=== PATIENT | female | born 1955 | race Caucasian/White ===

== ENCOUNTER 2016-06-18 13:25 | Observation (INO) ==
--- NOTE | 2016-06-18 13:38 | Emergency Department Note ---
Disposition Clinical Impression: Hypoxia, CHF (congestive heart failure), Obesity Disposition: Admitted As Inpatient Condition: Good Time of Disposition: 15:30 (clarisa carr) Neuro HPI - General Chief Complaint: ED Neuro Symptoms/Deficit Stated Complaint: int slurred speech x3 days Time Seen by Provider: 06/18/16 13:40 Source: patient, EMS Mode of arrival: ambulatory Limitations: no limitations Nursing Notes Reviewed: Yes Vital Signs Reviewed: Yes - History of Present Illness HPI Narrative: Emesis for the last 3 days increasing right-sided weakness and increasing sleeping patient tells me though she is just tired and does not feel good denies any headache any blurred vision double vision patient does not feel that she has had a stroke she said this is significantly different than prior she has a cough hemoptysis or sputum production but then later tells me she is having dyspnea family tells me that she is having cough and congestion she denies any blurred vision double vision loss as she denies any abdominal pain or discomfort she denies any lightheadedness dizziness she does admit to having bilateral lower extremity edema has taped with Nayla boots at this time shows Onset of Symptoms Date: 06/15/16 Symptom Onset Unknown: No Timing confirmed by: family member Location: speech, altered History of same: Yes (mar CVA) Severity: mild Quality: weakness Symptoms Improving: No (no change per family) Improves with: none Worsens with: none Context: gradual onset On Anticoagulants: No Associated symptoms: Reports: confusion, loss of appetite, malaise, weakness. Denies: chest pain, cough, diaphoresis, fever/chills, headaches, nausea/vomiting , vertigo, shortness of breath, syncope Treatments Prior to Arrival: none - Related Data Home Medications: Home Medications Medication Instructions Recorded Confirmed Aspirin [Lo-Dose Aspirin EC] 81 mg PO DAILY 01/18/16 06/18/16 Calcium Carbonate [Calcium] 600 mg PO DAILY 01/18/16 06/18/16 DiphenhydraMINE [Benadryl] 25 mg PO PRN PRN 01/18/16 06/18/16 Losartan [Cozaar] 25 mg PO DAILY 01/18/16 06/18/16 Methocarbamol [Robaxin-750] 750 mg PO TID 01/18/16 06/18/16 OxyCODONE/APAP 10/325 [Percocet 1 each PO Q6HR PRN 01/18/16 06/18/16 10/325 MG] Saxagliptin HCl [Onglyza] 5 mg PO DAILY 01/18/16 06/18/16 Sertraline [Zoloft] 25 mg PO DAILY 01/18/16 06/18/16 Tiotropium [Spiriva] 18 mcg IH DAILY 01/18/16 06/18/16 Previous Rx's Medication Instructions Recorded Metoprolol [Lopressor] 50 mg PO BID #60 tablet 01/20/16 Verapamil ER (24 HR) [Calan SR] 180 mg PO DAILY #30 tablet.er 01/20/16 Bumetanide [Bumex] 1 mg PO DAILY #30 tablet 02/15/16 Potassium Chloride [Klor-Con 20 meq PO BID #120 02/15/16 Sprinkle] Albuterol Sulfate [Albuterol 2 puff IH Q4HR PRN #0 03/31/16 Inhaler] Ascorbic Acid [Vitamin C] 500 mg PO 0630 #30 tablet 03/31/16 Ferrous Sulfate 325 mg PO 0630 #30 tablet 03/31/16 Allergies/Adverse Reactions: Allergies Allergy/AdvReac Type Severity Reaction Status Date / Time lisinopril AdvReac Cough Verified 12/18/15 15:01 morphine AdvReac Nausea Verified 12/18/15 15:01 Penicillins AdvReac Nausea Verified 12/18/15 15:01 ranitidine [From Zantac] AdvReac Diarrhea Verified 12/18/15 15:01 All systems ED: reviewed and negative except as stated. Constitutional: Reports: weakness. Denies: fever, chills, weight change Eyes: Denies: vision change ENT ED: Denies: ear pain, throat pain Cardiovascular: Denies: chest pain, palpitations Respiratory: Reports: cough, dyspnea, wheezes, sputum production Gastrointestinal: Denies: abdominal pain, nausea, vomiting Genitourinary: Denies: urgency, dysuria, frequency Musculoskeletal: Denies: back pain, neck pain, joint swelling Integumentary: Denies: rash, abrasion, lesions Neurological: Denies: headache, weakness Psychiatric: Denies: anxiety, depression Endocrine: Denies: fatigue Hematological/Lymphatic: Denies: easy bleeding Allergic/Immunologic: Denies: facial swelling Past Medical History - Past Medical History Attestation: Yes The following information was validated with the patient. Source: patient, old records reviewed, nursing notes reviewed Medical history: Reports: arthritis, cancer, COPD, CVA, diabetes, GERD, hypertension, migraine, osteoporosis, other Surgical history: Reports: appendectomy, breast surgery, , cancer surgery, hysterectomy, knee replacement, other Psychiatric history: Reports: anxiety, depression TEST CASE DEVELOPER history: Reports: no TEST CASE DEVELOPER history - Social History Smoking Status: Current every day smoker Smokeless Tobacco Status: No Alcohol use: Reports: none Drug use: Reports: none Physical Exam - General Limitations: no limitations General appearance: alert, in no apparent distress - Head Head exam: atraumatic, normocephalic, normal inspection - Eye Eye exam: Present: normal appearance, PERRL, EOMI - ENT ENT exam: normal exam, normal oropharynx, mucous membranes moist, normal external ear exam - Neck Neck exam: Present: normal inspection, full ROM, trachea midline - Chest Chest inspection: Present: normal inspection, symmetric chest wall rise - Respiratory Respiratory exam: Present: normal lung sounds bilaterally - Cardiovascular Cardiovascular exam: Present: regular rate, normal rhythm, normal heart sounds - Abdominal Exam Abdominal exam: Present: soft, Non-Tender, normal bowel sounds. Absent: mass, pulsatile mass - Extremities Exam Extremities exam: Present: pedal edema, joint swelling, other (slightly ) - Expanded Upper Extremity Exam Shoulder exam: Present: normal inspection, full ROM Arm exam: Present: normal inspection, full ROM Elbow exam: Present: normal inspection, full ROM Forearm/Wrist exam: Present: normal inspection, full ROM Hand exam: Present: normal inspection, full ROM Vascular exam: Normal: capillary refill, radial pulse - Expanded Lower Extremity Exam Hip/Pelvis exam: Present: normal inspection, full ROM Upper leg exam: Present: normal inspection, full ROM Knee exam: Present: normal inspection, full ROM Lower leg exam: Present: normal inspection, full ROM, tenderness, swelling Ankle exam: Present: normal inspection, full ROM, tenderness, swelling Foot/toe exam: Present: normal inspection, full ROM, tenderness, swelling Neurovascular/Tendon exam: Present: normal capillary refill, normal fine/light touch. Absent: motor deficit, sensory deficit, tendon deficit - Back Exam Back exam: Present: normal inspection, full ROM - Neurological Exam Neurological exam: Present: alert, oriented X3, CN II-XII intact - Psychiatric Psychiatric exam: Present: normal affect, normal mood - Skin Skin exam: Present: warm, dry, intact, normal color Course Course Narrative: She presents was seen and examined laboratory data was done showing no acute evidence of stroke at this time may be because of the results of his recent infection or his hypoxia this made given him the presentation that he was having some weakness as result discussion with the family and the patient the patient was added for observation for Dr. Ball Vital Signs Temperature 97.5 F L 06/18/16 13:28 Pulse Rate 77 06/18/16 13:28 Respiratory Rate 18 06/18/16 13:28 Blood Pressure 134/51 06/18/16 13:28 O2 Sat by Pulse Oximetry 85 L 06/18/16 13:28 Temperature 97.6 F 06/18/16 16:15 Pulse Rate 81 06/18/16 16:15 Respiratory Rate 17 06/18/16 16:22 Blood Pressure 133/56 06/18/16 16:15 O2 Sat by Pulse Oximetry 91 L 06/18/16 16:22 Oxygen Delivery Oxygen Delivery Nasal Cannula Neuro Symptoms/Deficit - Differential Diagnosis Likely: cerebrovascular accident - Medical Records Medical records reviewed: Yes I reviewed the patient's medical records. - Lab Data Lab results reviewed: Yes I reviewed the patient's lab results. Result diagrams: 06/18/16 13:49 06/18/16 13:49 Lab Results 06/18/16 06/18/16 06/18/16 Range/Units 13:37 13:49 13:49 WBC 12.1 H (4.3-11.1) K/mcL RBC 5.01 H (3.82-4.97) M/mcL Hgb 13.7 (11.5-15.4) g/dL Hct 43.2 (35.3-44.9) % MCV 86.2 (83.0-100.0) fL MCH 27.3 L (28.0-33.3) pg MCHC 31.7 (31.6-35.5) g/dL RDW 17.0 H (11.5-14.5) % Plt Count 167 (140-400) K/mcL MPV 12.4 (9.4-12.4) fL Immature Gran % 0.6 (0-4) % Seg Neutrophils % 63.0 % Lymphocytes % 25.5 % Monocytes % 9.1 % Eosinophils % 1.2 % Basophils % 0.6 % Neutrophils # 7.6 (1.6-8.9) K/mcL Lymphocytes # 3.1 (0.6-4.6) K/mcL Monocytes # 1.1 (0.0-1.3) K/mcL Eosinophils # 0.2 (0.0-0.6) K/mcL Basophils # 0.1 (0.0-0.2) K/mcL Platelet Estimate Normal (Normal) Large Platelets Present A (Not Present) Anisocytosis 1+ A (Not Present) PT 13.9 H (9.4-12.1) Seconds INR 1.3 APTT 38.3 H (26.0-36.0) Seconds Sodium (136-145) mEq/L Potassium (3.5-4.5) mEq/L Chloride (98-109) mEq/L Carbon Dioxide (19-29) mEq/L BUN (7-20) mg/dL Creatinine (0.57-1.11) mg/dL Est GFR ( Amer) (> 60) Est GFR (Non-Af Amer) (> 60) BUN/Creatinine Ratio (6-26) Glucose (70-99) mg/dL POC Glucose 113 H (58-89) Calculated Osmolality (280-300) Calcium (8.6-10.8) mg/dL Troponin I (0-0.03) ng/mL B-Natriuretic Peptide (0-100) pg/mL TSH (0.350-4.840) mcIU/mL 06/18/16 06/18/16 06/18/16 Range/Units 13:49 13:49 13:49 WBC (4.3-11.1) K/mcL RBC (3.82-4.97) M/mcL Hgb (11.5-15.4) g/dL Hct (35.3-44.9) % MCV (83.0-100.0) fL MCH (28.0-33.3) pg MCHC (31.6-35.5) g/dL RDW (11.5-14.5) % Plt Count (140-400) K/mcL MPV (9.4-12.4) fL Immature Gran % (0-4) % Seg Neutrophils % % Lymphocytes % % Monocytes % % Eosinophils % % Basophils % % Neutrophils # (1.6-8.9) K/mcL Lymphocytes # (0.6-4.6) K/mcL Monocytes # (0.0-1.3) K/mcL Eosinophils # (0.0-0.6) K/mcL Basophils # (0.0-0.2) K/mcL Platelet Estimate (Normal) Large Platelets (Not Present) Anisocytosis (Not Present) PT (9.4-12.1) Seconds INR APTT (26.0-36.0) Seconds Sodium 138 (136-145) mEq/L Potassium 4.1 (3.5-4.5) mEq/L Chloride 98 (98-109) mEq/L Carbon Dioxide 30 H (19-29) mEq/L BUN 14 (7-20) mg/dL Creatinine 0.83 (0.57-1.11) mg/dL Est GFR ( Amer) > 60 (> 60) Est GFR (Non-Af Amer) > 60 (> 60) BUN/Creatinine Ratio 17 (6-26) Glucose 109 H (70-99) mg/dL POC Glucose (58-89) Calculated Osmolality 287 (280-300) Calcium 8.6 (8.6-10.8) mg/dL Troponin I 0.00 (0-0.03) ng/mL B-Natriuretic Peptide 169 H (0-100) pg/mL TSH 1.113 (0.350-4.840) mcIU/mL - Radiology Data Radiology results reviewed: Yes I reviewed the patient's radiology results. ITS Impressions Chest X-Ray 06/18/16 13:35 IMPRESSION: Cardiomegaly with borderline vascular congestion. D/ / Sergo Bass MD / Sergo Bass MD Interpreting Provider: Sergo Bass MD Head CT 06/18/16 13:35 IMPRESSION: No acute intracranial abnormality. If acute cerebral infarct is a clinical concern, an MRI is a sensitive study. D/ / Peggy Jacinto Cha, MD / Peggy Jacinto Cha, MD Interpreting Provider: Peggy Jacinto Cha, MD - EKG Data EKG attestation: Yes I reviewed and interpreted this EKG. EKG results narrative: Rhythm NSR LBBB Heart Rate 74 MA 184 QRS 148 QT 435 Axes -40 TPA Checklist - LKW: 3-4.5 hrs Add. Contraindications Patient/family understanding: The patient/family members have been counseled and understood the risk, benefit , and alternatives of treatment.
[2016-06-18 14:00] LABS: Basophils # 0.1 K/mcL (0.0-0.2); Basophils % 0.6 %; Eosinophils # 0.2 K/mcL (0.0-0.6); Eosinophils % 1.2 %; Hematocrit 43.2 % (35.3-44.9); Hemoglobin 13.7 g/dL (11.5-15.4); Immature Granulocytes % 0.6 % (0-4); Lymphocytes # 3.1 K/mcL (0.6-4.6); Lymphocytes % 25.5 %; Mean Corpuscular HGB Conc 31.7 g/dL (31.6-35.5); Mean Corpuscular Hemoglobin 27.3 pg (28.0-33.3); Mean Corpuscular Volume 86.2 fL (83.0-100.0); Mean Platelet Volume 12.4 fL (9.4-12.4); Monocytes # 1.1 K/mcL (0.0-1.3); Monocytes % 9.1 %; Neutrophils # 7.6 K/mcL (1.6-8.9); Platelet Count 167 K/mcL (140-400); Red Blood Count 5.01 M/mcL (3.82-4.97)
[2016-06-18 14:06] LABS: INR 1.3; Prothrombin Time 13.9 Seconds (9.4-12.1)
[2016-06-18 14:14] LABS: Activated Partial Thrombo Time 38.3 Seconds (26.0-36.0)
[2016-06-18 14:15] LABS: BUN/Creatinine Ratio 17 (6-26); Blood Urea Nitrogen 14 mg/dL (7-20); Calcium 8.6 mg/dL (8.6-10.8); Carbon Dioxide 30 mEq/L (19-29); Chloride 98 mEq/L (98-109); Glucose 109 mg/dL (70-99); Osmolality,Calculated 287 (280-300); Potassium 4.1 mEq/L (3.5-4.5); Sodium 138 mEq/L (136-145); eGFR For African Americans > 60 (> 60); eGFR For Non-African Americans > 60 (> 60)
[2016-06-18 14:20] LABS: Anisocytosis 1+ (Not Present); Large Platelets Present (Not Present); Platelet Estimate Normal (Normal)
[2016-06-18 14:36] LABS: Thyroid Stimulating Hormone 1.113 mcIU/mL (0.350-4.840)
[2016-06-18] MEDS ORDERED: Bumetanide 1 MG/4 ML VIAL IVP ONE (14:57)
[2016-06-18 15:26] LABS: Bilirubin,Urine Negative (Negative); Blood,Urine Large (Negative); Clarity,Urine Cloudy (Clear); Color,Urine Yellow (Yellow); Glucose,Urine (UA) Normal (Normal); Ketones,Urine Negative (Negative); Leukocyte Esterase,Urine Large (Negative); Nitrite,Urine Positive (Negative); PH,Urine 7.5 pH Units (5.0-8.0); Protein,Urine 30 mg/dL (Neg-Trace); Specific Gravity,Urine 1.015 (1.010-1.025); Urobilinogen,Urine Normal (Normal)
[2016-06-18 15:32] LABS: RBC,Urine 30-50 per hpf (0-3); WBC,Urine TNTC per hpf (0-3)
[2016-06-18 15:33] LABS: Bacteria,Urine Moderate per hpf (None-Few); Squamous Epithelial Cell,Urine Few per lpf (None-Few)
[2016-06-18] MEDS ORDERED: Naloxone 0.4 MG/ML INJ IVP PRN (16:04)
[2016-06-18] MEDS ORDERED: CefTRIAXone 1,000 MG in D5% in Water (Mini-Bag+) 100 ML IVPB ONE (16:04)
[2016-06-18] MEDS ORDERED: Bumetanide 1 MG/4 ML VIAL IVP SCH (17:00)
[2016-06-18] MEDS: Methocarbamol 500 MG TABLET PO SCH (22:09)
[2016-06-18] MEDS: *HR* OxyCODONE/APAP 10/325 TABLET PO PRN (22:12)
[2016-06-19] MEDS: *HR* OxyCODONE/APAP 10/325 TABLET PO PRN ×2 (04:31→10:27)
[2016-06-19] MEDS ORDERED: Ascorbic Acid 500 MG TABLET PO SCH (06:30)
[2016-06-19 06:40] LABS: Basophils # 0.1 K/mcL (0.0-0.2); Basophils % 0.9 %; Eosinophils # 0.1 K/mcL (0.0-0.6); Eosinophils % 1.1 %; Hematocrit 45.5 % (35.3-44.9); Hemoglobin 14.1 g/dL (11.5-15.4); Immature Granulocytes % 0.6 % (0-4); Lymphocytes # 2.2 K/mcL (0.6-4.6); Lymphocytes % 19.2 %; Monocytes % 8.5 %; Neutrophils # 8.1 K/mcL (1.6-8.9); Platelet Count 170 K/mcL (140-400); Red Blood Count 5.23 M/mcL (3.82-4.97); Red Cell Distribution Width 16.7 % (11.5-14.5); Segmented Neutrophils % 69.7 %
[2016-06-19 06:45] LABS: INR 1.4; Prothrombin Time 14.7 Seconds (9.4-12.1)
[2016-06-19 06:48] LABS: Activated Partial Thrombo Time 39.8 Seconds (26.0-36.0)
[2016-06-19 06:56] LABS: BUN/Creatinine Ratio 16 (6-26); Blood Urea Nitrogen 11 mg/dL (7-20); Calcium 8.9 mg/dL (8.6-10.8); Carbon Dioxide 32 mEq/L (19-29); Chloride 99 mEq/L (98-109); Glucose 120 mg/dL (70-99); Osmolality,Calculated 297 (280-300); Potassium 3.8 mEq/L (3.5-4.5); Sodium 143 mEq/L (136-145); eGFR For African Americans > 60 (> 60); eGFR For Non-African Americans > 60 (> 60)
[2016-06-19] MEDS ORDERED: Bumetanide 1 MG/4 ML VIAL IVP SCH (08:00)
[2016-06-19 08:04] VITALS: BP 117/65
[2016-06-19] MEDS ORDERED: Verapamil ER (24 HR) 180 MG TABLET.ER PO SCH (09:00)
[2016-06-19] MEDS ORDERED: Tiotropium 18 MCG inhalation IH SCH (09:00)
[2016-06-19] MEDS ORDERED: Aspirin Enteric Coated 81 MG Tablet PO SCH (09:00)
[2016-06-19] MEDS ORDERED: Pantoprazole 40 MG VIAL IVP SCH (09:00)
[2016-06-19] MEDS: Methocarbamol 500 MG TABLET PO SCH (09:17)
--- NOTE | 2016-06-19 10:16 | Internal Med History&Physical ---
Date of Encounter: 06/19/16 Time of Encounter: 09:50 Assessment and Plan (1) UTI (urinary tract infection) Current visit: Yes Status: Acute She was given Rocephin in the emergency room. Further workup will be done as needed. Qualifiers: Urinary tract infection type: site unspecified Hematuria presence: with hematuria Qualified Code(s): N39.0 - Urinary tract infection, site not specified; R31.9 - Hematuria, unspecified Internal Medicine - H&P: HPI Chief complaint: Nausea Admitted From: Home Plans for Post Hospital Care: Home History of present illness: Ms. Ocampo is a 61 year old female who came to emergency room stating she had nausea for 3 days. She had a minimal vomiting but significant dry heaves. There was no diarrhea or significant abdominal pain or dyspnea. Her daughter convinced her to come to emergency room. She was evaluated and admitted to [facility] floor for ongoing care needs. She states she has had no further significant dry heaves and has no new complaints. She feels improved and wishes to be discharged home. Past Med Surg Social Fam HX - Past Medical History Medical history: arthritis, cancer, COPD, CVA, diabetes, GERD, hypertension, migraine, osteoporosis, other Psychiatric history: anxiety, depression - Past Surgical History Surgical History: appendectomy, breast surgery, , cancer surgery, hysterectomy, knee replacement, other - Social History Smoking Status: Current every day smoker Smokeless Tobacco Status: No Alcohol use: none Drug use: none - Family History Father History Unknown: Yes Hx Family Cardiac Disorders: Yes ([place]) Hx Family Endocrine Disorder: Yes Internal Medicine - H&P: Meds Aspirin [Lo-Dose Aspirin EC] 81 mg PO DAILY 01/18/16 [History] Calcium Carbonate [Calcium] 600 mg PO DAILY 01/18/16 [History] DiphenhydraMINE [Benadryl] 25 mg PO PRN PRN 01/18/16 [History] Losartan [Cozaar] 25 mg PO DAILY 01/18/16 [History] Methocarbamol [Robaxin-750] 750 mg PO TID 01/18/16 [History] OxyCODONE/APAP 10/325 [Percocet 10/325 MG] 1 each PO Q6HR PRN 01/18/16 [History] Saxagliptin HCl [Onglyza] 5 mg PO DAILY 01/18/16 [History] Sertraline [Zoloft] 25 mg PO DAILY 01/18/16 [History] Tiotropium [Spiriva] 18 mcg IH DAILY 01/18/16 [History] Metoprolol [Lopressor] 50 mg PO BID #60 tablet 01/20/16 [Rx] Verapamil ER (24 HR) [Calan SR] 180 mg PO DAILY #30 tablet.er 01/20/16 [Rx] Bumetanide [Bumex] 1 mg PO DAILY #30 tablet 02/15/16 [Rx] Potassium Chloride [Klor-Con Sprinkle] 20 meq PO BID #120 02/15/16 [Rx] Albuterol Sulfate [Albuterol Inhaler] 2 puff IH Q4HR PRN #0 03/31/16 [Rx] Ascorbic Acid [Vitamin C] 500 mg PO 0630 #30 tablet 03/31/16 [Rx] Ferrous Sulfate 325 mg PO 0630 #30 tablet 03/31/16 [Rx] Allergies lisinopril Adverse Reaction (Verified 12/18/15 15:01) Cough morphine Adverse Reaction (Verified 12/18/15 15:01) Nausea Penicillins Adverse Reaction (Verified 12/18/15 15:01) Nausea ranitidine [From Zantac] Adverse Reaction (Verified 12/18/15 15:01) Diarrhea All Systems PM: A 10-system review of systems was performed and is negative for pertinent findings except as documented above in the HPI. Review of systems: Review of systems from her March 2016 [facility] hospitalization were reviewed and revised as below. General: Her weight has been stable at 112 kg since March 2016 [facility] swing bed stay. Cardiovascular: She has history of hypertension. She denies [place] DVT or pulmonary embolus. She had an echocardiogram done 12/22/2015 which was technically challenging with suboptimal windows. LV systolic function appeared grossly normal and there were no significant valvular abnormalities seen. She had a Regadenoson nuclear test 12/22/2015 which showed no evidence of ischemia or infarct. Respiratory: She smoked from age 5 to present time up to 3 packs per day. She has a diagnosis of COPD with PFTs done several years ago. She wears oxygen at home at bedtime and when necessary during the daytime. GI: She has had cholecystectomy. She denies disorders of her liver or exocrine pancreas : she denies hematuria or dysuria or kidney stones Neurologic: She denies large distribution strokes or seizures Endocrine: She was diagnosed with DM 2 approximately 2004. She has hyperlipidemia and denies thyroid disease Hematology/oncology: She had right mastectomy 2005 for breast cancer. This was apparently curative and she denies chemotherapy or XRT post surgery. She had thrombocytopenia during her [facility] hospital stay. She denies other blood disorders or internal malignancies Psychiatric: She has depression but no significant anxiety or other mental health issues Musk skeletal: She has history of gout, DJD, spinal stenosis, and osteoporosis with lumbar compression fractures. - Constitutional Vitals: Temp Pulse Resp BP Pulse Ox 98.0 F 90 16 117/65 83 L 06/19/16 06:00 06/19/16 06:00 06/19/16 08:49 06/19/16 06:00 06/19/16 08:49 Exam: Gen.: She is a well-developed well-nourished female who appears in no severe distress at present time. HEENT: Head is atraumatic and normocephalic. Eyes: EOMI. There is no scleral icterus. Mouth: Mucosa is moist. Neck: Supple and nontender. There is no thyromegaly or adenopathy noted. Heart: Regular without murmurs gallops or ectopics. Lungs: No wheezes or crackles are heard. Back: Straight without flank tenderness or presacral edema Abdomen: Soft and nontender. No masses or guarding are noted. She has a large abdomen. There is a right upper quadrant well healed surgical scar. Extremities: Her legs are wrapped with gauze and Coban. I did not undo the wrapping. There is no pitting edema noted. Neurologic: Mental status: She is talkative and a good historian. Cranial nerves: Smile is symmetric. Forehead wrinkles bilaterally. Tongue protrudes midline. EOMI. Motor: There is no pronator drift. Cerebellar: Finger to nose is intact bilaterally. Skin: Warm and dry Internal Med - H&P Results - Labs CBC & Chem 7: 06/19/16 06:10 06/19/16 06:10 Labs: Short CBC 06/19/16 Range/Units 06:10 WBC 11.6 H (4.3-11.1) K/mcL Hgb 14.1 (11.5-15.4) g/dL Hct 45.5 H (35.3-44.9) % Plt Count 170 (140-400) K/mcL Neutrophils # 8.1 (1.6-8.9) K/mcL BMP 06/19/16 06:10 Sodium 143 Potassium 3.8 Chloride 99 Carbon Dioxide 32 H BUN 11 Creatinine 0.69 Glucose 120 H Calcium 8.9 Urine 06/18/16 Range/Units 15:20 Urine Color Yellow (Yellow) Urine Clarity Cloudy A (Clear) Urine pH 7.5 (5.0-8.0) pH Units Ur Specific [place] 1.015 (1.010-1.025) Urine Protein 30 H (Neg-Trace) mg/dL Urine Glucose (UA) Normal (Normal) mg/dL
--- NOTE | 2016-06-19 10:27 | Discharge Summary ---
Date of Encounter: 06/19/16 Time of Encounter: 09:50 - Discharge Diagnosis (1) UTI (urinary tract infection) Priority: Primary Status: Acute Qualifiers: Urinary tract infection type: site unspecified Hematuria presence: with hematuria Qualified Code(s): N39.0 - Urinary tract infection, site not specified; R31.9 - Hematuria, unspecified - Discharge Medications Prescriptions: Sulfamethoxazole/Trimeth DS [Bactrim DS] 1 each PO BID #6 tablet Home Medications: Aspirin [Lo-Dose Aspirin EC] 81 mg PO DAILY 01/18/16 [History] Calcium Carbonate [Calcium] 600 mg PO DAILY 01/18/16 [History] DiphenhydraMINE [Benadryl] 25 mg PO PRN PRN 01/18/16 [History] Losartan [Cozaar] 25 mg PO DAILY 01/18/16 [History] Methocarbamol [Robaxin-750] 750 mg PO TID 01/18/16 [History] OxyCODONE/APAP 10/325 [Percocet 10/325 MG] 1 each PO Q6HR PRN 01/18/16 [History] Saxagliptin HCl [Onglyza] 5 mg PO DAILY 01/18/16 [History] Sertraline [Zoloft] 25 mg PO DAILY 01/18/16 [History] Tiotropium [Spiriva] 18 mcg IH DAILY 01/18/16 [History] Metoprolol [Lopressor] 50 mg PO BID #60 tablet 01/20/16 [Rx] Verapamil ER (24 HR) [Calan SR] 180 mg PO DAILY #30 tablet.er 01/20/16 [Rx] Bumetanide [Bumex] 1 mg PO DAILY #30 tablet 02/15/16 [Rx] Potassium Chloride [Klor-Con Sprinkle] 20 meq PO BID #120 02/15/16 [Rx] Albuterol Sulfate [Albuterol Inhaler] 2 puff IH Q4HR PRN #0 03/31/16 [Rx] Ascorbic Acid [Vitamin C] 500 mg PO 0630 #30 tablet 03/31/16 [Rx] Ferrous Sulfate 325 mg PO 0630 #30 tablet 03/31/16 [Rx] Sulfamethoxazole/Trimeth DS [Bactrim DS] 1 each PO BID #6 tablet 06/19/16 [Rx] Allergies/Adverse Reactions: Allergies lisinopril Adverse Reaction (Verified 12/18/15 15:01) Cough morphine Adverse Reaction (Verified 12/18/15 15:01) Nausea Penicillins Adverse Reaction (Verified 12/18/15 15:01) Nausea ranitidine [From Zantac] Adverse Reaction (Verified 12/18/15 15:01) Diarrhea Date of admission: 06/18/16 15:16 Primary care physician: Maria Luz Bonner CNP Consults: 06/18/16 16:31 Consult to Nutrition [CONS] Routine Comment: Consulting Provider: NUTRITION Reason for Dietary Consult: MST Score Consult to Video Software Engineer [CONS] Routine Reason for SW Consult: d/c planning - Patient Status Disposition: Home Health Service Condition: Good Overall status at discharge: patient is progressing back to baseline - Discharge Instructions Follow Up With: Maria Luz Bonner CNP [Primary Care Provider] - 1 week - Diet and Activity Activity: resume usual activities as tolerated Diet: advance to your usual diet Hospital course: Ms. Ocampo is a 61 year old female who came to emergency room stating she had nausea for 3 days. She had a minimal vomiting but significant dry heaves. There was no diarrhea or significant abdominal pain or dyspnea. Her daughter convinced her to come to emergency room. She was evaluated and admitted to [facility] floor for ongoing care needs. Initial orders were written by the emergency room physician. I saw her on June 19 and performed a history physical and discharge. She was given a dose of Rocephin in emergency room. She remained afebrile during her hospital stay. When I saw her she reported she had no significant dry heaves and felt back to her baseline and wished to be discharged home. She had been able to ambulate in the room satisfactorily and had adequate intake of food and fluids. She will be discharged home and follow with Maria Luz Bonner CNP as scheduled in approximately 10 days. She will receive 3 days of Septra DS twice a day as empiric treatment for UTI. I encouraged her to become a nonsmoker. - Time Spent with Patient Total time spent providing and/or coordinating discharge services: - Constitutional Vitals: Temp Pulse Resp BP Pulse Ox 98.0 F 90 16 117/65 83 L 06/19/16 06:00 06/19/16 06:00 06/19/16 08:49 06/19/16 06:00 06/19/16 08:49
--- NOTE | 2016-06-19 10:31 | Physician Discharge Referral ---
Home Health/Hosp Referral Info Transfer to: Home Health Attending Provider: Quinn Provider in Charge Post Discharge: PCP (Maria Luz Bonner CNP) - Diagnosis (1) UTI (urinary tract infection) Priority: Primary Status: Acute - Respiratory Orders Smoking Cessation: Smoking cessation has been advised. For more information, call the [place] Tobacco Quit Line at 5-963-TCZE-NOW. - Dressing/Wound Care Type of Dressing/Treatments w/Frequency: Continue leg wraps as previously ordered. - Diet/Nutrition Diet/Nutrition Orders: No Concentrated Sweets - Activity Activity Orders: Ambulate - Services Needed Following services are medically necessary services: Nursing, Home Health Aide, Physical Therapy, Occupational Therapy - Transfer Medications Prescriptions: Sulfamethoxazole/Trimeth DS [Bactrim DS] 1 each PO BID #6 tablet Home Medications: Aspirin [Lo-Dose Aspirin EC] 81 mg PO DAILY 01/18/16 [History] Calcium Carbonate [Calcium] 600 mg PO DAILY 01/18/16 [History] DiphenhydraMINE [Benadryl] 25 mg PO PRN PRN 01/18/16 [History] Losartan [Cozaar] 25 mg PO DAILY 01/18/16 [History] Methocarbamol [Robaxin-750] 750 mg PO TID 01/18/16 [History] OxyCODONE/APAP 10/325 [Percocet 10/325 MG] 1 each PO Q6HR PRN 01/18/16 [History] Saxagliptin HCl [Onglyza] 5 mg PO DAILY 01/18/16 [History] Sertraline [Zoloft] 25 mg PO DAILY 01/18/16 [History] Tiotropium [Spiriva] 18 mcg IH DAILY 01/18/16 [History] Metoprolol [Lopressor] 50 mg PO BID #60 tablet 01/20/16 [Rx] Verapamil ER (24 HR) [Calan SR] 180 mg PO DAILY #30 tablet.er 01/20/16 [Rx] Bumetanide [Bumex] 1 mg PO DAILY #30 tablet 02/15/16 [Rx] Potassium Chloride [Klor-Con Sprinkle] 20 meq PO BID #120 02/15/16 [Rx] Albuterol Sulfate [Albuterol Inhaler] 2 puff IH Q4HR PRN #0 03/31/16 [Rx] Ascorbic Acid [Vitamin C] 500 mg PO 629 #30 tablet 10/20/16 [Rx] Ferrous Sulfate 325 mg PO 0630 #30 tablet 03/31/16 [Rx] Sulfamethoxazole/Trimeth DS [Bactrim DS] 1 each PO BID #6 tablet 06/19/16 [Rx] Allergies/Adverse Reactions: Allergies lisinopril Adverse Reaction (Verified 12/18/15 15:01) Cough morphine Adverse Reaction (Verified 12/18/15 15:01) Nausea Penicillins Adverse Reaction (Verified 12/18/15 15:01) Nausea ranitidine [From Zantac] Adverse Reaction (Verified 12/18/15 15:01) Diarrhea Certification: Further, I certify that my clinical findings support that this patient is homebound (i.e. absences from home require considerable and taxing effort and are for medical reasons or taoist services or infrequently or short duration when for other reasons) because: Homebound Reason: Patient requires assistance of a person or device to safely leave home (Leg wraps for cellulitis) Attestation: My signature below is to certify that this patient is under my care and that I, or nurse practitioner, or a physician's paraprofessional education assistant working with me, has a face-to -face encounter with this patient.
--- NOTE | 2016-06-20 13:34 | Electrocardiograph Report ---
[facility] Test Date: 2016-06-18 Pat Name: Brenda Ocampo Department: [id number] Room: 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
== END 2016-06-19 11:48 | disposition home health service (06) ==
LOC: INPPIK 13:25 → EMEROOPIK 13:25 → INPPIK 16:01
PROVIDERS: ADMIT Internal Medicine; ATTEND Internal Medicine

== ENCOUNTER 2016-07-05 21:31 | Inpatient (IN) ==
[2016-07-05] MEDS ORDERED: Levofloxacin 750 MG/150 ML 750 MG/150 ML BAG IVPB ONE (21:36)
[2016-07-05] MEDS ORDERED: Ipratropium/Albuterol Neb 3 ML IH ONE (21:36)
[2016-07-05] MEDS ORDERED: 0.9 % Sodium Chloride 1,000 ML IVC ONE (21:36)
--- NOTE | 2016-07-05 21:40 | Emergency Department Note ---
Disposition Clinical Impression: Hypoxemia Pneumonia Qualifiers: Pneumonia type: due to unspecified organism Laterality: right Lung location: lower lobe of lung Qualified Code(s): J18.1 - Lobar pneumonia, unspecified organism Disposition: Admitted As Inpatient Condition: Good SOB HPI - General Chief Complaint: ED Shortness of Breath/Dyspnea Stated Complaint: Dyspnea, chest pain onset 1 hour Time Seen by Provider: 07/05/16 21:38 Source: patient, family, EMS Mode of arrival: EMS Limitations: no limitations Nursing Notes Reviewed: Yes Vital Signs Reviewed: Yes - History of Present Illness The patient has been recently released with a history of pneumonia. She has had increased shortness of breath with some chest and back pain in the last hour. She has also seen more sleepy and the family is concerned if she might of had a stroke type syndrome. The squad was called and they found her to be alert, interactive and neurologically symmetric and unimpaired. She has received aspirin and nitroglycerin and oxygen supplementation in route. She states she is having back pain at this time but not chest pain. She has had occasional headaches but nothing described as severe. She is not having light sensitivity or neck pain or stiffness. She denies any extremity numbness, tingling or weakness. She denies abdominal pain, vomiting or diarrhea. Pt Subjective Complaint: shortness of breath, pain with inspiration Onset (ago): hour(s) (1) Context: recent illness Severity: moderate Consistency/Duration: constant Improves with: oxygen Worsens with: coughing Known history of: other (Recent pneumonia) Associated symptoms: Reports: chest pain, pain with inspiration, fever, cough, wheezing. Denies: sputum production, orthopnea, lower extremity pain, polyuria , polydipsia, parasthesias, palpitations, hemoptysis, diaphoresis, nausea/ vomiting, syncope, abdominal pain, rash Treatment prior to arrival: oxygen, aspirin, nitroglycerin Cough present: Yes Cough Description: Voluntary, Non-Productive, Hacking Cough Frequency: Intermittent Sputum production: No - Related Data Home oxygen amount: 4 liters Home Medications Medication Instructions Recorded Confirmed Aspirin [Lo-Dose Aspirin EC] 81 mg PO DAILY 01/18/16 06/18/16 Calcium Carbonate [Calcium] 600 mg PO DAILY 01/18/16 06/18/16 DiphenhydraMINE [Benadryl] 25 mg PO PRN PRN 01/18/16 06/18/16 Losartan [Cozaar] 25 mg PO DAILY 01/18/16 06/18/16 Methocarbamol [Robaxin-750] 750 mg PO TID 01/18/16 06/18/16 OxyCODONE/APAP 10/325 [Percocet 1 each PO Q6HR PRN 01/18/16 06/18/16 10/325 MG] Saxagliptin HCl [Onglyza] 5 mg PO DAILY 01/18/16 06/18/16 Sertraline [Zoloft] 25 mg PO DAILY 01/18/16 06/18/16 Tiotropium [Spiriva] 18 mcg IH DAILY 01/18/16 06/18/16 Previous Rx's Medication Instructions Recorded Metoprolol [Lopressor] 50 mg PO BID #60 tablet 01/20/16 Verapamil ER (24 HR) [Calan SR] 180 mg PO DAILY #30 tablet.er 01/20/16 Bumetanide [Bumex] 1 mg PO DAILY #30 tablet 02/15/16 Potassium Chloride [Klor-Con 20 meq PO BID #120 02/15/16 Sprinkle] Albuterol Sulfate [Albuterol 2 puff IH Q4HR PRN #0 03/31/16 Inhaler] Ascorbic Acid [Vitamin C] 500 mg PO 0630 #30 tablet 03/31/16 Ferrous Sulfate 325 mg PO 0630 #30 tablet 03/31/16 Sulfamethoxazole/Trimeth DS 1 each PO BID #6 tablet 06/19/16 [Bactrim DS] Allergies Allergy/AdvReac Type Severity Reaction Status Date / Time lisinopril AdvReac Cough Verified 12/18/15 15:01 morphine AdvReac Nausea Verified 12/18/15 15:01 Penicillins AdvReac Nausea Verified 12/18/15 15:01 ranitidine [From Zantac] AdvReac Diarrhea Verified 12/18/15 15:01 All systems ED: reviewed and negative except as stated. Past Medical History - Past Medical History Attestation: Yes The following information was validated with the patient. Source: patient, old records reviewed, nursing notes reviewed Medical history: Reports: arthritis, cancer, COPD, CVA, diabetes, GERD, hypertension, migraine, osteoporosis, other Surgical history: Reports: appendectomy, breast surgery, , cancer surgery, hysterectomy, knee replacement, other Psychiatric history: Reports: anxiety, depression TRAINING INSTRUCTOR history: Reports: no TRAINING INSTRUCTOR history - Social History Smoking Status: Current every day smoker Smokeless Tobacco Status: No Alcohol use: Reports: none Drug use: Reports: none Physical Exam - General Limitations: no limitations General appearance: alert, in distress - Head Head exam: atraumatic, normocephalic, normal inspection - Eye Eye exam: Present: normal appearance, PERRL, EOMI. Absent: scleral icterus, conjunctival injection - ENT ENT exam: normal exam, normal oropharynx, mucous membranes moist - Neck Neck exam: Present: normal inspection, full ROM, trachea midline. Absent: tenderness, meningismus - Chest Chest inspection: Present: normal inspection, symmetric chest wall rise. Absent : tenderness - Respiratory Respiratory exam: Present: respiratory distress, prolonged expiratory phase. Absent: wheezes - Cardiovascular Cardiovascular exam: Present: regular rate, normal rhythm, tachycardia, normal heart sounds - Abdominal Exam Abdominal exam: Present: soft, Non-Tender, normal bowel sounds. Absent: tenderness, distention, guarding, rebound, rigidity - Extremities Exam Extremities exam: Present: normal inspection, full ROM, normal capillary refill. Absent: tenderness, pedal edema, calf tenderness - Expanded Lower Extremity Exam Neurovascular/Tendon exam: Present: normal capillary refill. Absent: motor deficit, sensory deficit, tendon deficit Gait: not tested/not observed - Back Exam Back exam: Present: normal inspection, full ROM. Absent: tenderness, CVA tenderness (R), CVA tenderness (L) - Neurological Exam Neurological exam: Present: alert, oriented X3, reflexes normal. Absent: CN II- XII intact, motor sensory deficit - Psychiatric Psychiatric exam: Present: anxious, flat affect - Skin Skin exam: Present: warm, dry, intact, normal color. Absent: diaphoresis, pallor Course Course Narrative: 2340: Care discussed with Dr. Ball who has given verbal orders for the patient' s admission. I have contacted to [facility] bed management for bed placement. Vital Signs Temperature 102.4 F H 07/05/16 21:35 Pulse Rate 106 07/05/16 21:35 Respiratory Rate 18 07/05/16 21:35 Blood Pressure 138/53 07/05/16 21:35 O2 Sat by Pulse Oximetry 88 L 07/05/16 21:35 Temperature 100.8 F H 07/05/16 23:15 Pulse Rate 108 07/05/16 23:15 Respiratory Rate 18 07/05/16 23:15 Blood Pressure 140/56 07/05/16 23:15 O2 Sat by Pulse Oximetry 90 L 07/05/16 23:15 Oxygen Delivery Oxygen Delivery Nasal Cannula Shortness of Breath/Dyspnea - Differential Diagnosis Likely: acute exacerbation of chronic obstructive airways disease, pneumonia - Medical Records Medical records reviewed: Yes I reviewed the patient's medical records. - Lab Data Lab results reviewed: Yes I reviewed the patient's lab results. Result diagrams: 07/05/16 21:50 07/05/16 21:50 Lab Results 07/05/16 07/05/16 07/05/16 Range/Units 21:50 21:50 21:50 WBC 21.0 H (4.3-11.1) K/mcL RBC 5.98 H (3.82-4.97) M/mcL Hgb 16.5 H (11.5-15.4) g/dL Hct 50.5 H (35.3-44.9) % MCV 84.4 (83.0-100.0) fL MCH 27.6 L (28.0-33.3) pg MCHC 32.7 (31.6-35.5) g/dL RDW 15.9 H (11.5-14.5) % Plt Count 184 (140-400) K/mcL MPV 11.2 (9.4-12.4) fL Immature Gran % 0.6 (0-4) % Seg Neutrophils % 89.0 % Lymphocytes % 3.6 % Monocytes % 6.1 % Eosinophils % 0.1 % Basophils % 0.6 % Neutrophils # 18.7 H (1.6-8.9) K/mcL Lymphocytes # 0.8 (0.6-4.6) K/mcL Monocytes # 1.3 (0.0-1.3) K/mcL Eosinophils # 0.0 (0.0-0.6) K/mcL Basophils # 0.1 (0.0-0.2) K/mcL PT 14.3 H (9.4-12.1) Seconds INR 1.3 APTT 41.5 H (26.0-36.0) Seconds ABG pH (7.32-7.45) pH Units ABG pCO2 (35-45) mmHg ABG pO2 (85-104) mmHg ABG HCO3 (21-27) mEQ/L ABG Total CO2 (20-26) mEq/L ABG O2 Saturation (95-98) % ABG Base Excess (-2.0 to 3.0) mEq/L VBG Lactic Acid (0.5-2.2) mmol/L Liter Flow L/MIN Blood Gas Modality Sodium 134 L (136-145) mEq/L Potassium 3.9 (3.5-4.5) mEq/L Chloride 91 L (98-109) mEq/L Carbon Dioxide 26 (19-29) mEq/L BUN 12 (7-20) mg/dL Creatinine 0.79 (0.57-1.11) mg/dL Est GFR ( Amer) > 60 (> 60) Est GFR (Non-Af Amer) > 60 (> 60) BUN/Creatinine Ratio 15 (6-26) Glucose 128 H (70-99) mg/dL Calculated Osmolality 279 L (280-300) Calcium 9.3 (8.6-10.8) mg/dL Total Bilirubin (0.2-1.2) mg/dL Direct Bilirubin (0.0-0.5) mg/dL Indirect Bilirubin (0.0-1.2) mg/dL AST (5-34) Units/L ALT (0-55) Units/L Alkaline Phosphatase (38-126) Units/L Troponin I (0-0.03) ng/mL B-Natriuretic Peptide (0-100) pg/mL Serum Total Protein (6.0-8.3) g/dL Albumin (3.5-5.0) g/dL Globulin (2.4-3.5) g/dL Albumin/Globulin Ratio (1.1-2.2) 07/05/16 07/05/16 07/05/16 Range/Units 21:50 21:50 21:50 WBC (4.3-11.1) K/mcL RBC (3.82-4.97) M/mcL Hgb (11.5-15.4) g/dL Hct (35.3-44.9) % MCV (83.0-100.0) fL MCH (28.0-33.3) pg MCHC (31.6-35.5) g/dL RDW (11.5-14.5) % Plt Count (140-400) K/mcL MPV (9.4-12.4) fL Immature Gran % (0-4) % Seg Neutrophils % % Lymphocytes % % Monocytes % % Eosinophils % % Basophils % % Neutrophils # (1.6-8.9) K/mcL Lymphocytes # (0.6-4.6) K/mcL Monocytes # (0.0-1.3) K/mcL Eosinophils # (0.0-0.6) K/mcL Basophils # (0.0-0.2) K/mcL PT (9.4-12.1) Seconds INR APTT (26.0-36.0) Seconds ABG pH (7.32-7.45) pH Units ABG pCO2 (35-45) mmHg ABG pO2 (85-104) mmHg ABG HCO3 (21-27) mEQ/L ABG Total CO2 (20-26) mEq/L ABG O2 Saturation (95-98) % ABG Base Excess (-2.0 to 3.0) mEq/L VBG Lactic Acid 2.4 H (0.5-2.2) mmol/L Liter Flow L/MIN Blood Gas Modality Sodium (136-145) mEq/L Potassium (3.5-4.5) mEq/L Chloride (98-109) mEq/L Carbon Dioxide (19-29) mEq/L BUN (7-20) mg/dL Creatinine (0.57-1.11) mg/dL Est GFR ( Amer) (> 60) Est GFR (Non-Af Amer) (> 60) BUN/Creatinine Ratio (6-26) Glucose (70-99) mg/dL Calculated Osmolality (280-300) Calcium (8.6-10.8) mg/dL Total Bilirubin (0.2-1.2) mg/dL Direct Bilirubin (0.0-0.5) mg/dL Indirect Bilirubin (0.0-1.2) mg/dL AST (5-34) Units/L ALT (0-55) Units/L Alkaline Phosphatase (38-126) Units/L Troponin I 0.01 (0-0.03) ng/mL B-Natriuretic Peptide 145 H (0-100) pg/mL Serum Total Protein (6.0-8.3) g/dL Albumin (3.5-5.0) g/dL Globulin (2.4-3.5) g/dL Albumin/Globulin Ratio (1.1-2.2) 07/05/16 07/05/16 Range/Units 21:50 22:00 WBC (4.3-11.1) K/mcL RBC (3.82-4.97) M/mcL Hgb (11.5-15.4) g/dL Hct (35.3-44.9) % MCV (83.0-100.0) fL MCH (28.0-33.3) pg MCHC (31.6-35.5) g/dL RDW (11.5-14.5) % Plt Count (140-400) K/mcL MPV (9.4-12.4) fL Immature Gran % (0-4) % Seg Neutrophils % % Lymphocytes % % Monocytes % % Eosinophils % % Basophils % % Neutrophils # (1.6-8.9) K/mcL Lymphocytes # (0.6-4.6) K/mcL Monocytes # (0.0-1.3) K/mcL Eosinophils # (0.0-0.6) K/mcL Basophils # (0.0-0.2) K/mcL PT (9.4-12.1) Seconds INR APTT (26.0-36.0) Seconds ABG pH 7.44 (7.32-7.45) pH Units ABG pCO2 47 H (35-45) mmHg ABG pO2 59 L (85-104) mmHg ABG HCO3 32.4 H (21-27) mEQ/L ABG Total CO2 33.8 H (20-26) mEq/L ABG O2 Saturation 91 L (95-98) % ABG Base Excess 6.7 H (-2.0 to 3.0) mEq/L VBG Lactic Acid (0.5-2.2) mmol/L Liter Flow 3.5 L/MIN Blood Gas Modality NC Sodium (136-145) mEq/L Potassium (3.5-4.5) mEq/L Chloride (98-109) mEq/L Carbon Dioxide (19-29) mEq/L BUN (7-20) mg/dL Creatinine (0.57-1.11) mg/dL Est GFR ( Amer) (> 60) Est GFR (Non-Af Amer) (> 60) BUN/Creatinine Ratio (6-26) Glucose (70-99) mg/dL Calculated Osmolality (280-300) Calcium (8.6-10.8) mg/dL Total Bilirubin 0.8 (0.2-1.2) mg/dL Direct Bilirubin 0.4 (0.0-0.5) mg/dL Indirect Bilirubin 0.4 (0.0-1.2) mg/dL AST 13 (5-34) Units/L ALT 9 (0-55) Units/L Alkaline Phosphatase 62 (38-126) Units/L Troponin I (0-0.03) ng/mL B-Natriuretic Peptide (0-100) pg/mL Serum Total Protein 7.6 (6.0-8.3) g/dL Albumin 3.6 (3.5-5.0) g/dL Globulin 4.0 H (2.4-3.5) g/dL Albumin/Globulin Ratio 0.9 L (1.1-2.2) - Radiology Data Radiology results reviewed: Yes I reviewed the patient's radiology results. Single view chest x-ray is performed. This demonstrates a right lower lobe/ middle lobe infiltrate. She does have some cardiomegaly. I do not see evidence for acute heart failure, effusion or pneumothorax. Clips are evident in the right axilla from previous surgery. This is on my interpretation. Impressions Chest X-Ray 07/05/16 21:36 IMPRESSION: 1. Findings compatible with mild pulmonary edema with patchy consolidative changes resulting in silhouetting of the right heart border concerning for superimposed consolidation and possible pneumonia within the right middle lobe. D/ / Bernabe Hedrick MD / Bernabe Hedrick MD Interpreting Provider: Bernabe Hedrick MD - EKG Data EKG attestation: Yes I reviewed and interpreted this EKG. EKG shows normal: Reports: sinus rhythm, intervals, ST-T waves Rate: Reports: tachycardia (109) [place]/QRS: Reports: left axis deviation, LBBB P waves: Reports: LAE Interpretation: Reports: no acute changes, other (Bundle branch block)
[2016-07-05 22:08] LABS: Basophils # 0.1 K/mcL (0.0-0.2); Basophils % 0.6 %; Eosinophils % 0.1 %; Hematocrit 50.5 % (35.3-44.9); Hemoglobin 16.5 g/dL (11.5-15.4); Immature Granulocytes % 0.6 % (0-4); Lymphocytes # 0.8 K/mcL (0.6-4.6); Lymphocytes % 3.6 %; Mean Corpuscular HGB Conc 32.7 g/dL (31.6-35.5); Mean Corpuscular Hemoglobin 27.6 pg (28.0-33.3); Mean Corpuscular Volume 84.4 fL (83.0-100.0); Mean Platelet Volume 11.2 fL (9.4-12.4); Monocytes # 1.3 K/mcL (0.0-1.3); Monocytes % 6.1 %; Neutrophils # 18.7 K/mcL (1.6-8.9); Platelet Count 184 K/mcL (140-400); Red Blood Count 5.98 M/mcL (3.82-4.97); Red Cell Distribution Width 15.9 % (11.5-14.5)
[2016-07-05 22:11] LABS: INR 1.3; Prothrombin Time 14.3 Seconds (9.4-12.1)
[2016-07-05 22:14] LABS: Activated Partial Thrombo Time 41.5 Seconds (26.0-36.0)
[2016-07-05 22:15] LABS: ABG PCO2 47 mmHg (35-45); ABG PH 7.44 pH Units (7.32-7.45); ABG PO2 59 mmHg (85-104)
[2016-07-05 22:16] LABS: ABG Base Excess 6.7 mEq/L (-2.0 to 3.0); ABG HCO3 32.4 mEQ/L (21-27); ABG Oxygen Saturation 91 % (95-98); ABG TCO2 33.8 mEq/L (20-26); Blood Gas Liter Flow 3.5 L/MIN
[2016-07-05 22:19] LABS: BUN/Creatinine Ratio 15 (6-26); Blood Urea Nitrogen 12 mg/dL (7-20); Calcium 9.3 mg/dL (8.6-10.8); Carbon Dioxide 26 mEq/L (19-29); Chloride 91 mEq/L (98-109); Glucose 128 mg/dL (70-99); Osmolality,Calculated 279 (280-300); Potassium 3.9 mEq/L (3.5-4.5); Sodium 134 mEq/L (136-145); eGFR For African Americans > 60 (> 60); eGFR For Non-African Americans > 60 (> 60)
[2016-07-05 22:21] LABS: Albumin 3.6 g/dL (3.5-5.0); Albumin/Globulin Ratio 0.9 (1.1-2.2); Bilirubin,Direct 0.4 mg/dL (0.0-0.5); Bilirubin,Indirect 0.4 mg/dL (0.0-1.2); Bilirubin,Total 0.8 mg/dL (0.2-1.2); Total Protein 7.6 g/dL (6.0-8.3)
[2016-07-05] MEDS ORDERED: Acetaminophen 325 MG TABLET PO ONE (22:41)
[2016-07-06] MEDS ORDERED: Acetaminophen 325 MG TABLET PO PRN (00:34)
[2016-07-06] MEDS ORDERED: D5% in Water 1,000 ML IV PRN (00:34)
[2016-07-06] MEDS ORDERED: 0.9 % Sodium Chloride 1,000 ML IVC SCH (00:34)
[2016-07-06] MEDS ORDERED: Albuterol 2.5 MG/3 ML NEBULIZER IH PRN (00:34)
[2016-07-06] MEDS ORDERED: Naloxone 0.4 MG/ML INJ IVP PRN (00:34)
[2016-07-06] MEDS ORDERED: Dextrose Gel 15 GM PO PRN ×2 (00:34)
[2016-07-06] MEDS ORDERED: Ondansetron 4 MG/2 ML VIAL IVP PRN (00:34)
[2016-07-06] MEDS ORDERED: *HR* Dextrose 50 % in Water (Syg) 50 ML SYRINGE IVP PRN (00:34)
[2016-07-06] MEDS ORDERED: MOM Conc 10 ML UD.LIQ PO PRN (00:34)
[2016-07-06] MEDS: Ipratropium/Albuterol Neb 3 ML IH SCH ×2 (05:25→10:09)
[2016-07-06] MEDS: *HR* OxyCODONE/APAP 10/325 TABLET PO SCH ×4 (05:31→23:36)
[2016-07-06] MEDS: Insulin LISPRO 300 UNITS/3 ML VIAL SQ SCH ×3 (07:52→16:15)
[2016-07-06] MEDS ORDERED: PredniSONE 20 MG TABLET PO SCH (08:00)
[2016-07-06] MEDS: Levofloxacin 750 MG/150 ML 750 MG/150 ML BAG IVPB SCH (08:23)
[2016-07-06] MEDS ORDERED: Loratadine 10 MG TABLET PO SCH (10:30)
[2016-07-06] MEDS: (Saxagliptin Hcl [Onglyza] 5 MG) PO SCH (11:36)
--- NOTE | 2016-07-06 11:50 | Electrocardiograph Report ---
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
[2016-07-06] MEDS: Bumetanide 1 MG TABLET PO SCH (11:53)
[2016-07-06] MEDS: *HR* Glimepiride 2 MG TABLET PO SCH (11:53)
[2016-07-06] MEDS: Verapamil ER (24 HR) 180 MG TABLET.ER PO SCH (11:53)
[2016-07-06] MEDS: Aspirin Enteric Coated 81 MG Tablet PO SCH (11:53)
--- NOTE | 2016-07-06 11:54 | Internal Med History&Physical ---
Date of Encounter: 07/06/16 Time of Encounter: 11:30 Assessment and Plan (1) Pneumonia Current visit: Yes Status: Acute She has been started on Levaquin. I will add lactobacillus. A chest CT will be ordered to follow up on abnormalities seen on March [address] Further workup be done as needed. I encouraged her to discontinue smoking. Qualifiers: Pneumonia type: due to unspecified organism Laterality: right Lung location: lower lobe of lung Qualified Code(s): J18.1 - Lobar pneumonia, unspecified organism (2) Hypertension Current visit: No Status: Chronic Continue Cozaar, verapamil, Zaroxolyn and Lopressor. Qualifiers: Hypertension type: essential hypertension Qualified Code(s): I10 - Essential (primary) hypertension (3) DM type 2 (diabetes mellitus, type 2) Current visit: Yes Status: Chronic Continue Amaryl and Onglyza. Do Accu-Cheks with SSI. Qualifiers: Diabetes mellitus complication status: without complication Diabetes mellitus terminal worker insulin use: without terminal worker use Qualified Code(s): E11.9 - Type 2 diabetes mellitus without complications Internal Medicine - H&P: HPI Chief complaint: Cough and chills Admitted From: Home Plans for Post Hospital Care: Home History of present illness: Ms. Ocampo is a 61 year old female who came to emergency room after family noted her to be confused and lethargic. She stated she had had chills and minimally productive cough earlier in the day with onset of "feeling bad" on July 03. She was evaluated in emergency room and found to have right lung pneumonia. She was admitted to [facility] floor for ongoing care needs. Her respiratory history is significant for having smoked since age 5 up to 3 packs per day. She has a diagnosis of COPD with PFTs done several years ago. She wears oxygen at bedtime and when necessary during the daytime. Past Med Surg Social Fam HX - Past Medical History Medical history: arthritis, cancer, COPD, CVA, diabetes, GERD, hypertension, migraine, osteoporosis, other Psychiatric history: anxiety, depression - Past Surgical History Surgical History: appendectomy, breast surgery, , cancer surgery, hysterectomy, knee replacement, other - Social History Smoking Status: Current every day smoker Packs per day: 1 Smokeless Tobacco Status: No Alcohol use: none Drug use: none - Family History Father Hx Family Cardiac Disorders: Yes (MT) Hx Family Endocrine Disorder: Yes Internal Medicine - H&P: Meds Aspirin [Lo-Dose Aspirin EC] 81 mg PO DAILY 01/18/16 [History] Calcium Carbonate [Calcium] 600 mg PO DAILY 01/18/16 [History] Losartan [Cozaar] 25 mg PO DAILY 01/18/16 [History] Methocarbamol [Robaxin-750] 750 mg PO TID 01/18/16 [History] OxyCODONE/APAP 10/325 [Percocet 10/325 MG] 1 each PO Q6HR PRN 01/18/16 [History] Saxagliptin HCl [Onglyza] 5 mg PO DAILY 01/18/16 [History] Sertraline [Zoloft] 25 mg PO DAILY 01/18/16 [History] Tiotropium [Spiriva] 18 mcg IH DAILY 01/18/16 [History] Metoprolol [Lopressor] 50 mg PO BID #60 tablet 01/20/16 [Rx] Verapamil ER (24 HR) [Calan SR] 180 mg PO DAILY #30 tablet.er 01/20/16 [Rx] Bumetanide [Bumex] 1 mg PO DAILY #30 tablet 02/15/16 [Rx] Potassium Chloride [Klor-Con Sprinkle] 20 meq PO BID #120 02/15/16 [Rx] Albuterol Sulfate [Albuterol Inhaler] 2 puff IH Q4HR PRN #0 03/31/16 [Rx] Ferrous Sulfate 325 mg PO 0630 #30 tablet 03/31/16 [Rx] Cetirizine HCl [All Day Allergy] 10 mg PO QDPC 07/06/16 [History] Gabapentin [Neurontin] 300 mg PO TID 07/06/16 [History] Glimepiride [Amaryl] 4 mg PO QDPC 07/06/16 [History] Hydroxyzine HCl 25 mg PO TID 07/06/16 [History] Methotrexate [Otrexup] 2.5 mg PO QWEEK 07/06/16 [History] Metolazone [Zaroxolyn] 2.5 mg PO DAILY 07/06/16 [History] Pantoprazole Sodium 40 mg PO QDPC 07/06/16 [History] Allergies lisinopril Adverse Reaction (Verified 12/18/15 15:01) Cough morphine Adverse Reaction (Verified 12/18/15 15:01) Nausea Penicillins Adverse Reaction (Verified 12/18/15 15:01) Nausea ranitidine [From Zantac] Adverse Reaction (Verified 12/18/15 15:01) Diarrhea All Systems PM: A 10-system review of systems was performed and is negative for pertinent findings except as documented above in the HPI. Review of systems: Review of systems from her [facility] hospitalization earlier this month were reviewed and revised as below. General: Her weight has been stable at 112 kg since March 2016 [facility] swing bed stay. Cardiovascular: She has history of hypertension. She denies MT DVT or pulmonary embolus. She had an echocardiogram done 12/22/2015 which was technically challenging with suboptimal windows. LV systolic function appeared grossly normal and there were no significant valvular abnormalities seen. She had a Regadenoson nuclear test 12/22/2015 which showed no evidence of ischemia or infarct. Respiratory: As per history of present illness GI: She has had cholecystectomy. She denies disorders of her liver or exocrine pancreas : she denies hematuria or dysuria or kidney stones Neurologic: She denies large distribution strokes or seizures Endocrine: She was diagnosed with DM 2 approximately 2004. She has hyperlipidemia and denies thyroid disease Hematology/oncology: She had right mastectomy 2005 for breast cancer. This was apparently curative and she denies chemotherapy or XRT post surgery. She had thrombocytopenia in the past which has resolved. She denies other blood disorders or internal malignancies Psychiatric: She has depression but no significant anxiety or other mental health issues Musk skeletal: She has history of gout, DJD, spinal stenosis, and osteoporosis with lumbar compression fractures. - Constitutional Vitals: Temp Pulse Resp BP Pulse Ox 97.4 F L 92 18 128/77 94 L 07/06/16 10:56 07/06/16 10:56 07/06/16 10:56 07/06/16 10:56 07/06/16 10:56 Exam: Gen.: She is a well-developed obese female who appears in minimal distress at present time. She complains of some pain in her back HEENT: Head is atraumatic and normocephalic. Eyes: EOMI. There is no scleral icterus. Mouth: Mucosa is moist. Neck: Supple and nontender. There is no thyromegaly or nodes noted. Heart: Regular without murmurs gallops or ectopics. Rate is 90/m Lungs: No wheezes or crackles are heard. She has egophony in the right mid and lower lung holliday posteriorly Abdomen: She has a large abdomen. Exam is limited because she is in a seated position. Extremities: Both lower legs and feet are wrapped with gauze covered with Coban. I did not unwrap these. She has some dependent rubor of the visualized portion of her toes. She has minimal DJD changes of her hands. Neurologic: Mental status: She is talkative and a good historian. Cranial nerves: Smile is symmetric. Forehead wrinkles bilaterally. Tongue protrudes midline. EOMI. Motor: There is no pronator drift. Cerebellar: Finger to nose is intact bilaterally. Skin: Warm and dry Internal Med - H&P Results - Labs CBC & Chem 7: 07/05/16 21:50 07/05/16 21:50 - VTE Documentation of Mechanical Device: Graduated compression elastic hosiery
[2016-07-06] MEDS: Gabapentin 300 MG CAPSULE PO SCH ×3 (14:05→21:21)
[2016-07-06] MEDS: Methocarbamol 500 MG TABLET PO SCH ×2 (14:12→21:20)
[2016-07-07] MEDS: *HR* OxyCODONE/APAP 10/325 TABLET PO SCH ×2 (06:19→11:27)
[2016-07-07 07:19] VITALS: BP 105/49
[2016-07-07 07:36] LABS: Basophils % 0.3 %; Eosinophils # 0.1 K/mcL (0.0-0.6); Eosinophils % 0.4 %; Hemoglobin 14.4 g/dL (11.5-15.4); Immature Granulocytes % 0.5 % (0-4); Lymphocytes # 2.1 K/mcL (0.6-4.6); Lymphocytes % 14.6 %; Mean Corpuscular Hemoglobin 27.4 pg (28.0-33.3); Mean Corpuscular Volume 85.7 fL (83.0-100.0); Mean Platelet Volume 11.8 fL (9.4-12.4); Monocytes # 1.1 K/mcL (0.0-1.3); Monocytes % 7.8 %; Neutrophils # 11.1 K/mcL (1.6-8.9); Platelet Count 136 K/mcL (140-400); Red Blood Count 5.25 M/mcL (3.82-4.97); Red Cell Distribution Width 15.6 % (11.5-14.5); Segmented Neutrophils % 76.4 %
[2016-07-07] MEDS: Insulin LISPRO 300 UNITS/3 ML VIAL SQ SCH (07:50)
[2016-07-07] MEDS ORDERED: NON-FORMULARY MEDICATION 1 EACH EACH (Pantoprazole Sodium [Pantoprazole Sodium] 40 MG) PO SCH (09:00)
[2016-07-07] MEDS: Methocarbamol 500 MG TABLET PO SCH (09:34)
[2016-07-07] MEDS: Aspirin Enteric Coated 81 MG Tablet PO SCH (09:34)
[2016-07-07] MEDS: Bumetanide 1 MG TABLET PO SCH (09:34)
[2016-07-07] MEDS: *HR* Glimepiride 2 MG TABLET PO SCH (09:35)
[2016-07-07] MEDS: Gabapentin 300 MG CAPSULE PO SCH (09:36)
[2016-07-07] MEDS: Levofloxacin 750 MG/150 ML 750 MG/150 ML BAG IVPB SCH (09:39)
--- NOTE | 2016-07-07 09:54 | Discharge Summary ---
Date of Encounter: 07/07/16 Time of Encounter: 09:35 - Discharge Diagnosis (1) Pneumonia Priority: Primary Status: Acute Qualifiers: Pneumonia type: due to unspecified organism Laterality: right Lung location: lower lobe of lung Qualified Code(s): J18.1 - Lobar pneumonia, unspecified organism (2) Hypertension Priority: Secondary Status: Chronic Qualifiers: Hypertension type: essential hypertension Qualified Code(s): I10 - Essential (primary) hypertension (3) DM type 2 (diabetes mellitus, type 2) Priority: Secondary Status: Chronic Qualifiers: Diabetes mellitus complication status: without complication Diabetes mellitus longterm insulin use: without longterm use Qualified Code(s): E11.9 - Type 2 diabetes mellitus without complications - Discharge Medications Prescriptions: Lactobacillus [Culturelle] 1 each PO BID #10 cap.sprink Levofloxacin [Levaquin] 750 mg PO DAILY #5 tablet Home Medications: Aspirin [Lo-Dose Aspirin EC] 81 mg PO DAILY 01/18/16 [History] Calcium Carbonate [Calcium] 600 mg PO DAILY 01/18/16 [History] Losartan [Cozaar] 25 mg PO DAILY 01/18/16 [History] Methocarbamol [Robaxin-750] 750 mg PO TID 01/18/16 [History] OxyCODONE/APAP 10/325 [Percocet 10/325 MG] 1 each PO Q6HR PRN 01/18/16 [History] Saxagliptin HCl [Onglyza] 5 mg PO DAILY 01/18/16 [History] Sertraline [Zoloft] 25 mg PO DAILY 01/18/16 [History] Tiotropium [Spiriva] 18 mcg IH DAILY 01/18/16 [History] Metoprolol [Lopressor] 50 mg PO BID #60 tablet 01/20/16 [Rx] Verapamil ER (24 HR) [Calan SR] 180 mg PO DAILY #30 tablet.er 01/20/16 [Rx] Bumetanide [Bumex] 1 mg PO DAILY #30 tablet 02/15/16 [Rx] Potassium Chloride [Klor-Con Sprinkle] 20 meq PO BID #120 02/15/16 [Rx] Albuterol Sulfate [Albuterol Inhaler] 2 puff IH Q4HR PRN #0 03/31/16 [Rx] Gabapentin [Neurontin] 300 mg PO TID 07/06/16 [History] Glimepiride [Amaryl] 4 mg PO QDPC 07/06/16 [History] Hydroxyzine HCl 25 mg PO TID 07/06/16 [History] Methotrexate [Otrexup] 2.5 mg PO QWEEK 07/06/16 [History] Metolazone [Zaroxolyn] 2.5 mg PO DAILY 07/06/16 [History] Pantoprazole Sodium 40 mg PO QDPC 07/06/16 [History] Cetirizine HCl [All Day Allergy] 10 mg PO QDPC PRN #0 07/07/16 [Rx] Lactobacillus [Culturelle] 1 each PO BID #10 cap.sprink 07/07/16 [Rx] Levofloxacin [Levaquin] 750 mg PO DAILY #5 tablet 07/07/16 [Rx] Allergies/Adverse Reactions: Allergies lisinopril Adverse Reaction (Verified 12/18/15 15:01) Cough morphine Adverse Reaction (Verified 12/18/15 15:01) Nausea Penicillins Adverse Reaction (Verified 12/18/15 15:01) Nausea ranitidine [From Zantac] Adverse Reaction (Verified 12/18/15 15:01) Diarrhea Procedures/tests Complete & Pending: Procedures Performed prior 72 hours Category Date Time Status CT chest wo con [CT] Routine Cat Scan 07/06/16 12:33 Completed Date of admission: 07/06/16 00:04 Primary care physician: Maria Luz Bonner CNP - Patient Status Disposition: Home, Self-Care Condition: Good Overall status at discharge: patient is progressing back to baseline - Discharge Instructions Follow Up With: Maria Luz Bonner CNP [Primary Care Provider] - 1 week - Diet and Activity Activity: resume usual activities as tolerated Diet: diabetic diet Hospital course: Ms. Ocampo is a 61 year old female who came to emergency room after family noted her to be confused and lethargic. She stated she had had chills and minimally productive cough earlier in the day with onset of "feeling bad" on July 03. She was evaluated in emergency room and found to have right lung pneumonia. She was admitted to [facility] floor for ongoing care needs. Initial orders were written by the emergency room physician. I saw her on July 06 and performed the history and physical. She was started on IV Levaquin through emergency room. I added lactobacillus. A chest CT was ordered to follow-up on abnormalities seen on the March [address] There was significant improvement in the right pleural effusion. There was right middle lobe and left lower lobe infiltrate suspicious for pneumonia. There was obstruction of the right middle lobe bronchus. Obstructive neoplastic process cannot be excluded. Recommendation was made to consider evaluation by pulmonology with possible bronchoscopy. I will let Maria Luz Bonner CNP discuss this further with the patient. I told the patient alternative plan would be to reevaluate in 3-[address] scan to see if there was clearing of the right middle lobe bronchus. I encouraged her strongly to discontinue smoking. She continued with Amaryl and Onglyza and had Accu-Cheks with SSI. A hemoglobin A1c is pending at the time of this dictation. When I saw her on July 07 she felt significantly improved and wished to be discharged home. Her WBC had decreased to 14.5 K with significant improvement in the left shift on the differential on July 07. I felt she was stable for discharge home. She will have a 6 minute walk prior to discharge to see if she qualifies for home oxygen. She will follow with any [facility] within 1 week. - Time Spent with Patient Total time spent providing and/or coordinating discharge services: - Constitutional Vitals: Temp Pulse Resp BP Pulse Ox 97.6 F 66 16 105/49 94 L 07/07/16 07:18 07/07/16 07:18 07/07/16 07:18 07/07/16 07:18 07/07/16 07:18 - VTE Documentation of Mechanical Device: Graduated compression elastic hosiery
[2016-07-07] MEDS: (Saxagliptin Hcl [Onglyza] 5 MG) PO SCH (09:56)
[2016-07-07] MEDS: Verapamil ER (24 HR) 180 MG TABLET.ER PO SCH (09:56)
--- NOTE | 2016-07-07 12:35 | Physician Discharge Referral ---
Home Health/Hosp Referral Info Transfer to: Home Health Attending Provider: Quinn Provider in Charge Post Discharge: PCP (Maria Luz Bonner CNP) - Diagnosis (1) Pneumonia Priority: Primary Status: Acute (2) Hypertension Priority: Secondary Status: Chronic (3) DM type 2 (diabetes mellitus, type 2) Priority: Secondary Status: Chronic - Respiratory Orders Oxygen / L per min (2 L/m by nasal cannula 02/01) Smoking Cessation: Smoking cessation has been advised. For more information, call the [place] Tobacco Quit Line at 3-586-SNGB-NOW. - Diet/Nutrition Diet/Nutrition Orders: No Concentrated Sweets - Activity Activity Orders: Ambulate - Services Needed Following services are medically necessary services: Nursing, Home Health Aide, Physical Therapy, Occupational Therapy - Transfer Medications Prescriptions: Lactobacillus [Culturelle] 1 each PO BID #10 cap.sprink Levofloxacin [Levaquin] 750 mg PO DAILY #5 tablet Home Medications: Aspirin [Lo-Dose Aspirin EC] 81 mg PO DAILY 01/18/16 [History] Calcium Carbonate [Calcium] 600 mg PO DAILY 01/18/16 [History] Losartan [Cozaar] 25 mg PO DAILY 01/18/16 [History] Methocarbamol [Robaxin-750] 750 mg PO TID 01/18/16 [History] OxyCODONE/APAP 10/325 [Percocet 10/325 MG] 1 each PO Q6HR PRN 01/18/16 [History] Saxagliptin HCl [Onglyza] 5 mg PO DAILY 01/18/16 [History] Sertraline [Zoloft] 25 mg PO DAILY 01/18/16 [History] Tiotropium [Spiriva] 18 mcg IH DAILY 01/18/16 [History] Metoprolol [Lopressor] 50 mg PO BID #60 tablet 01/20/16 [Rx] Verapamil ER (24 HR) [Calan SR] 180 mg PO DAILY #30 tablet.er 01/20/16 [Rx] Bumetanide [Bumex] 1 mg PO DAILY #30 tablet 02/15/16 [Rx] Potassium Chloride [Klor-Con Sprinkle] 20 meq PO BID #120 02/15/16 [Rx] Albuterol Sulfate [Albuterol Inhaler] 2 puff IH Q4HR PRN #0 03/31/16 [Rx] Gabapentin [Neurontin] 300 mg PO TID 01/25/17 [History] Glimepiride [Amaryl] 4 mg PO QDPC 07/06/16 [History] Hydroxyzine HCl 25 mg PO TID 07/06/16 [History] Methotrexate [Otrexup] 2.5 mg PO QWEEK 07/06/16 [History] Metolazone [Zaroxolyn] 2.5 mg PO DAILY 07/06/16 [History] Pantoprazole Sodium 40 mg PO QDPC 07/06/16 [History] Cetirizine HCl [All Day Allergy] 10 mg PO QDPC PRN #0 07/07/16 [Rx] Lactobacillus [Culturelle] 1 each PO BID #10 cap.sprink 07/07/16 [Rx] Levofloxacin [Levaquin] 750 mg PO DAILY #5 tablet 07/07/16 [Rx] Allergies/Adverse Reactions: Allergies lisinopril Adverse Reaction (Verified 12/18/15 15:01) Cough morphine Adverse Reaction (Verified 12/18/15 15:01) Nausea Penicillins Adverse Reaction (Verified 12/18/15 15:01) Nausea ranitidine [From Zantac] Adverse Reaction (Verified 12/18/15 15:01) Diarrhea Certification: Further, I certify that my clinical findings support that this patient is homebound (i.e. absences from home require considerable and taxing effort and are for medical reasons or [facility] services or infrequently or short duration when for other reasons) because: Homebound Reason: Leaving home requires considerable and taxing effort due to condition (COPD with hypoxemia, deconditioning) Attestation: My signature below is to certify that this patient is under my care and that I, or nurse practitioner, or a physician's food and nutrition services assistant working with me, has a face-to -face encounter with this patient.
[2016-07-07 16:17] LABS: Hemoglobin A1C 5.7 %
== END 2016-07-07 15:26 | disposition home or self-care (01) | DRG 190 ==
LOC: EMEROOPIK 21:31 → INPPIK 07-06 00:04
PROVIDERS: ADMIT Internal Medicine; ATTEND Internal Medicine

== ENCOUNTER 2016-07-22 12:30 | Observation (INO) ==
[2016-07-22] MEDS ORDERED: Ipratropium/Albuterol Neb 3 ML IH ONE (12:31)
--- NOTE | 2016-07-22 12:35 | Emergency Department Note ---
Disposition Clinical Impression: Acute exacerbation of chronic obstructive airways disease Disposition: Admitted As Inpatient Condition: Fair Referrals: Maria Luz Bonner, VIKI [Primary Care Provider] - Forms: ED Satisfaction Letter SOB HPI - General Chief Complaint: ED Shortness of Breath/Dyspnea Stated Complaint: shortness of breath Time Seen by Provider: 07/22/16 12:31 Source: patient, EMS Mode of arrival: EMS Limitations: no limitations Nursing Notes Reviewed: Yes Vital Signs Reviewed: Yes - History of Present Illness Patient reports increased dyspnea with cough. She states she has had significant dyspnea on exertion and weakness. She denies any chest pain or palpitations. She relates she has been on her normal home oxygen 2 L nasal cannula. She has been on her normal medications and inhalers. She denies nausea or diaphoresis, abdominal pain. She has some chronic lower extremity swelling for which she has compressive wraps to the knees. She denies any other recent change in medications. She states her has a "cold". She denies headache, sore throat or rashes. She states she just feels very fatigued and bad. A squad was called for her transport. They reported that one aerosol was administered and she reported significant decrease in her shortness of breath. The patient was admitted for a couple days July 05 for COPD exacerbation with a right middle lobe infiltrate. Pt Subjective Complaint: shortness of breath Onset (ago): day(s) Context: recent illness Severity: moderate Consistency/Duration: intermittent, gradually worsening Improves with: oxygen, bronchodilators Worsens with: exertion, coughing Known history of: COPD Associated symptoms: Reports: cough, wheezing. Denies: chest pain, pain with inspiration, fever, sputum production, orthopnea, lower extremity pain, polyuria , polydipsia, parasthesias, palpitations, hemoptysis, diaphoresis, nausea/ vomiting, syncope, abdominal pain, rash Treatment prior to arrival: oxygen, bronchodilator Cough present: Yes Cough Description: Voluntary, Non-Productive, Hacking Cough Frequency: Intermittent Sputum production: No - Related Data Home oxygen amount: 2 liters Home Medications Medication Instructions Recorded Confirmed Aspirin [Lo-Dose Aspirin EC] 81 mg PO DAILY 01/18/16 07/22/16 Calcium Carbonate [Calcium] 600 mg PO DAILY 01/18/16 07/22/16 Losartan [Cozaar] 25 mg PO DAILY 01/18/16 07/22/16 Methocarbamol [Robaxin-750] 750 mg PO TID 01/18/16 07/22/16 OxyCODONE/APAP 10/325 [Percocet 1 each PO Q6HR PRN 01/18/16 07/22/16 10/325 MG] Saxagliptin HCl [Onglyza] 5 mg PO DAILY 01/18/16 07/22/16 Sertraline [Zoloft] 25 mg PO DAILY 01/18/16 07/22/16 Tiotropium [Spiriva] 18 mcg IH DAILY 01/18/16 07/22/16 Gabapentin [Neurontin] 300 mg PO TID 07/06/16 07/22/16 Glimepiride [Amaryl] 4 mg PO QDPC 07/06/16 07/22/16 Hydroxyzine HCl 25 mg PO TID 07/06/16 07/22/16 Methotrexate [Otrexup] 2.5 mg PO QWEEK 07/06/16 07/22/16 Metolazone [Zaroxolyn] 2.5 mg PO DAILY 07/06/16 07/22/16 Pantoprazole Sodium 40 mg PO QDPC 07/06/16 07/22/16 Previous Rx's Medication Instructions Recorded Metoprolol [Lopressor] 50 mg PO BID #60 tablet 01/20/16 Verapamil ER (24 HR) [Calan SR] 180 mg PO DAILY #30 tablet.er 01/20/16 Bumetanide [Bumex] 1 mg PO DAILY #30 tablet 02/15/16 Potassium Chloride [Klor-Con 20 meq PO BID #120 02/15/16 Sprinkle] Albuterol Sulfate [Albuterol 2 puff IH Q4HR PRN #0 03/31/16 Inhaler] Cetirizine HCl [All Day Allergy] 10 mg PO QDPC PRN #0 07/07/16 Lactobacillus [Culturelle] 1 each PO BID #10 cap.sprink 07/07/16 Allergies Allergy/AdvReac Type Severity Reaction Status Date / Time lisinopril AdvReac Cough Verified 12/18/15 15:01 morphine AdvReac Nausea Verified 12/18/15 15:01 Penicillins AdvReac Nausea Verified 12/18/15 15:01 ranitidine [From Zantac] AdvReac Diarrhea Verified 12/18/15 15:01 All systems ED: reviewed and negative except as stated. Past Medical History - Past Medical History Attestation: Yes The following information was validated with the patient. Source: patient, old records reviewed, nursing notes reviewed Medical history: Reports: arthritis, cancer, COPD, CVA, diabetes, GERD, hypertension, migraine, osteoporosis, other Surgical history: Reports: appendectomy, breast surgery, , cancer surgery, hysterectomy, knee replacement, other Psychiatric history: Reports: anxiety, depression MIXER RUNNER history: Reports: no MIXER RUNNER history - Social History Smoking Status: Current every day smoker Smokeless Tobacco Status: No Alcohol use: Reports: none Drug use: Reports: none Physical Exam - General Limitations: no limitations General appearance: alert, in no apparent distress - Head Head exam: atraumatic, normocephalic, normal inspection - Eye Eye exam: Present: normal appearance, PERRL, EOMI. Absent: scleral icterus, conjunctival injection - ENT ENT exam: normal exam, normal oropharynx, mucous membranes moist - Neck Neck exam: Present: normal inspection, full ROM, trachea midline - Chest Chest inspection: Present: normal inspection, symmetric chest wall rise. Absent : tenderness - Respiratory Respiratory exam: Present: prolonged expiratory phase. Absent: respiratory distress, wheezes, accessory muscle use - Cardiovascular Cardiovascular exam: Present: regular rate, normal rhythm, normal heart sounds. Absent: tachycardia, JVD - Abdominal Exam Abdominal exam: Present: soft, Non-Tender, normal bowel sounds. Absent: tenderness, distention, guarding, rebound, rigidity - Extremities Exam Extremities exam: Present: normal inspection, full ROM, normal capillary refill , pedal edema (Patient has compressive wraps on both lower extremities.). Absent: tenderness, calf tenderness - Expanded Lower Extremity Exam Neurovascular/Tendon exam: Present: normal capillary refill. Absent: motor deficit, sensory deficit, tendon deficit Gait: not tested/not observed - Back Exam Back exam: Present: normal inspection, full ROM. Absent: tenderness, CVA tenderness (R), CVA tenderness (L) - Neurological Exam Neurological exam: Present: alert, oriented X3 - Psychiatric Psychiatric exam: Present: normal affect, normal mood. Absent: agitated, anxious - Skin Skin exam: Present: warm, dry, intact, normal color. Absent: cyanosis, diaphoresis, pallor Course Course Narrative: 1355: The patient is resting comfortably and we are awaiting return of her troponin. Due to lab issues this has been sent to [facility] to be analyzed. 1415: Patient remains dyspneic and will drop her saturations 80% at rest. Dr. Ball has been contacted to discuss the observation of this patient to the floor. 1420: The patient has been accepted by Dr. Ball. Verbal orders have been obtained for her observation. Vital Signs O2 Sat by Pulse Oximetry 93 L 07/22/16 12:31 Temperature 98.0 F 07/22/16 14:04 Pulse Rate 98 07/22/16 14:04 Respiratory Rate 18 07/22/16 14:04 Blood Pressure 130/53 07/22/16 14:04 O2 Sat by Pulse Oximetry 92 L 07/22/16 14:04 Oxygen Delivery Oxygen Delivery Nasal Cannula Shortness of Breath/Dyspnea - Differential Diagnosis Likely: acute exacerbation of chronic obstructive airways disease, pneumonia, asthma with exacerbation - Medical Records Medical records reviewed: Yes I reviewed the patient's medical records. - Lab Data Lab results reviewed: Yes I reviewed the patient's lab results. Result diagrams: 07/22/16 12:56 07/22/16 12:56 Lab Results 07/22/16 07/22/16 07/22/16 Range/Units 12:56 12:56 12:56 WBC 5.4 (4.3-11.1) K/mcL RBC 5.75 H (3.82-4.97) M/mcL Hgb 15.5 H (11.5-15.4) g/dL Hct 47.4 H (35.3-44.9) % MCV 82.4 L (83.0-100.0) fL MCH 27.0 L (28.0-33.3) pg MCHC 32.7 (31.6-35.5) g/dL RDW 14.4 (11.5-14.5) % Plt Count 166 (140-400) K/mcL MPV 10.9 (9.4-12.4) fL Immature Gran % 0.9 (0-4) % Seg Neutrophils % 71.2 % Lymphocytes % 13.8 % Monocytes % 13.7 % Eosinophils % 0.0 % Basophils % 0.4 % Neutrophils # 3.9 (1.6-8.9) K/mcL Lymphocytes # 0.8 (0.6-4.6) K/mcL Monocytes # 0.7 (0.0-1.3) K/mcL Eosinophils # 0.0 (0.0-0.6) K/mcL Basophils # 0.0 (0.0-0.2) K/mcL PT (9.4-12.1) Seconds INR APTT (26.0-36.0) Seconds Sodium 127 L (136-145) mEq/L Potassium 3.3 L (3.5-4.5) mEq/L Chloride 83 L (98-109) mEq/L Carbon Dioxide 32 H (19-29) mEq/L BUN 6 L (7-20) mg/dL Creatinine 0.57 (0.57-1.11) mg/dL Est GFR ( Amer) > 60 (> 60) Est GFR (Non-Af Amer) > 60 (> 60) BUN/Creatinine Ratio 11 (6-26) Glucose 99 (70-99) mg/dL Calculated Osmolality 262 L (280-300) Calcium 8.5 L (8.6-10.8) mg/dL Troponin I 0.01 (0-0.03) ng/mL B-Natriuretic Peptide (0-100) pg/mL 07/22/16 07/22/16 Range/Units 12:56 12:56 WBC (4.3-11.1) K/mcL RBC (3.82-4.97) M/mcL Hgb (11.5-15.4) g/dL Hct (35.3-44.9) % MCV (83.0-100.0) fL MCH (28.0-33.3) pg MCHC (31.6-35.5) g/dL RDW (11.5-14.5) % Plt Count (140-400) K/mcL MPV (9.4-12.4) fL Immature Gran % (0-4) % Seg Neutrophils % % Lymphocytes % % Monocytes % % Eosinophils % % Basophils % % Neutrophils # (1.6-8.9) K/mcL Lymphocytes # (0.6-4.6) K/mcL Monocytes # (0.0-1.3) K/mcL Eosinophils # (0.0-0.6) K/mcL Basophils # (0.0-0.2) K/mcL PT 15.1 H (9.4-12.1) Seconds INR 1.4 APTT 43.8 H (26.0-36.0) Seconds Sodium (136-145) mEq/L Potassium (3.5-4.5) mEq/L Chloride (98-109) mEq/L Carbon Dioxide (19-29) mEq/L BUN (7-20) mg/dL Creatinine (0.57-1.11) mg/dL Est GFR ( Amer) (> 60) Est GFR (Non-Af Amer) (> 60) BUN/Creatinine Ratio (6-26) Glucose (70-99) mg/dL Calculated Osmolality (280-300) Calcium (8.6-10.8) mg/dL Troponin I (0-0.03) ng/mL B-Natriuretic Peptide 499 H (0-100) pg/mL - Radiology Data Radiology results reviewed: Yes I reviewed the patient's radiology results. Impressions Chest X-Ray 07/22/16 12:31 IMPRESSION: CHF with interstitial edema and right pleural effusion with right basilar atelectasis and/or edema D/ / Alexis Kaur MD / Alexis Kaur MD Interpreting Provider: Alexis Kaur MD - EKG Data EKG attestation: Yes I reviewed and interpreted this EKG. EKG shows normal: Reports: sinus rhythm, intervals, ST-T waves Stuart/QRS: Reports: left axis deviation, LBBB Interpretation: Reports: no acute changes
[2016-07-22 13:08] LABS: Basophils % 0.4 %; Hematocrit 47.4 % (35.3-44.9); Hemoglobin 15.5 g/dL (11.5-15.4); Immature Granulocytes % 0.9 % (0-4); Lymphocytes # 0.8 K/mcL (0.6-4.6); Lymphocytes % 13.8 %; Mean Corpuscular HGB Conc 32.7 g/dL (31.6-35.5); Mean Corpuscular Volume 82.4 fL (83.0-100.0); Mean Platelet Volume 10.9 fL (9.4-12.4); Monocytes # 0.7 K/mcL (0.0-1.3); Monocytes % 13.7 %; Neutrophils # 3.9 K/mcL (1.6-8.9); Platelet Count 166 K/mcL (140-400); Red Blood Count 5.75 M/mcL (3.82-4.97); Red Cell Distribution Width 14.4 % (11.5-14.5); Segmented Neutrophils % 71.2 %
[2016-07-22 13:13] LABS: INR 1.4; Prothrombin Time 15.1 Seconds (9.4-12.1)
[2016-07-22 13:16] LABS: Activated Partial Thrombo Time 43.8 Seconds (26.0-36.0)
[2016-07-22 13:20] LABS: BUN/Creatinine Ratio 11 (6-26); Blood Urea Nitrogen 6 mg/dL (7-20); Calcium 8.5 mg/dL (8.6-10.8); Carbon Dioxide 32 mEq/L (19-29); Chloride 83 mEq/L (98-109); Glucose 99 mg/dL (70-99); Osmolality,Calculated 262 (280-300); Potassium 3.3 mEq/L (3.5-4.5); Sodium 127 mEq/L (136-145); eGFR For African Americans > 60 (> 60); eGFR For Non-African Americans > 60 (> 60)
[2016-07-22] MEDS ORDERED: Ondansetron 4 MG/2 ML VIAL IVP PRN (15:07)
[2016-07-22] MEDS ORDERED: Albuterol 2.5 MG/3 ML NEBULIZER IH PRN (15:07)
[2016-07-22] MEDS ORDERED: Acetaminophen 325 MG TABLET PO PRN (15:07)
[2016-07-22] MEDS ORDERED: Naloxone 0.4 MG/ML INJ IVP PRN (15:07)
[2016-07-22] MEDS: Ipratropium/Albuterol Neb 3 ML IH SCH ×2 (15:38→21:22)
--- NOTE | 2016-07-22 17:00 | Electrocardiograph Report ---
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
[2016-07-22] MEDS: Gabapentin 300 MG CAPSULE PO SCH (22:19)
[2016-07-22] MEDS: Methocarbamol 500 MG TABLET PO SCH (22:20)
[2016-07-22] MEDS: *HR* OxyCODONE/APAP 10/325 TABLET PO PRN (22:25)
[2016-07-23] MEDS: Ipratropium/Albuterol Neb 3 ML IH SCH ×4 (03:43→21:33)
[2016-07-23] MEDS: Gabapentin 300 MG CAPSULE PO SCH ×4 (06:22→20:25)
[2016-07-23] MEDS: Methocarbamol 500 MG TABLET PO SCH ×4 (06:22→20:25)
[2016-07-23] MEDS: *HR* OxyCODONE/APAP 10/325 TABLET PO PRN ×3 (06:29→18:45)
[2016-07-23] MEDS ORDERED: Loratadine 10 MG TABLET PO PRN (09:00)
--- NOTE | 2016-07-23 09:32 | Internal Med History&Physical ---
Date of Encounter: 07/23/16 Time of Encounter: 09:05 Assessment and Plan (1) Diastolic heart failure Current visit: No Status: Chronic Continue metoprolol, Zaroxolyn, Bumex, and verapamil. I will add Lanoxin and isosorbide Qualifiers: Heart failure chronicity: chronic Qualified Code(s): I50.32 - Chronic diastolic (congestive) heart failure (2) Hypokalemia Current visit: Yes Status: Acute We will give supplemental potassium and monitor labs (3) DM type 2 (diabetes mellitus, type 2) Current visit: No Status: Chronic Hemoglobin A1c was 5.7% on 07/07/2016. Continue Amaryl and Accu-Cheks with SSI Qualifiers: Diabetes mellitus complication status: without complication Diabetes mellitus skilled nursing insulin use: without skilled nursing use Qualified Code(s): E11.9 - Type 2 diabetes mellitus without complications (4) Hypertension Current visit: No Status: Chronic Continue Bumex, Cozaar, Zaroxolyn, verapamil and Lopressor. Qualifiers: Hypertension type: essential hypertension Qualified Code(s): I10 - Essential (primary) hypertension Internal Medicine - H&P: HPI Chief complaint: Dyspnea Admitted From: Home Plans for Post Hospital Care: Home History of present illness: Ms. Ocampo is a 61 year old female who came to emergency room stating she had slight increased dyspnea over the preceding days. She did not feel overly concerned but her home health nurse and sister recommended she come to emergency room. She was evaluated in ER and found to have increased right pleural effusion. She was admitted to [facility] floor for ongoing care needs. She was hospitalized approximately 2 weeks ago at [facility] with pneumonia. She was treated with Levaquin during her hospital stay and and for 5 days post discharge. A chest CT done during the hospital stay showed probable right middle lobe partial collapse with obstruction of the right middle lobe bronchus. There was RML and RLL infiltrate suspicious for pneumonia. Obstructive neoplastic process could not be excluded. Small right pleural effusion was present. She reported she has an appointment with Dr. Schroeder at [facility] 08/22/2016 to follow-up on this. She states she quit smoking following discharge 2 weeks ago. She smoked from age 5 up to 3 packs per day. She has a diagnosis of COPD with PFTs done several years ago. She wears oxygen at home 02/01. Past Med Surg Social Fam HX - Past Medical History Medical history: arthritis, cancer, COPD, CVA, diabetes, GERD, hypertension, migraine, osteoporosis, other Psychiatric history: anxiety, depression - Past Surgical History Surgical History: appendectomy, breast surgery, , cancer surgery, hysterectomy, knee replacement, other - Social History Smoking Status: Current every day smoker Packs per day: 1 Smokeless Tobacco Status: No Alcohol use: none Drug use: none - Family History Father Hx Family Cardiac Disorders: Yes ([place]) Hx Family Endocrine Disorder: Yes Internal Medicine - H&P: Meds Aspirin [Lo-Dose Aspirin EC] 81 mg PO DAILY 01/18/16 [History] Calcium Carbonate [Calcium] 600 mg PO DAILY 01/18/16 [History] Losartan [Cozaar] 25 mg PO DAILY 01/18/16 [History] Methocarbamol [Robaxin-750] 750 mg PO TID 01/18/16 [History] OxyCODONE/APAP 10/325 [Percocet 10/325 MG] 1 each PO Q6HR PRN 01/18/16 [History] Saxagliptin HCl [Onglyza] 5 mg PO DAILY 01/18/16 [History] Sertraline [Zoloft] 25 mg PO DAILY 01/18/16 [History] Tiotropium [Spiriva] 18 mcg IH DAILY 01/18/16 [History] Metoprolol [Lopressor] 50 mg PO BID #60 tablet 01/20/16 [Rx] Verapamil ER (24 HR) [Calan SR] 180 mg PO DAILY #30 tablet.er 01/20/16 [Rx] Bumetanide [Bumex] 1 mg PO DAILY #30 tablet 02/15/16 [Rx] Potassium Chloride [Klor-Con Sprinkle] 20 meq PO BID #120 02/15/16 [Rx] Albuterol Sulfate [Albuterol Inhaler] 2 puff IH Q4HR PRN #0 03/31/16 [Rx] Gabapentin [Neurontin] 300 mg PO TID 07/06/16 [History] Glimepiride [Amaryl] 4 mg PO QDPC 07/06/16 [History] Hydroxyzine HCl 25 mg PO TID 07/06/16 [History] Methotrexate [Otrexup] 2.5 mg PO QWEEK 07/06/16 [History] Metolazone [Zaroxolyn] 2.5 mg PO DAILY 07/06/16 [History] Pantoprazole Sodium 40 mg PO QDPC 07/06/16 [History] Cetirizine HCl [All Day Allergy] 10 mg PO QDPC PRN #0 07/07/16 [Rx] Lactobacillus [Culturelle] 1 each PO BID #10 cap.sprink 07/07/16 [Rx] Allergies lisinopril Adverse Reaction (Verified 12/18/15 15:01) Cough morphine Adverse Reaction (Verified 12/18/15 15:01) Nausea Penicillins Adverse Reaction (Verified 12/18/15 15:01) Nausea ranitidine [From Zantac] Adverse Reaction (Verified 12/18/15 15:01) Diarrhea All Systems PM: A 10-system review of systems was performed and is negative for pertinent findings except as documented above in the HPI. Review of systems: Review of systems from her [facility] hospitalization June 2016 were reviewed and revised as below. General: Her weight has been stable at approximately 112 kg since March 2016 [facility] swing bed stay. Cardiovascular: She has history of hypertension. She denies HI DVT or pulmonary embolus. She had an echocardiogram done 12/22/2015 which was technically challenging with suboptimal windows. LV systolic function appeared grossly normal and there were no significant valvular abnormalities seen. She had a Regadenoson nuclear test 12/22/2015 which showed no evidence of ischemia or infarct. Respiratory: As per history of present illness GI: She has had cholecystectomy. She denies disorders of her liver or exocrine pancreas : she denies hematuria or dysuria or kidney stones Neurologic: She denies large distribution strokes or seizures Endocrine: She was diagnosed with DM 2 approximately 2004. She has hyperlipidemia and denies thyroid disease Hematology/oncology: She had right mastectomy 2005 for breast cancer. This was apparently curative and she denies chemotherapy or XRT post surgery. She had thrombocytopenia in the past which has resolved. She denies other blood disorders or internal malignancies Psychiatric: She has depression but no significant anxiety or other mental health issues Musk skeletal: She has history of gout, DJD, spinal stenosis, and osteoporosis with lumbar compression fractures. - Constitutional Vitals: Temp Pulse Resp BP Pulse Ox 97.7 F 81 16 122/55 94 L 07/23/16 06:41 07/23/16 06:41 07/23/16 06:41 07/23/16 06:41 07/23/16 06:41 Exam: Gen.: She is a well-developed well-nourished female who appears in no severe distress at present time. HEENT: Head is atraumatic and normocephalic. Eyes: EOMI. There is no scleral icterus. Mouth: Mucosa is moist. Neck: Supple and nontender. There is no thyromegaly or adenopathy noted. Heart: Regular without murmurs gallops or ectopics. Lungs: She has dullness right base with diminished breath sounds. There is no wheezing and no inspiratory crackles are heard. Abdomen: Soft and nontender. Exam is limited because she is in the seated position. Extremities: She is wearing Unna boots with gauze and Coban wrap on her legs. No pitting edema is noted on the dorsum of the feet through the wrap. She has mild DJD changes of her hands. Neurologic: Mental status: She is talkative and a good historian. Cranial nerves: Smile is symmetric. Forehead wrinkles bilaterally. Tongue protrudes midline. EOMI. Motor: There is no pronator drift. Cerebellar: Finger to nose is intact bilaterally. Skin: Warm and dry Internal Med - H&P Results - Labs CBC & Chem 7: 07/22/16 12:56 07/22/16 12:56
[2016-07-23] MEDS: Verapamil ER (24 HR) 180 MG TABLET.ER PO SCH (10:55)
[2016-07-23] MEDS: Bumetanide 1 MG TABLET PO SCH (10:55)
[2016-07-23] MEDS: Aspirin Enteric Coated 81 MG Tablet PO SCH (10:55)
[2016-07-23] MEDS: ONGLYZA 5MG SCH (10:56)
[2016-07-23] MEDS: *HR* Glimepiride 2 MG TABLET PO SCH (11:39)
[2016-07-23] MEDS: *HR* Digoxin 0.25 MG TABLET PO SCH (11:40)
[2016-07-23] MEDS: Isosorbide MONOnitrate (24 HR) 30 MG TAB.ER.24H PO SCH (18:46)
[2016-07-24] MEDS: *HR* OxyCODONE/APAP 10/325 TABLET PO PRN ×2 (02:07→09:02)
[2016-07-24] MEDS: Ipratropium/Albuterol Neb 3 ML IH SCH ×2 (04:46→09:54)
[2016-07-24 05:13] LABS: Basophils % 0.3 %; Eosinophils % 0.3 %; Hematocrit 47.7 % (35.3-44.9); Hemoglobin 15.1 g/dL (11.5-15.4); Immature Granulocytes % 0.3 % (0-4); Lymphocytes # 1.6 K/mcL (0.6-4.6); Mean Corpuscular HGB Conc 31.7 g/dL (31.6-35.5); Mean Corpuscular Hemoglobin 26.6 pg (28.0-33.3); Mean Platelet Volume 10.4 fL (9.4-12.4); Monocytes # 0.7 K/mcL (0.0-1.3); Monocytes % 11.2 %; Neutrophils # 3.6 K/mcL (1.6-8.9); Platelet Count 158 K/mcL (140-400); Red Blood Count 5.68 M/mcL (3.82-4.97); Red Cell Distribution Width 14.4 % (11.5-14.5); Segmented Neutrophils % 60.9 %
[2016-07-24 05:41] LABS: Alanine Aminotransferase < 6 Units/L (0-55); Albumin 3.1 g/dL (3.5-5.0); Albumin/Globulin Ratio 0.8 (1.1-2.2); Alkaline Phosphatase 45 Units/L (38-126); Aspartate Amino Transferase 11 Units/L (5-34); BUN/Creatinine Ratio 20 (6-26); Bilirubin,Total 0.4 mg/dL (0.2-1.2); Blood Urea Nitrogen 12 mg/dL (7-20); Calcium 8.7 mg/dL (8.6-10.8); Carbon Dioxide 34 mEq/L (19-29); Chloride 84 mEq/L (98-109); Globulin 3.7 g/dL (2.4-3.5); Glucose 78 mg/dL (70-99); Magnesium 1.8 mg/dL (1.6-2.6); Osmolality,Calculated 267 (280-300); Potassium 3.5 mEq/L (3.5-4.5); Sodium 129 mEq/L (136-145); Total Protein 6.8 g/dL (6.0-8.3); eGFR For African Americans > 60 (> 60); eGFR For Non-African Americans > 60 (> 60)
[2016-07-24] MEDS: *HR* Glimepiride 2 MG TABLET PO SCH (08:51)
[2016-07-24] MEDS: Isosorbide MONOnitrate (24 HR) 30 MG TAB.ER.24H PO SCH (08:51)
[2016-07-24] MEDS: Bumetanide 1 MG TABLET PO SCH (08:51)
[2016-07-24] MEDS: Aspirin Enteric Coated 81 MG Tablet PO SCH (08:53)
[2016-07-24] MEDS: Methocarbamol 500 MG TABLET PO SCH (08:53)
[2016-07-24] MEDS: ONGLYZA 5MG SCH (08:54)
[2016-07-24] MEDS: Gabapentin 300 MG CAPSULE PO SCH (08:54)
[2016-07-24] MEDS: Verapamil ER (24 HR) 180 MG TABLET.ER PO SCH (08:54)
[2016-07-24] MEDS: *HR* Digoxin 0.25 MG TABLET PO SCH (08:54)
--- NOTE | 2016-07-24 09:59 | Discharge Summary ---
Date of Encounter: 07/24/16 Time of Encounter: 09:45 - Discharge Diagnosis (1) Diastolic heart failure Priority: Primary Status: Chronic Qualifiers: Heart failure chronicity: chronic Qualified Code(s): I50.32 - Chronic diastolic (congestive) heart failure (2) Hypokalemia Priority: Secondary Status: Resolved (3) DM type 2 (diabetes mellitus, type 2) Priority: Secondary Status: Chronic Qualifiers: Diabetes mellitus complication status: without complication Diabetes mellitus senior care insulin use: without long term care phlebotomist use Qualified Code(s): E11.9 - Type 2 diabetes mellitus without complications (4) Hypertension Priority: Secondary Status: Chronic Qualifiers: Hypertension type: essential hypertension Qualified Code(s): I10 - Essential (primary) hypertension - Discharge Medications Prescriptions: Digoxin [Lanoxin] 0.25 mg PO DAILY #30 tablet Isosorbide MONOnitrate (24 HR) [Imdur] 30 mg PO DAILY #30 tab.er.24h Lactobacillus [Culturelle] 1 each PO BID #10 cap.sprink Levofloxacin [Levaquin] 500 mg PO DAILY #5 tablet Potassium Chloride [Klor-Con Sprinkle] 30 meq PO Q12H #180 capsule.er Home Medications: Aspirin [Lo-Dose Aspirin EC] 81 mg PO DAILY 01/18/16 [History] Calcium Carbonate [Calcium] 600 mg PO DAILY 01/18/16 [History] Losartan [Cozaar] 25 mg PO DAILY 01/18/16 [History] Methocarbamol [Robaxin-750] 750 mg PO TID 01/18/16 [History] OxyCODONE/APAP 10/325 [Percocet 10/325 MG] 1 each PO Q6HR PRN 01/18/16 [History] Saxagliptin HCl [Onglyza] 5 mg PO DAILY 01/18/16 [History] Sertraline [Zoloft] 25 mg PO DAILY 01/18/16 [History] Tiotropium [Spiriva] 18 mcg IH DAILY 01/18/16 [History] Metoprolol [Lopressor] 50 mg PO BID #60 tablet 01/20/16 [Rx] Verapamil ER (24 HR) [Calan SR] 180 mg PO DAILY #30 tablet.er 01/20/16 [Rx] Bumetanide [Bumex] 1 mg PO DAILY #30 tablet 09/05/16 [Rx] Albuterol Sulfate [Albuterol Inhaler] 2 puff IH Q4HR PRN #0 03/31/16 [Rx] Gabapentin [Neurontin] 300 mg PO TID 07/06/16 [History] Glimepiride [Amaryl] 4 mg PO QDPC 07/06/16 [History] Hydroxyzine HCl 25 mg PO TID 07/06/16 [History] Methotrexate [Otrexup] 2.5 mg PO QWEEK 07/06/16 [History] Metolazone [Zaroxolyn] 2.5 mg PO DAILY 07/06/16 [History] Pantoprazole Sodium 40 mg PO QDPC 07/06/16 [History] Cetirizine HCl [All Day Allergy] 10 mg PO QDPC PRN #0 07/07/16 [Rx] Digoxin [Lanoxin] 0.25 mg PO DAILY #30 tablet 07/24/16 [Rx] Isosorbide MONOnitrate (24 HR) [Imdur] 30 mg PO DAILY #30 tab.er.24h 07/24/16 [ Rx] Lactobacillus [Culturelle] 1 each PO BID #10 cap.sprink 07/24/16 [Rx] Levofloxacin [Levaquin] 500 mg PO DAILY #5 tablet 07/24/16 [Rx] Potassium Chloride [Klor-Con Sprinkle] 30 meq PO Q12H #180 capsule.er 07/24/16 [ Rx] Allergies/Adverse Reactions: Allergies lisinopril Adverse Reaction (Verified 12/18/15 15:01) Cough morphine Adverse Reaction (Verified 12/18/15 15:01) Nausea Penicillins Adverse Reaction (Verified 12/18/15 15:01) Nausea ranitidine [From Zantac] Adverse Reaction (Verified 12/18/15 15:01) Diarrhea Date of admission: 07/22/16 14:49 Primary care physician: Maria Luz Bonner CNP Consults: 07/22/16 16:32 Consult to Nutrition [CONS] Routine Comment: States "I won't drink ensure." Consulting Provider: NUTRITION Reason for Dietary Consult: MST Score Consult to Sane Rn [CONS] Routine Reason for SW Consult: Home health, home oxygen. - Patient Status Disposition: Home, Self-Care Condition: Fair Functional capacity at discharge: independent ambulation Overall status at discharge: patient is progressing back to baseline - Discharge Instructions Follow Up With: Maria Luz Bonner CNP [Primary Care Provider] - 1 week - Diet and Activity Activity: resume usual activities as tolerated, wear oxygen at all times Diet: diabetic diet Hospital course: Ms. Ocampo is a 61 year old female who came to emergency room stating she had slight increased dyspnea over the preceding days. She did not feel overly concerned but her home health nurse and sister recommended she come to emergency room. She was evaluated in ER and found to have increased right pleural effusion. She was admitted to [facility] floor for ongoing care needs. Initial orders were written by the emergency room physician. I saw her on July 23 and performed a history and physical. She was started on Levaquin for possible right lung pneumonia. She will be maintained on this with lactobacillus for 5 additional days at discharge. She is scheduled to see the assembly line machine operator at [facility] on 08/22/2016 for further evaluation of possible partial right middle lobe collapse. She was encouraged to remain a nonsmoker. She has supplemental oxygen at home. Lanoxin and isosorbide were added to her existing medical regimen. She had significant decrease in her bn-peptide from 499 on admission to 82 on July 24. She will continue on Lanoxin and isosorbide at home. Her sodium improved to 129 and potassium normalized to 3.5. She will continue higher dose potassium chloride of 30 mEq every 12 hours at discharge. On July 24 I felt she was stable for discharge home. She will follow with Maria Luz Bonner CNP within 1 week. - Time Spent with Patient Total time spent providing and/or coordinating discharge services: - Constitutional Vitals: Temp Pulse Resp BP Pulse Ox 98.0 F 72 16 110/52 96 07/24/16 06:52 07/24/16 06:52 07/24/16 06:52 07/24/16 06:52 07/24/16 06:52
[2016-07-24 12:45] VITALS: BP 118/79
[2016-07-25] MEDS ORDERED: *HR* Methotrexate 2.5 MG TABLET PO SCH (09:00)
== END 2016-07-24 13:45 | disposition home or self-care (01) ==
LOC: INPPIK 12:30 → EMEROOPIK 12:30 → INPPIK 15:15
PROVIDERS: ADMIT Internal Medicine; ATTEND Internal Medicine

== ENCOUNTER 2016-12-31 15:20 | Inpatient (IN) ==
--- NOTE | 2016-12-31 15:32 | Emergency Department Note ---
Disposition Clinical Impression: Weakness Acute renal failure Qualifiers: Acute renal failure type: unspecified Qualified Code(s): N17.9 - Acute kidney failure, unspecified Leukocytosis Qualifiers: Leukocytosis type: bandemia Qualified Code(s): D72.825 - Bandemia UTI (urinary tract infection) Qualifiers: Urinary tract infection type: acute cystitis Hematuria presence: without hematuria Qualified Code(s): N30.00 - Acute cystitis without hematuria Disposition: Admitted As Inpatient Condition: Fair Referrals: Maria Luz Bonner CNP [Primary Care Provider] - Forms: ED Satisfaction Letter Chest Pain HPI - General Chief Complaint: ED Chest Pain Stated Complaint: chest pain for 3 days ' low BP" Time Seen by Provider: 12/31/16 15:27 Source: patient, EMS Mode of arrival: EMS Limitations: no limitations Vital Signs Reviewed: Yes Nursing Notes Reviewed: Yes - History of Present Illness HPI Narrative: The patient presents stating that she has this when she sitting she started to lean to the right side and her family started she might of had some slurring in her speech. She states this has been going on for 3-4 days and might of been a little worse today. She states her family "talked me into coming in" to the emergency department today. She has also been having chest pain for 4 days that also seemed a little worse today. She describes as a squeezing to stabbing in character and is a 5-7 on a scale of 1-10. She states the pain is worse with breathing or motion. She does report a cough which is nonproductive. She denies fevers but has had some chills. She denies diaphoresis, nausea, jaw or arm pain. She denies any lower extremity complaints but states she has edema and has her legs wrapped. She has had some generalized malaise and anorexia and states she has not eaten much for 2 days. She states she has "migraines all the time" and does not have any unusual headaches. She denies any new numbness tingling or weakness other than her right arm occasionally "goes numb". She relates this has primarily been in the last 4-5 days. She relates this is similar to March 2016 when she was transferred to [facility] having had a stroke. When I review this record she had pneumonia, respiratory failure and ultimately was intubated with a chest tube. She was then seen at this facility again for a week for rehabilitation on the floor on a swing bed. She does have a previous history of stroke but no stroke mentioned at that time. An EKG was performed and transmitted by EMS at 3:03 PM. This demonstrated a left bundle-branch block with a left axis deviation in a sinus rhythm with a rate of 84. There are no ST or T-wave changes to suggest ischemia or infarction. This is on my interpretation. Pt complaint: chest pain Onset (ago): day(s) (4) Duration: constant Onset: during rest Pain Location: substernal Severity: moderate Quality: tightness, sharp Pain Radiation: none Improves with: nothing Worsens with: inspiration, movement Context: recent illness Associated symptoms: Reports: dyspnea, cough. Denies: nausea, vomiting, diaphoresis, syncope, palpitations, fever, leg swelling Treatments prior to arrival chest pain: none - Related Data Home Medications Medication Instructions Recorded Confirmed Aspirin [Lo-Dose Aspirin EC] 81 mg PO DAILY 01/18/16 12/31/16 Calcium Carbonate [Calcium] 600 mg PO DAILY 01/18/16 12/31/16 Losartan [Cozaar] 25 mg PO DAILY 01/18/16 12/31/16 Methocarbamol [Robaxin-750] 750 mg PO TID 01/18/16 12/31/16 OxyCODONE/APAP 10/325 [Percocet 1 each PO Q6HR PRN 01/18/16 12/31/16 10/325 MG] Saxagliptin HCl [Onglyza] 5 mg PO DAILY 01/18/16 12/31/16 Sertraline [Zoloft] 25 mg PO DAILY 01/18/16 12/31/16 Gabapentin [Neurontin] 300 mg PO TID 07/06/16 12/31/16 Glimepiride [Amaryl] 4 mg PO QDPC 07/06/16 12/31/16 Methotrexate [Otrexup] 2.5 mg PO QWEEK 07/06/16 12/31/16 Pantoprazole Sodium 40 mg PO QDPC 07/06/16 12/31/16 hydrOXYzine HCl [Hydroxyzine HCl] 25 mg PO TID 07/06/16 12/31/16 metOLazone [Zaroxolyn] 2.5 mg PO DAILY 07/06/16 12/31/16 Previous Rx's Medication Instructions Recorded Metoprolol [Lopressor] 50 mg PO BID #60 tablet 01/20/16 Verapamil ER (24 HR) [Calan SR] 180 mg PO DAILY #30 tablet.er 01/20/16 Bumetanide [Bumex] 1 mg PO DAILY #30 tablet 02/15/16 Albuterol Sulfate [Albuterol 2 puff IH Q4HR PRN #0 03/31/16 Inhaler] Cetirizine HCl [All Day Allergy] 10 mg PO QDPC PRN #0 07/07/16 Digoxin [Lanoxin] 0.25 mg PO DAILY #30 tablet 07/24/16 Isosorbide MONOnitrate (24 HR) 30 mg PO DAILY #30 tab.er.24h 07/24/16 [Imdur] Lactobacillus [Culturelle] 1 each PO BID #10 cap.sprink 07/24/16 Potassium Chloride [Klor-Con 30 meq PO Q12H #180 capsule.er 07/24/16 Sprinkle] Allergies Allergy/AdvReac Type Severity Reaction Status Date / Time lisinopril AdvReac Cough Verified 09/21/16 10:54 morphine AdvReac Nausea Verified 09/21/16 10:54 Penicillins AdvReac Nausea Verified 09/21/16 10:54 ranitidine [From Zantac] AdvReac Diarrhea Verified 09/21/16 10:54 All systems ED: reviewed and negative except as stated. 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 Absent: scleral icterus, conjunctival injection - ENT ENT exam: normal exam, normal oropharynx, mucous membranes moist - Neck Neck exam: Present: normal inspection, full ROM, trachea midline - Chest Chest inspection: Present: normal inspection, symmetric chest wall rise - Respiratory Respiratory exam: Present: normal lung sounds bilaterally. Absent: respiratory distress, wheezes, prolonged expiratory phase - Cardiovascular Cardiovascular exam: Present: regular rate, normal rhythm, normal heart sounds. Absent: tachycardia - Abdominal Exam Abdominal exam: Present: soft, Non-Tender, normal bowel sounds. Absent: tenderness, distention, guarding, rebound, rigidity - Extremities Exam Extremities exam: Present: normal inspection, full ROM, normal capillary refill. Absent: tenderness, pedal edema (Legs are wrapped with [place] and are not swollen at this time.) - Expanded Lower Extremity Exam Neurovascular/Tendon exam: Present: normal capillary refill. Absent: motor deficit, sensory deficit, tendon deficit Gait: not tested/not observed - Back Exam Back exam: Present: normal inspection, full ROM. Absent: tenderness, CVA tenderness (R), CVA tenderness (L) - Neurological Exam Neurological exam: Present: alert, oriented X3, CN II-XII intact. Absent: motor sensory deficit - Psychiatric Psychiatric exam: Present: normal affect, normal mood - Skin Skin exam: Present: warm, dry, intact, normal color. Absent: rash, cyanosis, diaphoresis, pallor Course Course Narrative: 1700: Care has been discussed with Dr. Aryan Penny. He is agreeable with continuation of hydration with repeat BMP and CBC tomorrow. I discussed starting elective antibiotic coverage and he would like to wait return of urine and blood cultures before determination of any antibiotic coverage. Verbal orders are obtained for the patient's observation. Patient remains in stable, fair condition. 1730: The patient's urine shows 50 white cells and bacteria present. She has been started on Rocephin to cover for urinary pathogens. This is also coordinated to the floor orders. She is being transferred to the floor in stable condition. Vital Signs Temperature 99.8 F H 12/31/16 15:27 Pulse Rate 82 12/31/16 15:27 Respiratory Rate 18 12/31/16 15:27 Blood Pressure 88/47 12/31/16 15:27 O2 Sat by Pulse Oximetry 94 12/31/16 15:27 Temperature 99.8 F H 12/31/16 17:23 Pulse Rate 85 12/31/16 17:16 Respiratory Rate 24 12/31/16 17:23 Blood Pressure 103/52 12/31/16 17:23 O2 Sat by Pulse Oximetry 100 12/31/16 16:55 Oxygen Delivery Oxygen Delivery Nasal Cannula Chest Pain - Differential Diagnosis Likely: atypical chest pain, costalchondritis, chest pain - Medical Records Medical records reviewed: Yes I reviewed the patient's medical records. - Lab Data Lab results reviewed: Yes I reviewed the patient's lab results. Result diagrams: 12/31/16 16:14 12/31/16 16:14 Lab Results 12/31/16 12/31/16 12/31/16 Range/Units 16:14 16:14 16:14 WBC 37.4 H* (4.3-11.1) K/mcL RBC 4.48 (3.82-4.97) M/mcL Hgb 12.7 (11.5-15.4) g/dL Hct 37.9 (35.3-44.9) % MCV 84.6 (83.0-100.0) fL MCH 28.3 (28.0-33.3) pg MCHC 33.5 (31.6-35.5) g/dL RDW 18.7 H (11.5-14.5) % Plt Count 150 (140-400) K/mcL MPV 12.2 (9.4-12.4) fL Seg Neutrophils % 74.0 % Band Neutrophils % 16.0 H (0-4) % Lymphocytes % 6.0 % Metamyelocytes % 4.0 H (0) % Neutrophils # 33.7 H (1.6-8.9) K/mcL Lymphocytes # 2.2 (0.6-4.6) K/mcL Basophilic Stippling 1+ A (Not Present) Anisocytosis 1+ A (Not Present) VBG Lactic Acid (0.5-2.2) mmol/L Sodium 129 L (136-145) mEq/L Potassium 4.2 (3.5-4.5) mEq/L Chloride 91 L (98-109) mEq/L Carbon Dioxide 22 (19-29) mEq/L BUN 32 H (7-20) mg/dL Creatinine 1.87 H (0.57-1.11) mg/dL Est GFR ( Amer) 33 L (> 60) Est GFR (Non-Af Amer) 27 L (> 60) BUN/Creatinine Ratio 17 (6-26) Glucose 139 H (70-99) mg/dL Calculated Osmolality 277 L (280-300) Calcium 8.6 (8.6-10.8) mg/dL Troponin I 0.01 (0-0.03) ng/mL Urine Color (Yellow) Urine Clarity (Clear) Urine pH (5.0-8.0) pH Units Ur Specific [place] (1.010-1.025) Urine Protein (Neg-Trace) mg/dL Urine Glucose (UA) (Normal) mg/dL Urine Ketones (Negative) mg/dL Urine Blood (Negative) Urine Nitrite (Negative) Urine Bilirubin (Negative) Urine Urobilinogen (Normal) mg/dL Ur Leukocyte Esterase (Negative) Urine Microscopic RBC (0-3) per hpf Urine Microscopic WBC (0-3) per hpf Urine Bacteria (None-Few) per hpf Urine Mucus (Few) Ur Culture Indicated? (NO) 12/31/16 12/31/16 Range/Units 17:00 17:05 WBC (4.3-11.1) K/mcL RBC (3.82-4.97) M/mcL Hgb (11.5-15.4) g/dL Hct (35.3-44.9) % MCV (83.0-100.0) fL MCH (28.0-33.3) pg MCHC (31.6-35.5) g/dL RDW (11.5-14.5) % Plt Count (140-400) K/mcL MPV (9.4-12.4) fL Seg Neutrophils % % Band Neutrophils % (0-4) % Lymphocytes % % Metamyelocytes % (0) % Neutrophils # (1.6-8.9) K/mcL Lymphocytes # (0.6-4.6) K/mcL Basophilic Stippling (Not Present) Anisocytosis (Not Present) VBG Lactic Acid 1.6 (0.5-2.2) mmol/L Sodium (136-145) mEq/L Potassium (3.5-4.5) mEq/L Chloride (98-109) mEq/L Carbon Dioxide (19-29) mEq/L BUN (7-20) mg/dL Creatinine (0.57-1.11) mg/dL Est GFR ( Amer) (> 60) Est GFR (Non-Af Amer) (> 60) BUN/Creatinine Ratio (6-26) Glucose (70-99) mg/dL Calculated Osmolality (280-300) Calcium (8.6-10.8) mg/dL Troponin I (0-0.03) ng/mL Urine Color Yellow (Yellow) Urine Clarity Turbid A (Clear) Urine pH 5.0 (5.0-8.0) pH Units Ur Specific [place] 1.015 (1.010-1.025) Urine Protein 100 H (Neg-Trace) mg/dL Urine Glucose (UA) Normal (Normal) mg/dL Urine Ketones Trace H (Negative) mg/dL Urine Blood Moderate H (Negative) Urine Nitrite Negative (Negative) Urine Bilirubin Small H (Negative) Urine Urobilinogen Normal (Normal) mg/dL Ur Leukocyte Esterase Large H (Negative) Urine Microscopic RBC 5-15 H (0-3) per hpf Urine Microscopic WBC 50-100 H (0-3) per hpf Urine Bacteria Many H (None-Few) per hpf Urine Mucus Few (Few) Ur Culture Indicated? YES A (NO) - Radiology Data Radiology results reviewed: Yes I reviewed the patient's radiology results. Single view chest x-ray is performed. This does not demonstrate evidence for infiltrate, effusion, pneumothorax, foreign body or heart failure. The cardiac silhouette is normal. I do not see abnormality to the osseous structures of the chest. This is on my interpretation. CT head is performed. This is reviewed on bone and soft tissue windows. There is no evidence for acute intracranial bleed, shift, mass or edema. Mastoids and sinuses appear normal. There is no fracture evident. This is on my interpretation. Impressions Head CT 12/31/16 15:32 IMPRESSION: No acute intracranial abnormality. Left maxillary sinus disease. D/ / Geovanni Ricardo MD / Geovanni Ricardo MD Interpreting Provider: Geovanni Ricardo MD Chest X-Ray 12/31/16 15:45 IMPRESSION: Improving edema and bibasilar atelectasis D/ / Mohsen Greenfield MD / Mohsen Greenfield MD Interpreting Provider: Mohsen Greenfield MD - EKG Data EKG attestation: Yes I reviewed and interpreted this EKG. EKG shows normal: sinus rhythm, intervals, ST-T waves [place]/QRS: left axis deviation, LBBB Interpretation: no acute changes, unchanged when compared to prior tracing (date )
[2016-12-31 16:19] LABS: Hematocrit 37.9 % (35.3-44.9); Hemoglobin 12.7 g/dL (11.5-15.4); Mean Corpuscular HGB Conc 33.5 g/dL (31.6-35.5); Mean Corpuscular Hemoglobin 28.3 pg (28.0-33.3); Mean Corpuscular Volume 84.6 fL (83.0-100.0); Mean Platelet Volume 12.2 fL (9.4-12.4); Platelet Count 150 K/mcL (140-400); Red Blood Count 4.48 M/mcL (3.82-4.97); Red Cell Distribution Width 18.7 % (11.5-14.5)
[2016-12-31 16:28] LABS: Lymphocytes # 2.2 K/mcL (0.6-4.6); Neutrophils # 33.7 K/mcL (1.6-8.9)
[2016-12-31 16:29] LABS: Anisocytosis 1+ (Not Present); Basophilic Stippling 1+ (Not Present)
[2016-12-31 16:35] LABS: Calcium 8.6 mg/dL (8.6-10.8); Potassium 4.2 mEq/L (3.5-4.5)
[2016-12-31] MEDS ORDERED: D5% in Water 1,000 ML IVC PRN ×2 (17:06→17:34)
[2016-12-31] MEDS ORDERED: *HR* Dextrose 50 % in Water (Syg) 50 ML SYRINGE IVP PRN ×2 (17:06→17:34)
[2016-12-31] MEDS ORDERED: Dextrose Gel 15 GM PO PRN ×4 (17:06→17:34)
[2016-12-31 17:10] LABS: Bilirubin,Urine Small (Negative); Blood,Urine Moderate (Negative); Clarity,Urine Turbid (Clear); Color,Urine Yellow (Yellow); Glucose,Urine (UA) Normal (Normal); Ketones,Urine Trace mg/dL (Negative); Leukocyte Esterase,Urine Large (Negative); Nitrite,Urine Negative (Negative); Protein,Urine 100 mg/dL (Neg-Trace); Specific Gravity,Urine 1.015 (1.010-1.025); Urobilinogen,Urine Normal (Normal)
[2016-12-31 17:19] LABS: Bacteria,Urine Many per hpf (None-Few); Mucus,Urine Few (Few); WBC,Urine 50-100 per hpf (0-3)
[2016-12-31] MEDS ORDERED: MOM Conc 10 ML UD.LIQ PO PRN (17:34)
[2016-12-31] MEDS ORDERED: Loratadine 10 MG TABLET PO PRN (17:34)
[2016-12-31] MEDS ORDERED: Naloxone 0.4 MG/ML INJ IVP PRN (17:34)
[2016-12-31] MEDS ORDERED: Ondansetron 4 MG/2 ML VIAL IVP PRN (17:34)
[2016-12-31] MEDS: 0.9 % Sodium Chloride 1,000 ML IVC SCH (20:17)
[2016-12-31] MEDS ORDERED: Insulin LISPRO 300 UNITS/3 ML VIAL SQ SCH (21:00)
[2016-12-31] MEDS: Lactobacillus 1 EACH CAP.SPRINK PO SCH (21:57)
[2016-12-31] MEDS: Methocarbamol 500 MG TABLET PO SCH (21:57)
[2016-12-31] MEDS: hydrOXYzine pamoate 25 MG CAPSULE PO SCH (21:58)
[2016-12-31] MEDS: Gabapentin 300 MG CAPSULE PO SCH (21:58)
[2016-12-31] MEDS: Insulin LISPRO 300 UNITS/3 ML VIAL SQ SCH (22:12)
[2017-01-01] MEDS: Acetaminophen 325 MG TABLET PO PRN (02:55)
[2017-01-01] MEDS: 0.9 % Sodium Chloride 1,000 ML IVC SCH ×3 (03:54→12:25)
[2017-01-01 05:23] LABS: Hematocrit 39.7 % (35.3-44.9); Mean Corpuscular HGB Conc 32.7 g/dL (31.6-35.5); Mean Corpuscular Hemoglobin 28.2 pg (28.0-33.3); Mean Corpuscular Volume 86.1 fL (83.0-100.0); Mean Platelet Volume 12.9 fL (9.4-12.4); Platelet Count 138 K/mcL (140-400); Red Blood Count 4.61 M/mcL (3.82-4.97); Red Cell Distribution Width 18.6 % (11.5-14.5)
[2017-01-01 05:42] LABS: Calcium 8.9 mg/dL (8.6-10.8); Potassium 3.8 mEq/L (3.5-4.5)
[2017-01-01 05:47] LABS: Lymphocytes # 3.5 K/mcL (0.6-4.6); Monocytes # 0.6 K/mcL (0.0-1.3); Neutrophils # 25.2 K/mcL (1.6-8.9)
[2017-01-01 05:48] LABS: Dohle Bodies Present (Not Present); Toxic Granulation Present (Not Present)
[2017-01-01 05:54] LABS: Basophilic Stippling 1+ (Not Present)
[2017-01-01] MEDS ORDERED: Insulin LISPRO 300 UNITS/3 ML VIAL SQ SCH (07:30)
[2017-01-01] MEDS ORDERED: Aspirin Enteric Coated 81 MG Tablet PO SCH (09:00)
--- NOTE | 2017-01-01 09:33 | Internal Med History&Physical ---
Date of Encounter: 01/01/17 Time of Encounter: 09:30 Assessment and Plan (1) Sepsis secondary to UTI Current visit: Yes Status: Acute Pt was febrile overnight with moderate symptoms. She is unsuitable for outpatient management at this time. Will continue IV antibiotics along with supportive care with IV fluids and anti-emetics. Will monitor. Urine culture received and pending. Blood cultures received and pending. (2) Acute renal failure Current visit: Yes Status: Acute Resolving. Will continue IV fluids and repeat renal panel in the AM. (3) Leukocytosis Current visit: Yes Status: Acute Pt with significant leukocytosis since 09/2016 which has improved to that baseline overnight with IV antibiotics. If leukocytosis persists, recommend hematology/oncology consult at outpatient. Qualifiers: Leukocytosis type: bandemia Qualified Code(s): D72.825 - Bandemia (4) Weakness Current visit: Yes Status: Acute Likely related to primary diagnosis. Will treat underlying infection and monitor. (5) UTI (urinary tract infection) Current visit: Yes Status: Acute Qualifiers: Urinary tract infection type: acute cystitis Hematuria presence: without hematuria Qualified Code(s): N30.00 - Acute cystitis without hematuria Internal Medicine - H&P: HPI Chief complaint: generalized weakness, decreased appetite Admitted From: Emergency Dept Plans for Post Hospital Care: Home History of present illness: Ms. Ocampo is a 61 year old female with multiple medical comorbidities that presented to the ED with a several day history of sharp chest pain with inspiration and movement along with generalized weakness, malaise and fatigue with decreased appetite. She had no neurologic deficits in ED. CT scan head revealed only L maxillary sinus disease. CXR normal. Significant leukocytosis and ARF noted on labs along with fever and positive UA. Pt was given IV fluids and IV antibiotics and then admitted to the med surg unit for further evaluation and treatment. Upon evaluation this morning, pt states that she feels somewhat better, but remains weak and tired. She has no appetite. No vomiting. + chills and sweats. She denies any urinary symptoms or abdominal pain. Pt only complains of her chronic low back pain. Past Med Surg Social Fam HX - Past Medical History Medical history: arthritis, cancer, COPD, CVA, diabetes, GERD, hypertension, migraine, osteoporosis, other Psychiatric history: anxiety, depression - Past Surgical History Surgical History: appendectomy, breast surgery, , cancer surgery, hysterectomy, knee replacement, other - Social History Smoking Status: Current every day smoker Packs per day: 1 Smokeless Tobacco Status: No Alcohol use: none Drug use: none - Family History Father Hx Family Cardiac Disorders: Yes ([place]) Hx Family Endocrine Disorder: Yes Internal Medicine - H&P: Meds Aspirin [Lo-Dose Aspirin EC] 81 mg PO DAILY 01/18/16 [History] Calcium Carbonate [Calcium] 600 mg PO DAILY 01/18/16 [History] Losartan [Cozaar] 25 mg PO DAILY 01/18/16 [History] Methocarbamol [Robaxin-750] 750 mg PO TID 01/18/16 [History] OxyCODONE/APAP 10/325 [Percocet 10/325 MG] 1 each PO Q6HR PRN 01/18/16 [History] Saxagliptin HCl [Onglyza] 5 mg PO DAILY 01/18/16 [History] Sertraline [Zoloft] 25 mg PO DAILY 01/18/16 [History] Metoprolol [Lopressor] 50 mg PO BID #60 tablet 01/20/16 [Rx] Verapamil ER (24 HR) [Calan SR] 180 mg PO DAILY #30 tablet.er 01/20/16 [Rx] Bumetanide [Bumex] 1 mg PO DAILY #30 tablet 02/15/16 [Rx] Albuterol Sulfate [Albuterol Inhaler] 2 puff IH Q4HR PRN #0 03/31/16 [Rx] Gabapentin [Neurontin] 300 mg PO TID 07/06/16 [History] Glimepiride [Amaryl] 4 mg PO QDPC 07/06/16 [History] Methotrexate [Otrexup] 2.5 mg PO QWEEK 07/06/16 [History] Pantoprazole Sodium 40 mg PO QDPC 07/06/16 [History] hydrOXYzine HCl [Hydroxyzine HCl] 25 mg PO TID 07/06/16 [History] metOLazone [Zaroxolyn] 2.5 mg PO DAILY 07/06/16 [History] Cetirizine HCl [All Day Allergy] 10 mg PO QDPC PRN #0 07/07/16 [Rx] Digoxin [Lanoxin] 0.25 mg PO DAILY #30 tablet 07/24/16 [Rx] Isosorbide MONOnitrate (24 HR) [Imdur] 30 mg PO DAILY #30 tab.er.24h 07/24/16 [ Rx] Lactobacillus [Culturelle] 1 each PO BID #10 cap.sprink 07/24/16 [Rx] Potassium Chloride [Klor-Con Sprinkle] 30 meq PO Q12H #180 capsule.er 07/24/16 [ Rx] Allergies lisinopril Adverse Reaction (Verified 09/21/16 10:54) Cough morphine Adverse Reaction (Verified 09/21/16 10:54) Nausea Penicillins Adverse Reaction (Verified 09/21/16 10:54) Nausea ranitidine [From Zantac] Adverse Reaction (Verified 09/21/16 10:54) Diarrhea All Systems PM: A 10-system review of systems was performed and is negative for pertinent findings except as documented above in the HPI. - Constitutional Vitals: Temp Pulse Resp BP Pulse Ox 98.4 F 95 18 107/64 95 01/01/17 06:42 01/01/17 06:42 01/01/17 06:42 01/01/17 06:42 01/01/17 06:42 Exam: Gen: Lying in bed, NAD, obese HEENT: NC, AT, no maxillary sinus tenderness Neck: Trachea midline, no mass Pulm: No respiratory distress, CTAB CV: Normal S1 and S2, RRR Abdomen: Soft, ND, NT Ext: No C/C/E Neuro: No appreciable motor/sensor deficits Skin: Warm and dry, no rash Psych: A&Ox3 Internal Med - H&P Results - Labs CBC & Chem 7: 01/01/17 04:52 01/01/17 04:52 Labs: Short CBC 01/01/17 Range/Units 04:52 WBC 29.3 H (4.3-11.1) K/mcL Hgb 13.0 (11.5-15.4) g/dL Hct 39.7 (35.3-44.9) % Plt Count 138 L (140-400) K/mcL Neutrophils # 25.2 H (1.6-8.9) K/mcL BMP 01/01/17 04:52 Sodium 132 L Potassium 3.8 Chloride 95 L Carbon Dioxide 23 BUN 34 H Creatinine 1.40 H Glucose 96 Calcium 8.9
[2017-01-01] MEDS: *HR* OxyCODONE/APAP 10/325 TABLET PO PRN ×2 (10:06→17:03)
[2017-01-01] MEDS: Lactobacillus 1 EACH CAP.SPRINK PO SCH ×2 (10:07→21:48)
[2017-01-01] MEDS: Isosorbide MONOnitrate (24 HR) 30 MG TAB.ER.24H PO SCH (10:07)
[2017-01-01] MEDS: metOLazone 5 MG TABLET PO SCH (10:07)
[2017-01-01] MEDS: Gabapentin 300 MG CAPSULE PO SCH ×3 (10:07→21:48)
[2017-01-01] MEDS: Methocarbamol 500 MG TABLET PO SCH ×3 (10:07→21:46)
[2017-01-01] MEDS: *HR* Digoxin 0.25 MG TABLET PO SCH (10:07)
[2017-01-01] MEDS: Insulin LISPRO 300 UNITS/3 ML VIAL SQ SCH ×3 (10:07→17:07)
[2017-01-01] MEDS: hydrOXYzine pamoate 25 MG CAPSULE PO SCH ×3 (10:07→21:48)
[2017-01-01] MEDS: *HR* Glimepiride 2 MG TABLET PO SCH (10:08)
[2017-01-01] MEDS: Nystatin POWDER 30 GM BOTTLE TP SCH ×2 (10:29→21:49)
[2017-01-01] MEDS ORDERED: D5% in Water 100 ML ONE (21:30)
[2017-01-02] MEDS: 0.9 % Sodium Chloride 1,000 ML IVC SCH ×2 (03:15→13:47)
[2017-01-02] MEDS: Insulin LISPRO 300 UNITS/3 ML VIAL SQ SCH ×5 (03:19→21:22)
[2017-01-02 06:50] LABS: Basophils # 0.1 K/mcL (0.0-0.2); Basophils % 0.3 %; Eosinophils % 0.2 %; Hemoglobin 12.1 g/dL (11.5-15.4); Lymphocytes # 1.8 K/mcL (0.6-4.6); Lymphocytes % 10.4 %; Mean Corpuscular HGB Conc 32.7 g/dL (31.6-35.5); Mean Corpuscular Hemoglobin 28.5 pg (28.0-33.3); Mean Corpuscular Volume 87.3 fL (83.0-100.0); Monocytes # 1.4 K/mcL (0.0-1.3); Monocytes % 8.4 %; Neutrophils # 13.7 K/mcL (1.6-8.9); Platelet Count 114 K/mcL (140-400); Red Blood Count 4.24 M/mcL (3.82-4.97); Red Cell Distribution Width 18.7 % (11.5-14.5); Segmented Neutrophils % 79.7 %
[2017-01-02 06:57] LABS: Albumin 2.5 g/dL (3.5-5.0); BUN/Creatinine Ratio 37 (6-26); Blood Urea Nitrogen 38 mg/dL (7-20); Calcium 8.5 mg/dL (8.6-10.8); Carbon Dioxide 21 mEq/L (19-29); Chloride 100 mEq/L (98-109); Glucose 81 mg/dL (70-99); Osmolality,Calculated 286 (280-300); Phosphorous 3.5 mg/dL (2.3-4.7); Potassium 4.4 mEq/L (3.5-4.5); Sodium 134 mEq/L (136-145); eGFR For African Americans > 60 (> 60); eGFR For Non-African Americans 54 (> 60)
[2017-01-02] MEDS: *HR* Digoxin 0.25 MG TABLET PO SCH (08:06)
[2017-01-02] MEDS: *HR* Glimepiride 2 MG TABLET PO SCH (08:08)
[2017-01-02] MEDS: *HR* OxyCODONE/APAP 10/325 TABLET PO PRN ×3 (08:19→21:27)
[2017-01-02] MEDS: metOLazone 5 MG TABLET PO SCH (08:20)
[2017-01-02] MEDS ORDERED: *HR* Digoxin 0.25 MG TABLET PO ONE (08:20)
[2017-01-02] MEDS: Methocarbamol 500 MG TABLET PO SCH ×3 (08:21→21:21)
[2017-01-02] MEDS: hydrOXYzine pamoate 25 MG CAPSULE PO SCH ×3 (08:22→21:20)
[2017-01-02] MEDS: Isosorbide MONOnitrate (24 HR) 30 MG TAB.ER.24H PO SCH (08:22)
[2017-01-02] MEDS: Lactobacillus 1 EACH CAP.SPRINK PO SCH ×2 (08:22→21:20)
[2017-01-02] MEDS: Gabapentin 300 MG CAPSULE PO SCH ×3 (08:22→21:20)
[2017-01-02] MEDS: Nystatin POWDER 30 GM BOTTLE TP SCH ×2 (08:26→21:22)
--- NOTE | 2017-01-02 09:51 | Internal Med Progress Note ---
Date of Encounter: 01/02/17 Time of Encounter: 09:35 - Assessment and plan (1) Sepsis secondary to UTI Current Visit: Yes Status: Acute Assessment and plan: January 02. Urine culture shows group B strep. Continue Rocephin and lactobacillus. (2) Atrial fibrillation Current Visit: No Status: Acute Assessment and plan: January 02. Continue Lanoxin, metoprolol, and oral verapamil. She was placed on a Cardizem drip last night but this has been discontinued. Qualifiers: Atrial fibrillation type: unspecified Qualified Code(s): I48.91 - Unspecified atrial fibrillation (3) DM type 2 (diabetes mellitus, type 2) Current Visit: No Status: Chronic Assessment and plan: January 02. Continue Amaryl and Accu-Cheks with SSI. We will check hemoglobin A1c in a.m. Qualifiers: Diabetes mellitus complication status: without complication Diabetes mellitus continuous churn buttermaker insulin use: without continuous churn buttermaker use Qualified Code(s): E11.9 - Type 2 diabetes mellitus without complications (4) Acute renal failure Current Visit: Yes Status: Acute Assessment and plan: January 02. Improving. Continue present management Qualifiers: Acute renal failure type: unspecified Qualified Code(s): N17.9 - Acute kidney failure, unspecified - Subjective Interval history: January 02. She has no new complaints and feels improved. - Constitutional Vitals: Temp Pulse Resp BP Pulse Ox 98.2 F 101 18 89/50 93 01/02/17 07:01 01/02/17 09:13 01/02/17 09:13 01/02/17 09:13 01/02/17 07:42 Exam: She is sitting in a chair at bedside and appears in no acute distress. Her affect is cheerful. Her heart is irregularly irregular with rate approximately 84/m. Lungs are clear. Extremities show no edema. I reviewed her medications , lab results, and past records. Internal Medicine: Result - Labs CBC & Chem 7: 01/02/17 05:40 01/02/17 05:40 Labs: Short CBC 01/02/17 Range/Units 05:40 WBC 17.2 H (4.3-11.1) K/mcL Hgb 12.1 (11.5-15.4) g/dL Hct 37.0 (35.3-44.9) % Plt Count 114 L (140-400) K/mcL Neutrophils # 13.7 H (1.6-8.9) K/mcL BMP 01/02/17 05:40 Sodium 134 L Potassium 4.4 Chloride 100 Carbon Dioxide 21 BUN 38 H Creatinine 1.04 Glucose 81 Calcium 8.5 L Liver Function 01/02/17 Range/Units 05:40 Albumin 2.5 L (3.5-5.0) g/dL Consult Discharge Plan - Plan Referrals: Maria Luz Bonner, [employer] [Primary Care Provider] - 1 week
[2017-01-02] MEDS ORDERED: *HR* Digoxin 0.25 MG TABLET PO SCH (10:01)
--- NOTE | 2017-01-02 13:36 | Electrocardiograph Report ---
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
--- NOTE | 2017-01-02 16:23 | Electrocardiograph Report ---
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
[2017-01-02] MEDS ORDERED: *HR* Rivaroxaban 10 MG TABLET PO SCH (17:00)
[2017-01-03 06:32] VITALS: BP 113/65
[2017-01-03 06:35] LABS: Basophils % 0.3 %; Eosinophils # 0.1 K/mcL (0.0-0.6); Eosinophils % 1.4 %; Hematocrit 38.1 % (35.3-44.9); Hemoglobin 12.2 g/dL (11.5-15.4); Immature Granulocytes % 0.7 % (0-4); Lymphocytes # 1.5 K/mcL (0.6-4.6); Lymphocytes % 17.4 %; Mean Corpuscular Hemoglobin 28.2 pg (28.0-33.3); Mean Platelet Volume 13.2 fL (9.4-12.4); Monocytes # 0.7 K/mcL (0.0-1.3); Monocytes % 7.5 %; Neutrophils # 6.4 K/mcL (1.6-8.9); Platelet Count 105 K/mcL (140-400); Red Blood Count 4.33 M/mcL (3.82-4.97); Red Cell Distribution Width 18.4 % (11.5-14.5); Segmented Neutrophils % 72.7 %
[2017-01-03 06:53] LABS: BUN/Creatinine Ratio 41 (6-26); Blood Urea Nitrogen 30 mg/dL (7-20); Carbon Dioxide 22 mEq/L (19-29); Chloride 101 mEq/L (98-109); Glucose 71 mg/dL (70-99); Magnesium 1.8 mg/dL (1.6-2.6); Osmolality,Calculated 285 (280-300); Potassium 4.5 mEq/L (3.5-4.5); Sodium 135 mEq/L (136-145); eGFR For African Americans > 60 (> 60); eGFR For Non-African Americans > 60 (> 60)
[2017-01-03 07:17] LABS: Anisocytosis 1+ (Not Present); Rouleaux Present (Not Present)
[2017-01-03] MEDS: Insulin LISPRO 300 UNITS/3 ML VIAL SQ SCH (07:45)
[2017-01-03] MEDS: Lactobacillus 1 EACH CAP.SPRINK PO SCH (07:46)
[2017-01-03] MEDS: *HR* Glimepiride 2 MG TABLET PO SCH (07:46)
[2017-01-03] MEDS: Isosorbide MONOnitrate (24 HR) 30 MG TAB.ER.24H PO SCH (07:46)
[2017-01-03] MEDS: Gabapentin 300 MG CAPSULE PO SCH (07:47)
[2017-01-03] MEDS: metOLazone 5 MG TABLET PO SCH (07:47)
[2017-01-03] MEDS: hydrOXYzine pamoate 25 MG CAPSULE PO SCH (07:48)
[2017-01-03] MEDS: Methocarbamol 500 MG TABLET PO SCH (07:48)
[2017-01-03] MEDS: Nystatin POWDER 30 GM BOTTLE TP SCH (07:49)
[2017-01-03] MEDS: Acetaminophen 325 MG TABLET PO PRN (07:56)
--- NOTE | 2017-01-03 09:39 | Discharge Summary ---
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: without retirement use Qualified Code(s): E11.9 - Type 2 diabetes mellitus without complications (4) Acute renal failure Priority: Secondary Status: Resolved Qualifiers: Acute renal failure type: unspecified Qualified Code(s): N17.9 - Acute kidney failure, unspecified - Discharge Medications Prescriptions: cephALEXin [Keflex] 500 mg PO TID #6 capsule Digoxin [Lanoxin] 0.375 mg PO DAILY #45 tab Lactobacillus [Culturelle] 1 each PO BID #4 Home Medications: Aspirin [Lo-Dose Aspirin EC] 81 mg PO DAILY 01/18/16 [History] Calcium Carbonate [Calcium] 600 mg PO DAILY 01/18/16 [History] Losartan [Cozaar] 25 mg PO DAILY 01/18/16 [History] Methocarbamol [Robaxin-750] 750 mg PO TID 01/18/16 [History] OxyCODONE/APAP 10/325 [Percocet 10/325 MG] 1 each PO Q6HR PRN 01/18/16 [History] Saxagliptin HCl [Onglyza] 5 mg PO DAILY 01/18/16 [History] Sertraline [Zoloft] 25 mg PO DAILY 01/18/16 [History] Metoprolol [Lopressor] 50 mg PO BID #60 tablet 01/20/16 [Rx] Verapamil ER (24 HR) [Calan SR] 180 mg PO DAILY #30 tablet.er 01/20/16 [Rx] Bumetanide [Bumex] 1 mg PO DAILY #30 tablet 02/15/16 [Rx] Albuterol Sulfate [Albuterol Inhaler] 2 puff IH Q4HR PRN #0 03/31/16 [Rx] Gabapentin [Neurontin] 300 mg PO TID 07/06/16 [History] Glimepiride [Amaryl] 4 mg PO QDPC 07/06/16 [History] Methotrexate [Otrexup] 2.5 mg PO QWEEK 07/06/16 [History] Pantoprazole Sodium 40 mg PO QDPC 07/06/16 [History] hydrOXYzine HCl [Hydroxyzine HCl] 25 mg PO TID 07/06/16 [History] metOLazone [Zaroxolyn] 2.5 mg PO DAILY 07/06/16 [History] Cetirizine HCl [All Day Allergy] 10 mg PO QDPC PRN #0 07/07/16 [Rx] Isosorbide MONOnitrate (24 HR) [Imdur] 30 mg PO DAILY #30 tab.er.24h 07/24/16 [ Rx] Potassium Chloride [Klor-Con Sprinkle] 30 meq PO Q12H #180 capsule.er 07/24/16 [ Rx] Digoxin [Lanoxin] 0.375 mg PO DAILY #45 tab 01/03/17 [Rx] Lactobacillus [Culturelle] 1 each PO BID #4 01/03/17 [Rx] cephALEXin [Keflex] 500 mg PO TID #6 capsule 01/03/17 [Rx] Allergies/Adverse Reactions: Allergies lisinopril Adverse Reaction (Verified 09/21/16 10:54) Cough morphine Adverse Reaction (Verified 09/21/16 10:54) Nausea Penicillins Adverse Reaction (Verified 09/21/16 10:54) Nausea ranitidine [From Zantac] Adverse Reaction (Verified 09/21/16 10:54) Diarrhea Date of admission: 01/02/17 18:51 Primary care physician: Maria Luz Bonner CNP - Patient Status Disposition: Home, Self-Care Condition: Fair Functional capacity at discharge: uses cane/walker Overall status at discharge: patient is progressing back to baseline - Discharge Instructions Follow Up With: Maria Luz Bonner CNP [Primary Care Provider] - 1 week - Diet and Activity Activity: resume usual activities as tolerated Diet: advance to your usual diet Hospital course: Ms. Ocampo is a 61 year old female who presented to emergency room December 31 with complaints of chest discomfort, weakness, and evidence of urosepsis. Initial orders were written by the emergency room physician. Dr. Aryan Penny saw her January 01 and performed the history and physical. She was started empirically on Rocephin. Urine culture returned showing group B strep. The leukocytosis and left shift resolved by the day of discharge. She remained afebrile the last 24 hours of hospitalization. She will continue with Keflex and probiotic for 2 additional days after discharge. She developed AF with RVR and was placed on a Cardizem drip briefly. I increased her dose of Lanoxin and she returned to normal sinus rhythm. She will continue the higher dose Lanoxin at discharge. I will let her PCP monitor this and decide if OAC is needed. Her azotemia resolved with creatinine decreasing to 0.74 by the day of discharge. On January 03 she felt improved and stable for discharge home. She will follow with her PCP within one week. I encouraged her strongly to stop smoking. She has supplemental oxygen in the home. - Time Spent with Patient Total time spent providing and/or coordinating discharge services: - Constitutional Vitals: Temp Pulse Resp BP Pulse Ox 97.6 F 70 18 113/65 98 01/03/17 06:31 01/03/17 06:31 01/03/17 06:31 01/03/17 06:31 01/03/17 08:00
[2017-01-03 09:53] LABS: Hemoglobin A1C 5.9 %
--- NOTE | 2017-01-03 10:10 | Physician Discharge Referral ---
Home Health/Hosp Referral Info Transfer to: Home Health Attending Provider: Quinn Provider in Charge Post Discharge: PCP (Maria Luz Bonner CNP) - Diagnosis (1) Sepsis secondary to UTI Priority: Primary Status: Acute (2) Atrial fibrillation Priority: Secondary Status: Resolved (3) DM type 2 (diabetes mellitus, type 2) Priority: Secondary Status: Chronic (4) Acute renal failure Priority: Secondary Status: Resolved - Respiratory Orders Oxygen / L per min (2 L/m by nasal cannula 02/01.) Smoking Cessation: Smoking cessation has been advised. For more information, call the [place] Tobacco Quit Line at 5-081-YWRA-NOW. - Activity Activity Orders: Ambulate - Services Needed Following services are medically necessary services: Nursing, Home Health Aide, Physical Therapy, Occupational Therapy - Transfer Medications Prescriptions: cephALEXin [Keflex] 500 mg PO TID #6 capsule Digoxin [Lanoxin] 0.375 mg PO DAILY #45 tab Lactobacillus [Culturelle] 1 each PO BID #4 Home Medications: Aspirin [Lo-Dose Aspirin EC] 81 mg PO DAILY 01/18/16 [History] Calcium Carbonate [Calcium] 600 mg PO DAILY 01/18/16 [History] Losartan [Cozaar] 25 mg PO DAILY 01/18/16 [History] Methocarbamol [Robaxin-750] 750 mg PO TID 01/18/16 [History] OxyCODONE/APAP 10/325 [Percocet 10/325 MG] 1 each PO Q6HR PRN 01/18/16 [History] Saxagliptin HCl [Onglyza] 5 mg PO DAILY 01/18/16 [History] Sertraline [Zoloft] 25 mg PO DAILY 01/18/16 [History] Metoprolol [Lopressor] 50 mg PO BID #60 tablet 01/20/16 [Rx] Verapamil ER (24 HR) [Calan SR] 180 mg PO DAILY #30 tablet.er 01/20/16 [Rx] Bumetanide [Bumex] 1 mg PO DAILY #30 tablet 02/15/16 [Rx] Albuterol Sulfate [Albuterol Inhaler] 2 puff IH Q4HR PRN #0 03/31/16 [Rx] Gabapentin [Neurontin] 300 mg PO TID 07/06/16 [History] Glimepiride [Amaryl] 4 mg PO QDPC 07/06/16 [History] Methotrexate [Otrexup] 2.5 mg PO QWEEK 07/06/16 [History] Pantoprazole Sodium 40 mg PO QDPC 07/06/16 [History] hydrOXYzine HCl [Hydroxyzine HCl] 25 mg PO TID 07/06/16 [History] metOLazone [Zaroxolyn] 2.5 mg PO DAILY 07/06/16 [History] Cetirizine HCl [All Day Allergy] 10 mg PO QDPC PRN #0 07/07/16 [Rx] Isosorbide MONOnitrate (24 HR) [Imdur] 30 mg PO DAILY #30 tab.er.24h 07/24/16 [ Rx] Potassium Chloride [Klor-Con Sprinkle] 30 meq PO Q12H #180 capsule.er 07/24/16 [ Rx] Digoxin [Lanoxin] 0.375 mg PO DAILY #45 tab 01/03/17 [Rx] Lactobacillus [Culturelle] 1 each PO BID #4 01/03/17 [Rx] cephALEXin [Keflex] 500 mg PO TID #6 capsule 01/03/17 [Rx] Allergies/Adverse Reactions: Allergies lisinopril Adverse Reaction (Verified 09/21/16 10:54) Cough morphine Adverse Reaction (Verified 09/21/16 10:54) Nausea Penicillins Adverse Reaction (Verified 09/21/16 10:54) Nausea ranitidine [From Zantac] Adverse Reaction (Verified 09/21/16 10:54) Diarrhea Certification: Further, I certify that my clinical findings support that this patient is homebound (i.e. absences from home require considerable and taxing effort and are for medical reasons or protestant services or infrequently or short duration when for other reasons) because: Homebound Reason: Leaving home requires considerable and taxing effort due to condition (COPD, morbid obesity) Attestation: My signature below is to certify that this patient is under my care and that I, or nurse practitioner, or a physician's floral assistant working with me, has a face-to -face encounter with this patient.
== END 2017-01-03 11:18 | disposition home health service (06) | DRG 872 ==
LOC: INPPIK 15:20 → EMEROOPIK 15:20 → INPPIK 17:56
PROVIDERS: ADMIT Internal Medicine; ATTEND Internal Medicine

== ENCOUNTER 2018-01-13 22:23 | Inpatient (IN) ==
--- NOTE | 2018-01-13 22:26 | Emergency Department Note ---
Disposition Clinical Impression: Acute exacerbation of chronic obstructive airways disease, Hypoglycemia, Delirium due to general medical condition Acute and chronic respiratory failure Qualifiers: Respiratory failure complication: hypoxia and hypercapnia Qualified Code(s): J96.21 - Acute and chronic respiratory failure with hypoxia Disposition: Admitted As Inpatient Condition: Fair Time of Disposition: 00:04 Altered Mental Status HPI - General Chief Complaint: ED Altered Mental Status Stated Complaint: low blood sugar Time Seen by Provider: 01/13/18 22:25 Source: patient, family, EMS Mode of arrival: EMS Limitations: altered mental status, physical limitation Nursing Notes Reviewed: Yes Vital Signs Reviewed: Yes - History of Present Illness HPI Narrative: Patient reportedly has been less responsive. Squad arrived they found her to be hypoglycemic with a blood sugar of 43. They note that she had recently been discharged history of some acute on chronic COPD with some chronic respiratory failure. Squad administered half amp of D50 and states her mental status did improve. She was saturating at 89% on her home 2 L and they placed her on 4 L. On arrival here she is answering questions and states that she feels awful but cannot otherwise all lab read. She states she has had her normal foods and medicines. Her family has reported that she is "noncompliant". She is complaining of pain in her bottom and back which sounds to be chronic. She denies any chest pain, palpitations, cough or abdominal pain. She denies a feeling of shortness of breath at this time. She still seems sleepy and distant. She has had a repeat Accu-Chek of 79. The patient is a very poor historian at this time. 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 Denies: chest pain, diaphoresis, fever, chills, headaches, nausea/vomiting, rash, seizure, syncope, foul smelling urine , diarrhea, incontinence Treatments prior to arrival: glucose, IV fluid, oxygen, EMS treatment/medication - Related Data Home Medications Medication Instructions Recorded Confirmed Calcium Carbonate [Calcium] 600 mg PO DAILY 01/18/16 12/28/17 Losartan [Cozaar] 25 mg PO DAILY 01/18/16 12/28/17 OxyCODONE/APAP 10/325 [Percocet 1 each PO Q6HR PRN 01/18/16 12/28/17 10/325 MG] Saxagliptin HCl [Onglyza] 5 mg PO DAILY 01/18/16 12/28/17 Sertraline [Zoloft] 25 mg PO DAILY 01/18/16 12/28/17 Glimepiride [Amaryl] 4 mg PO QDPC 07/06/16 12/28/17 hydrOXYzine HCl [Hydroxyzine HCl] 25 mg PO TID 07/06/16 12/28/17 Aspirin [Lo-Dose Aspirin EC] 81 mg PO DAILY 12/28/17 12/28/17 Budesonide/Formoterol 160/4.5 2 puff IH BID 12/28/17 12/28/17 [Symbicort 160/4.5] Potassium Chloride [Klor-Con 30 meq PO TID 12/28/17 12/28/17 Sprinkle] Rivaroxaban [Xarelto] 20 mg PO DAILY 12/28/17 12/28/17 Previous Rx's Medication Instructions Recorded Albuterol Sulfate [Albuterol 2 puff IH Q4HR PRN #0 03/31/16 Inhaler] Cetirizine HCl [All Day Allergy] 10 mg PO QDPC PRN #0 07/07/16 Isosorbide MONOnitrate (24 HR) 60 mg PO DAILY #30 tab.er.24h 10/05/17 [Imdur] Pantoprazole Sodium 40 mg PO QDPC PRN #0 10/05/17 Bumetanide [Bumex] 1 mg PO BID 30 Days #60 tablet 01/05/18 Metoprolol XL (24 HR) Succ [Toprol 100 mg PO BID 30 Days #60 01/05/18 Xl] tab.er.24h Ascorbic Acid [C-500] 500 mg PO DAILY #30 tablet 01/11/18 Ferrous Sulfate 325 mg PO DAILY #30 tablet 01/11/18 Gabapentin [Neurontin] 600 mg PO BID #0 01/11/18 Allergies Allergy/AdvReac Type Severity Reaction Status Date / Time lisinopril AdvReac Cough Verified 12/27/17 20:48 morphine AdvReac Nausea Verified 12/27/17 20:48 Penicillins AdvReac Nausea Verified 12/27/17 20:48 ranitidine [From Zantac] AdvReac Diarrhea Verified 12/27/17 20:48 All systems ED: reviewed and negative except as stated. Past Medical History - Past Medical History Attestation: Yes The following information was validated with the patient. Source: patient, old records reviewed, obtained from family, nursing notes reviewed Medical history: Reports: arthritis, atrial fibrillation (On anticoagulation), cancer (History of breast cancer status post mastectomy on the right), CHF ( Diastolic), COPD (CO2 retention), coronary artery disease (Status post [place]), CVA (No residual), diabetes (Type 2), GERD, hyperlipidemia, hypertension, migraine, myocardial infarction, osteoporosis, other (Chronic low back pain, anemia) Surgical history: Reports: appendectomy, breast surgery, , cancer surgery (Right mastectomy), hysterectomy, knee replacement (Left), other Psychiatric history: Reports: anxiety, depression 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 If you wants help in the future, please ask your provider.) Smokeless Tobacco Status: No Alcohol use: Reports: none Drug use: Reports: none Physical Exam - General Limitations: altered mental status, physical limitation General appearance: in no apparent distress, other (Somnolent) - Head Head exam: atraumatic, normocephalic, normal inspection - Eye Eye exam: Present: normal appearance, PERRL, EOMI. Absent: scleral icterus, conjunctival injection - ENT ENT exam: normal exam, normal oropharynx, mucous membranes moist - Neck Neck exam: Present: normal inspection, full ROM, trachea midline - Chest Chest inspection: Present: normal inspection, symmetric chest wall rise - Respiratory Respiratory exam: Present: prolonged expiratory phase, other (Patient has relatively shallow nonlabored respirations.). Absent: respiratory distress, wheezes - Cardiovascular Cardiovascular exam: Present: regular rate, normal rhythm, tachycardia, normal heart sounds - Abdominal Exam Abdominal exam: Present: soft, Non-Tender, normal bowel sounds. Absent: tenderness, distention, guarding, rebound, rigidity - Extremities Exam Extremities exam: Present: normal inspection, full ROM, normal capillary refill. Absent: tenderness, pedal edema - Expanded Lower Extremity Exam Neurovascular/Tendon exam: Present: normal capillary refill. Absent: motor deficit, sensory deficit, tendon deficit Gait: not tested/not observed - Neurological Exam Neurological exam: Absent: alert, oriented X3 - Psychiatric Psychiatric exam: Present: flat affect. Absent: agitated, anxious - Skin Skin exam: Present: warm, dry, intact, normal color. Absent: rash, cyanosis, diaphoresis, pallor Course Course Narrative: 2329: Care is discussed with the family and Dr. Ball. Dr. Ball would like her started on antibiotic and steroid for her COPD and CO2 retention. She is started on some Levaquin and a bolus of Solu-Medrol. X-ray has had palpitations with their portable x-ray and we are still working on a chest x- ray. The plan is for inpatient placement for continued stabilization on her BiPAP with COPD protocol. Vital Signs Pulse Rate 106 01/13/18 22:25 Respiratory Rate 18 01/13/18 22:25 Blood Pressure 116/41 01/13/18 22:25 O2 Sat by Pulse Oximetry 82 01/13/18 22:25 Temperature 98.6 F 01/13/18 22:30 Pulse Rate 105 01/13/18 22:51 Respiratory Rate 15 01/13/18 22:51 Blood Pressure 144/64 01/13/18 22:51 O2 Sat by Pulse Oximetry 90 01/13/18 22:40 Oxygen Delivery Oxygen Delivery Nasal Cannula Altered Mental Status - Differential Diagnosis Likely: altered mental status (CO2 retention), hypoglycemia, substance use - Lab Data Lab results reviewed: Yes I reviewed the patient's lab results. Result diagrams: 01/13/18 22:42 01/13/18 22:42 Lab Results 01/13/18 01/13/18 01/13/18 Range/Units 22:42 22:42 22:42 WBC 20.8 H D (4.3-11.1) K/mcL RBC 4.68 (3.82-4.97) M/mcL Hgb 9.7 L (11.5-15.4) g/dL Hct 36.5 (35.3-44.9) % MCV 78.0 L (83.0-100.0) fL MCH 20.7 L (28.0-33.3) pg MCHC 26.6 L (31.6-35.5) g/dL RDW 21.1 H (11.5-14.5) % Plt Count 153 (140-400) K/mcL Seg Neutrophils % 70.0 % Band Neutrophils % 18.0 H (0-4) % Lymphocytes % 8.0 % Monocytes % 4.0 % Neutrophils # 18.3 H (1.6-8.9) K/mcL Lymphocytes # 1.7 (0.6-4.6) K/mcL Monocytes # 0.8 (0.0-1.3) K/mcL Platelet Estimate Normal (Normal) Hypochromasia Present A (Not Present) Anisocytosis 2+ A (Not Present) Microcytosis Present A (Not Present) PT (9.4-12.1) Seconds INR APTT (26.0-36.0) Seconds VBG pH (7.32-7.42) pH Units VBG pCO2 (41-51) mmHg VBG pO2 (25-50) mmHg VBG HCO3 (21-27) mEq/L Sodium 140 (136-145) mEq/L Potassium 3.3 L (3.5-5.1) mEq/L Chloride 93 L (98-107) mEq/L Carbon Dioxide 40 H* (23-29) mEq/L BUN 18 (8-23) mg/dL Creatinine 1.03 (0.60-1.20) mg/dL Est GFR ( Amer) > 60 (> 60) Est GFR (Non-Af Amer) 54 L (> 60) BUN/Creatinine Ratio 17 (6-26) Glucose 62 L (70-105) mg/dL Calculated Osmolality 290 (280-300) Calcium 8.6 (8.6-10.3) mg/dL Total Bilirubin 1.0 (0.3-1.0) mg/dL Direct Bilirubin 0.4 H (0.0-0.2) mg/dL Indirect Bilirubin 0.6 (0.0-1.2) mg/dL AST 14 (13-39) Units/L ALT 13 (7-52) Units/L Alkaline Phosphatase 59 (34-104) Units/L B-Natriuretic Peptide (Less than 100) pg/mL Serum Total Protein 6.4 (6.4-8.9) g/dL Albumin 3.2 L (3.5-5.7) g/dL Globulin 3.2 (2.4-3.5) g/dL Albumin/Globulin Ratio 1.0 L (1.1-2.2) Person Notif of Crit 01/13/18 01/13/18 01/13/18 Range/Units 22:42 22:42 22:49 WBC (4.3-11.1) K/mcL RBC (3.82-4.97) M/mcL Hgb (11.5-15.4) g/dL Hct (35.3-44.9) % MCV (83.0-100.0) fL MCH (28.0-33.3) pg MCHC (31.6-35.5) g/dL RDW (11.5-14.5) % Plt Count (140-400) K/mcL Seg Neutrophils % % Band Neutrophils % (0-4) % Lymphocytes % % Monocytes % % Neutrophils # (1.6-8.9) K/mcL Lymphocytes # (0.6-4.6) K/mcL Monocytes # (0.0-1.3) K/mcL Platelet Estimate (Normal) Hypochromasia (Not Present) Anisocytosis (Not Present) Microcytosis (Not Present) PT 18.7 H (9.4-12.1) Seconds INR 1.7 APTT 44.0 H (26.0-36.0) Seconds VBG pH 7.33 (7.32-7.42) pH Units VBG pCO2 82 H* (41-51) mmHg VBG pO2 44 (25-50) mmHg VBG HCO3 43 H (21-27) mEq/L Sodium (136-145) mEq/L Potassium (3.5-5.1) mEq/L Chloride (98-107) mEq/L Carbon Dioxide (23-29) mEq/L BUN (8-23) mg/dL Creatinine (0.60-1.20) mg/dL Est GFR ( Amer) (> 60) Est GFR (Non-Af Amer) (> 60) BUN/Creatinine Ratio (6-26) Glucose (70-105) mg/dL Calculated Osmolality (280-300) Calcium (8.6-10.3) mg/dL Total Bilirubin (0.3-1.0) mg/dL Direct Bilirubin (0.0-0.2) mg/dL Indirect Bilirubin (0.0-1.2) mg/dL AST (13-39) Units/L ALT (7-52) Units/L Alkaline Phosphatase (34-104) Units/L B-Natriuretic Peptide 320 H (Less than 100) pg/mL Serum Total Protein (6.4-8.9) g/dL Albumin (3.5-5.7) g/dL Globulin (2.4-3.5) g/dL Albumin/Globulin Ratio (1.1-2.2) Person Notif of Neo Sharma RN - Radiology Data Radiology results reviewed: Yes I reviewed the patient's radiology results. Impressions Chest X-Ray 01/13/18 22:31 IMPRESSION: Bibasilar atelectasis and/or pneumonia. D/ / Peng Spring MD / Peng Spring MD Interpreting Provider: Peng Spring MD Checklist - LKW: 3-4.5 hrs Add. Warnings/Precautions Patient/family understanding: The patient/family members have been counseled and understood the risk, benefit , and alternatives of treatment.
[2018-01-13] MEDS ORDERED: *HR* Dextrose 50 % in Water (Syg) 50 ML SYRINGE IVP ONE (22:33)
[2018-01-13 22:52] LABS: Hematocrit 36.5 % (35.3-44.9); Hemoglobin 9.7 g/dL (11.5-15.4); Mean Corpuscular HGB Conc 26.6 g/dL (31.6-35.5); Mean Corpuscular Hemoglobin 20.7 pg (28.0-33.3); Platelet Count 153 K/mcL (140-400); Red Blood Count 4.68 M/mcL (3.82-4.97); Red Cell Distribution Width 21.1 % (11.5-14.5)
[2018-01-13 22:57] LABS: VBG HCO3 43 mEq/L (21-27); VBG PCO2 82 mmHg (41-51); VBG PH 7.33 pH Units (7.32-7.42); VBG PO2 44 mmHg (25-50)
[2018-01-13 23:00] LABS: INR 1.7; Prothrombin Time 18.7 Seconds (9.4-12.1)
[2018-01-13 23:11] LABS: Albumin 3.2 g/dL (3.5-5.7); Bilirubin,Direct 0.4 mg/dL (0.0-0.2); Bilirubin,Indirect 0.6 mg/dL (0.0-1.2); Globulin 3.2 g/dL (2.4-3.5); Total Protein 6.4 g/dL (6.4-8.9)
[2018-01-13 23:16] LABS: Lymphocytes # 1.7 K/mcL (0.6-4.6); Monocytes # 0.8 K/mcL (0.0-1.3); Neutrophils # 18.3 K/mcL (1.6-8.9)
[2018-01-13 23:19] LABS: Anisocytosis 2+ (Not Present); Hypochromasia Present (Not Present)
[2018-01-13 23:20] LABS: Microcytosis Present (Not Present)
[2018-01-13 23:21] LABS: Platelet Estimate Normal (Normal)
[2018-01-13 23:25] LABS: BUN/Creatinine Ratio 17 (6-26); Blood Urea Nitrogen 18 mg/dL (8-23); Calcium 8.6 mg/dL (8.6-10.3); Carbon Dioxide 40 mEq/L (23-29); Chloride 93 mEq/L (98-107); Glucose 62 mg/dL (70-105); Osmolality,Calculated 290 (280-300); Potassium 3.3 mEq/L (3.5-5.1); Sodium 140 mEq/L (136-145); eGFR For African Americans > 60 (> 60); eGFR For Non-African Americans 54 (> 60)
[2018-01-13] MEDS ORDERED: Levofloxacin 750 MG/150 ML 750 MG/150 ML BAG IVPB ONE (23:30)
[2018-01-13] MEDS ORDERED: methylPREDNISolone 125 MG/2 ML VIAL IVP ONE (23:30)
[2018-01-14] MEDS ORDERED: Dextrose Gel 15 GM/37.5 ML TUBE PO PRN ×3 (01:53→20:19)
[2018-01-14] MEDS ORDERED: *HR* Dextrose 50 % in Water (Syg) 50 ML SYRINGE IVP PRN (01:53)
[2018-01-14] MEDS ORDERED: Albuterol 2.5 MG/3 ML NEBULIZER IH PRN (01:53)
[2018-01-14] MEDS ORDERED: D5% in Water 1,000 ML IVC PRN ×2 (01:53→20:19)
[2018-01-14] MEDS ORDERED: Naloxone 0.4 MG/ML INJ IVP PRN (01:53)
[2018-01-14] MEDS: 0.9 % Sodium Chloride 1,000 ML IVC SCH ×2 (04:29→14:50)
[2018-01-14] MEDS: Ipratropium/Albuterol Neb 3 ML IH SCH ×2 (04:39→09:27)
[2018-01-14] MEDS ORDERED: predniSONE 20 MG TABLET PO SCH (08:00)
[2018-01-14] MEDS: Insulin LISPRO 300 UNITS/3 ML VIAL SQ SCH ×3 (09:33→16:16)
--- NOTE | 2018-01-14 11:45 | Internal Med History&Physical ---
Date of Encounter: 01/14/18 Time of Encounter: 11:15 Assessment and Plan (1) Neutrophilic leukocytosis Current visit: Yes Status: Acute Possibly due to pneumonia per chest x-ray report. She was given Levaquin in emergency room. Will continue this with lactobacillus. (2) Hypertension Current visit: No Status: Chronic Hold antihypertensive medication since blood pressure borderline low.. Qualifiers: Hypertension type: essential hypertension Qualified Code(s): I10 - Essential (primary) hypertension (3) COPD (chronic obstructive pulmonary disease) Current visit: No Status: Chronic Continue oxygen and aerosols/nebulizers. Qualifiers: COPD type: unspecified COPD Qualified Code(s): J44.9 - Chronic obstructive pulmonary disease, unspecified (4) Hypokalemia Current visit: No Status: Acute She states she has not taken potassium supplement for approximately 2 months. Will restart. (5) Anemia Current visit: No Status: Acute She was given IV iron sucrose during recent swing bed stay for iron deficiency anemia. Recheck labs in a.m. Qualifiers: Anemia type: iron deficiency Iron deficiency anemia type: unspecified iron deficiency Qualified Code(s): D50.9 - Iron deficiency anemia, unspecified (6) Hypoglycemia Current visit: Yes Status: Acute Hold glimepiride and Onglyza for now. (7) Hypomagnesemia Current visit: Yes Status: Acute Magnesium level was 1.5 on 01/09/2018. Recheck in a.m. Internal Medicine - H&P: HPI Chief complaint: Decreased responsiveness Admitted From: Emergency Dept History of present illness: Ms. Ocampo is a 62 year old female who was brought to emergency room after family reported decreased responsiveness. The ER report states squad members found blood sugar 43. She was given one half amp of D50 and improved. She was evaluated in emergency room and found to have leukocytosis with bandemia. She was admitted to [facility] floor for ongoing care needs. She does not recall coming to the hospital. She was discharged from [facility] 2017 after admission 01/05/2018 to swing bed from [facility] hospitalization for respiratory failure with pneumonia and sepsis which required intubation. She remained stable during her swing bed stay. She reports daily blood sugar checks at home are often less than 50 mg percent. She continues to take Onglyza and glimepiride. She was diagnosed with DM 2 approximately 2004. Hemoglobin A1c was 7.1% on 01/09/2018. She has hyperlipidemia but denies thyroid disease. Past Med Surg Social Fam HX - Past Medical History Medical history: arthritis, atrial fibrillation, cancer, CHF, COPD, coronary artery disease, CVA, diabetes, GERD, hyperlipidemia, hypertension, migraine, myocardial infarction, osteoporosis, other Additional medical history: SPINAL STENOSIS with sciatica right worsening left. DISC DEGENERATION IN BACK Psychiatric history: anxiety, depression - Past Surgical History Surgical History: appendectomy, breast surgery, , cancer surgery, hysterectomy, knee replacement, other Additional surgical history: CARPAL TUNEL RELEASE,BREAST CANCER. right elbow sx. masectomy right side. left knee replacement. - Social History Smoking Status: Current every day smoker Smokeless Tobacco Status: No Alcohol use: none Drug use: none - Family History Mother Living Status: Father Living Status: Hx Family Cardiac Disorders: Yes ([place]) Hx Family Endocrine Disorder: Yes Internal Medicine - H&P: Meds Calcium Carbonate [Calcium] 600 mg PO DAILY 01/18/16 [History] Losartan [Cozaar] 25 mg PO DAILY 01/18/16 [History] OxyCODONE/APAP 10/325 [Percocet 10/325 MG] 1 each PO Q6HR PRN 01/18/16 [History] Saxagliptin HCl [Onglyza] 5 mg PO DAILY 01/18/16 [History] Sertraline [Zoloft] 25 mg PO DAILY 01/18/16 [History] Albuterol Sulfate [Albuterol Inhaler] 2 puff IH Q4HR PRN #0 03/31/16 [Rx] Glimepiride [Amaryl] 4 mg PO QDPC 07/06/16 [History] hydrOXYzine HCl [Hydroxyzine HCl] 25 mg PO TID 07/06/16 [History] Cetirizine HCl [All Day Allergy] 10 mg PO QDPC PRN #0 07/07/16 [Rx] Isosorbide MONOnitrate (24 HR) [Imdur] 60 mg PO DAILY #30 tab.er.24h 10/05/17 [ Rx] Pantoprazole Sodium 40 mg PO QDPC PRN #0 10/05/17 [Rx] Aspirin [Lo-Dose Aspirin EC] 81 mg PO DAILY 12/28/17 [History] Budesonide/Formoterol 160/4.5 [Symbicort 160/4.5] 2 puff IH BID 12/28/17 [ History] Potassium Chloride [Klor-Con Sprinkle] 30 meq PO TID 12/28/17 [History] Rivaroxaban [Xarelto] 20 mg PO DAILY 12/28/17 [History] Bumetanide [Bumex] 1 mg PO BID 30 Days #60 tablet 01/05/18 [Rx] Metoprolol XL (24 HR) Succ [Toprol Xl] 100 mg PO BID 30 Days #60 tab.er.24h [Rx] Ascorbic Acid [C-500] 500 mg PO DAILY #30 tablet 01/11/18 [Rx] Ferrous Sulfate 325 mg PO DAILY #30 tablet 01/11/18 [Rx] Gabapentin [Neurontin] 600 mg PO BID #0 01/11/18 [Rx] 3 Allergy/AdvReac Type Severity Reaction Status Date / Time lisinopril AdvReac Cough Verified 12/27/17 20:48 morphine AdvReac Nausea Verified 12/27/17 20:48 Penicillins AdvReac Nausea Verified 12/27/17 20:48 ranitidine [From Zantac] AdvReac Diarrhea Verified 12/27/17 20:48 All Systems PM: A 10-system review of systems was performed and is negative for pertinent findings except as documented above in the HPI. Review of systems: Review of systems from her September 2017 [facility] hospitalization were reviewed and revised as below. General: Her weight has increased from 114.872 kg on 12/31/2016 to 122.016 kg on admission now Cardiovascular: She has history of hypertension. She reports hospitalization from [place] March 2016 at [facility] but does not recall if heart catheter or other intervention was done. She denies DVT or pulmonary embolus. She had an echocardiogram 01/30/2017 which showed LVEF of 60%. There was reported mild diastolic dysfunction of the left ventricle but no significant valvular abnormality seen. Echocardiogram 12/28/2017 was poor quality but showed grossly normal LV systolic function and no obvious significant valvular abnormalities. She had a Regadenoson nuclear test 12/22/2015 which showed no evidence of ischemia or infarct. Respiratory: She smoked from age 5 up to 3 packs per day. She had PFTs 2016 showing FEV1/FVC of 77%. The FVC was 39%. MVV was 34%. RV was 118%. DLCO (corrected) was 33%. Results consistent with severe restrictive lung disease. She wears oxygen at home 02/01. GI: She has had cholecystectomy. She denies disorders of her liver or exocrine pancreas : she denies hematuria or dysuria or kidney stones Neurologic: She denies large distribution strokes or seizures Endocrine: As per history of present illness Hematology/oncology: She had right mastectomy 2005 for breast cancer. This was apparently curative and she denies chemotherapy or XRT post surgery. She had thrombocytopenia in the past which has resolved. She denies other blood disorders or internal malignancies Psychiatric: She has depression but no significant anxiety or other mental health issues Musk skeletal: She has history of gout, DJD, spinal stenosis, and osteoporosis with lumbar compression fractures. - Constitutional Vitals: Temp Pulse Resp BP Pulse Ox 98.5 F 78 18 104/45 96 01/14/18 06:49 01/14/18 09:43 01/14/18 09:28 01/14/18 09:43 01/14/18 09:43 Exam: Gen.: She is a well-developed obese female sitting in a chair at bedside who appears in no acute distress at present time. HEENT: Head is atraumatic and normocephalic. Eyes: EOMI. There is no scleral icterus. Mouth: Mucosa is moist. Neck: Supple and nontender. There is no thyromegaly or adenopathy noted. Heart: Regular without murmurs gallops or ectopics Lungs: No wheezes or crackles are heard. Abdomen: She has a large pannus. Abdomen is nontender to palpation. Exam is limited because she is in the seated position. Extremities: She has 1+ edema of the lower anterior shins and dorsum of feet bilaterally. She has chronic venous stasis changes with pigmentation of the lower legs and feet. Dorsalis pedis and posterior tibial pulses are not palpable. Neurologic: Mental status: She is talkative and a good historian overall. Cranial nerves: Smile is symmetric. Forehead reveals bilaterally. Tongue protrudes midline. EOMI. Motor: There is no pronator drift. Cerebellar: Finger to nose is intact bilaterally. Skin: Warm and dry Internal Med - H&P Results - Labs CBC & Chem 7: 01/13/18 22:42 01/13/18 22:42
[2018-01-14] MEDS ORDERED: Levofloxacin 750 MG/150 ML 750 MG/150 ML BAG IVPB SCH (12:00)
[2018-01-14] MEDS ORDERED: predniSONE 10 MG TABLET PO SCH (12:04)
[2018-01-14 15:42] LABS: Bilirubin,Urine Negative (Negative); Blood,Urine Trace-intact (Negative); Clarity,Urine Clear (Clear); Color,Urine Yellow (Yellow); Glucose,Urine (UA) 250 mg/dL (Normal); Ketones,Urine Negative (Negative); Leukocyte Esterase,Urine Negative (Negative); Nitrite,Urine Negative (Negative); PH,Urine 5.5 pH Units (5.0-8.0); Protein,Urine Negative (Neg-Trace); Urobilinogen,Urine Normal (Normal)
[2018-01-14 15:51] LABS: RBC,Urine 0-3 per hpf (0-3); Squamous Epithelial Cell,Urine Few per lpf (None-Few)
[2018-01-14] MEDS ORDERED: Insulin LISPRO 300 UNITS/3 ML VIAL SQ ONE (21:00)
[2018-01-15 06:09] LABS: Hematocrit 33.6 % (35.3-44.9); Immature Granulocytes % 0.5 % (0-4); Lymphocytes # 0.8 K/mcL (0.6-4.6); Lymphocytes % 8.5 %; Mean Corpuscular HGB Conc 26.8 g/dL (31.6-35.5); Mean Corpuscular Hemoglobin 20.6 pg (28.0-33.3); Mean Corpuscular Volume 76.9 fL (83.0-100.0); Monocytes # 0.6 K/mcL (0.0-1.3); Monocytes % 6.1 %; Neutrophils # 7.9 K/mcL (1.6-8.9); Platelet Count 126 K/mcL (140-400); Red Blood Count 4.37 M/mcL (3.82-4.97); Red Cell Distribution Width 21.2 % (11.5-14.5); Segmented Neutrophils % 84.9 %
[2018-01-15 06:43] LABS: BUN/Creatinine Ratio 24 (6-26); Blood Urea Nitrogen 18 mg/dL (8-23); Calcium 8.6 mg/dL (8.6-10.3); Carbon Dioxide 42 mEq/L (23-29); Chloride 91 mEq/L (98-107); Glucose 125 mg/dL (70-105); Magnesium 1.2 mg/dL (1.6-2.6); Osmolality,Calculated 289 (280-300); Potassium 3.3 mEq/L (3.5-5.1); Sodium 138 mEq/L (136-145); eGFR For African Americans > 60 (> 60); eGFR For Non-African Americans > 60 (> 60)
[2018-01-15 06:46] LABS: Anisocytosis 2+ (Not Present); Microcytosis Present (Not Present); Platelet Estimate Decreased (Normal)
[2018-01-15 06:47] LABS: Large Platelets Present (Not Present)
[2018-01-15 06:49] LABS: Hypochromasia Present (Not Present); Poikilocytosis 1+ (Not Present)
[2018-01-15] MEDS: levoFLOXacin 500 MG TABLET PO SCH (08:10)
[2018-01-15] MEDS: Insulin LISPRO 300 UNITS/3 ML VIAL SQ SCH ×3 (08:12→16:43)
[2018-01-15 09:23] LABS: % Iron Saturation 5 % (15-50); Iron 14 mcg/dL (50-170); Transferrin 210 mg/dL (203-362)
[2018-01-15 09:47] LABS: Ferritin 133 ng/mL (10-120)
--- NOTE | 2018-01-15 10:14 | Internal Med Progress Note ---
Date of Encounter: 01/15/18 Time of Encounter: 10:05 - Assessment and plan (1) Neutrophilic leukocytosis Current Visit: Yes Status: Acute Assessment and plan: January 15. IV became dislodged and could not be restarted. Continue oral Levaquin with lactobacillus. Will add Robitussin. (2) Hypertension Current Visit: No Status: Chronic Assessment and plan: January 15. Remain off antihypertensive medication. Qualifiers: Hypertension type: essential hypertension Qualified Code(s): I10 - Essential (primary) hypertension (3) COPD (chronic obstructive pulmonary disease) Current Visit: No Status: Chronic Assessment and plan: January 15. Continue oxygen and aerosol/nebulizers. Qualifiers: COPD type: unspecified COPD Qualified Code(s): J44.9 - Chronic obstructive pulmonary disease, unspecified (4) Hypokalemia Current Visit: No Status: Acute Assessment and plan: January 15. Unchanged. We will give additional bolus of potassium supplement continue 20 mEq twice a day. (5) Anemia Current Visit: No Status: Acute Assessment and plan: January 15. Iron testing showed iron 14, transferrin saturation 5%, transferrin 210, and ferritin 133. Start ferrous sulfate with vitamin C in a.m. Qualifiers: Anemia type: iron deficiency Iron deficiency anemia type: unspecified iron deficiency Qualified Code(s): D50.9 - Iron deficiency anemia, unspecified (6) Hypoglycemia Current Visit: Yes Status: Acute Assessment and plan: January 15. Resolved with hyperglycemia present. Restart Onglyza. (7) Hypomagnesemia Current Visit: Yes Status: Acute Assessment and plan: January 15. Magnesium level 1.2. Start magnesium supplement. - Subjective Interval history: January 15. She has no new complaints and feels better overall. - Constitutional Vitals: Temp Pulse Resp BP Pulse Ox 99 F 81 24 138/75 96 01/15/18 06:00 01/15/18 06:00 01/15/18 06:00 01/15/18 06:00 01/15/18 06:00 Exam: Her affect is bright and cheerful. She does not appear dyspneic. She is wearing oxygen by nasal cannula. I reviewed her medications. I reviewed pertinent lab results with her. Internal Medicine: Result - Labs CBC & Chem 7: 01/15/18 05:50 01/15/18 05:50 Labs: Short CBC 01/15/18 Range/Units 05:50 WBC 9.3 D (4.3-11.1) K/mcL Hgb 9.0 L (11.5-15.4) g/dL Hct 33.6 L (35.3-44.9) % Plt Count 126 L (140-400) K/mcL Neutrophils # 7.9 (1.6-8.9) K/mcL BMP 01/15/18 05:50 Sodium 138 Potassium 3.3 L Chloride 91 L Carbon Dioxide 42 H* BUN 18 Creatinine 0.76 Glucose 125 H Calcium 8.6 Urine 01/14/18 Range/Units 15:25 Urine Color Yellow (Yellow) Urine Clarity Clear (Clear) Urine pH 5.5 (5.0-8.0) pH Units Ur Specific Burton 1.010 (1.010-1.025) Urine Protein Negative (Neg-Trace) mg/dL Urine Glucose (UA) 250 H (Normal) mg/dL - ABG Interpretation ABG results: PT/INR, D-dimer PT 18.7 Seconds (9.4-12.1) H 01/13/18 22:42 - VTE Documentation of Mechanical Device: Graduated compression elastic hosiery Consult Discharge Plan - Plan Referrals: Maria Luz Bonner, SE[employer] ANAL[employer]IS LABORATORY ASSISTANT [Primary Care Provider] - 1 week
[2018-01-15] MEDS: *HR* OxyCODONE/APAP 5/325 TABLET PO PRN ×3 (11:22→23:53)
[2018-01-15] MEDS: Magnesium Oxide 400 MG TABLET PO SCH ×2 (11:26→20:19)
[2018-01-15] MEDS: *HR* SitaGLIPtin 25 MG TABLET PO SCH (16:44)
[2018-01-16] MEDS: *HR* OxyCODONE/APAP 5/325 TABLET PO PRN (05:57)
[2018-01-16] MEDS ORDERED: Ascorbic Acid 500 MG TABLET PO SCH (06:30)
[2018-01-16 07:11] LABS: BUN/Creatinine Ratio 15 (6-26); Blood Urea Nitrogen 12 mg/dL (8-23); Calcium 8.7 mg/dL (8.6-10.3); Carbon Dioxide 39 mEq/L (23-29); Chloride 93 mEq/L (98-107); Glucose 80 mg/dL (70-105); Magnesium 1.4 mg/dL (1.6-2.6); Osmolality,Calculated 283 (280-300); Potassium 3.9 mEq/L (3.5-5.1); Sodium 137 mEq/L (136-145); eGFR For African Americans > 60 (> 60); eGFR For Non-African Americans > 60 (> 60)
[2018-01-16 07:13] LABS: Basophils % 0.3 %; Eosinophils # 0.1 K/mcL (0.0-0.6); Eosinophils % 0.9 %; Hematocrit 35.2 % (35.3-44.9); Hemoglobin 9.4 g/dL (11.5-15.4); Immature Granulocytes % 0.3 % (0-4); Lymphocytes # 1.6 K/mcL (0.6-4.6); Lymphocytes % 20.1 %; Mean Corpuscular HGB Conc 26.7 g/dL (31.6-35.5); Mean Corpuscular Hemoglobin 20.8 pg (28.0-33.3); Mean Corpuscular Volume 77.7 fL (83.0-100.0); Monocytes # 0.6 K/mcL (0.0-1.3); Monocytes % 7.7 %; Neutrophils # 5.5 K/mcL (1.6-8.9); Platelet Count 123 K/mcL (140-400); Red Blood Count 4.53 M/mcL (3.82-4.97); Red Cell Distribution Width 21.9 % (11.5-14.5); Segmented Neutrophils % 70.7 %
[2018-01-16] MEDS: Insulin LISPRO 300 UNITS/3 ML VIAL SQ SCH ×2 (07:13→11:30)
[2018-01-16] MEDS: *HR* SitaGLIPtin 25 MG TABLET PO SCH (07:14)
[2018-01-16 07:36] LABS: Anisocytosis 2+ (Not Present); Microcytosis Present (Not Present); Poikilocytosis 1+ (Not Present)
[2018-01-16 07:37] LABS: Platelet Estimate Decreased (Normal)
[2018-01-16 07:38] LABS: Hypochromasia Present (Not Present)
[2018-01-16 07:40] LABS: Large Platelets Present (Not Present)
[2018-01-16] MEDS: Magnesium Oxide 400 MG TABLET PO SCH (08:10)
[2018-01-16] MEDS: levoFLOXacin 500 MG TABLET PO SCH (08:10)
[2018-01-16] MEDS ORDERED: Ondansetron ODT 4 MG TAB.RAPDIS SL ONE (10:35)
[2018-01-16 11:30] VITALS: BP 110/67
--- NOTE | 2018-01-16 13:56 | Discharge Summary ---
Date of Encounter: 01/16/18 Time of Encounter: 12:15 - Discharge Diagnosis (1) Pneumonia Priority: Primary Status: Acute Qualifiers: Pneumonia type: due to unspecified organism Laterality: bilateral Lung location: unspecified part of lung Qualified Code(s): J18.9 - Pneumonia, unspecified organism (2) COPD (chronic obstructive pulmonary disease) Priority: Secondary Status: Chronic Qualifiers: COPD type: unspecified COPD Qualified Code(s): J44.9 - Chronic obstructive pulmonary disease, unspecified (3) Hypertension Priority: Secondary Status: Chronic Qualifiers: Hypertension type: essential hypertension Qualified Code(s): I10 - Essential (primary) hypertension (4) Hypokalemia Priority: Secondary Status: Acute (5) Anemia Priority: Secondary Status: Acute Qualifiers: Anemia type: iron deficiency Iron deficiency anemia type: unspecified iron deficiency Qualified Code(s): D50.9 - Iron deficiency anemia, unspecified (6) Hypoglycemia Priority: Secondary Status: Acute (7) Hypomagnesemia Priority: Secondary Status: Acute Hospital course: Ms. Ocampo is a 62 year old female who was brought to emergency room after family reported decreased responsiveness. The ER report states squad members found blood sugar 43. She was given one half amp of D50 and improved. She was evaluated in emergency room and found to have leukocytosis with bandemia. She was admitted to [facility] floor for ongoing care needs. Initial orders were written by the emergency room physician. I saw her on December 14 and performed the history and physical. She was started on Levaquin in emergency room. She had good clinical response with normalization of WBC and left shift by day of discharge. She will continue with Levaquin for 3 additional days at discharge. Lactobacillus will be given. Supplemental potassium was given and hypokalemia resolved by time of discharge. Labs will be monitored at [facility]. Magnesium level returned low at 1.2. She will be given magnesium oxide for several days at [facility]. Creatinine decreased to 0.81 with estimated GFR rising to 60 per day of discharge. Bumex will be continued at a low dose 0.5 mg daily. Anemia testing showed iron 14, transferrin saturation 5%, transferrin 210, and ferritin 133. She will continue ferrous sulfate and vitamin C. Hemoglobin was stable at 9.4 on day of discharge. Several of her medications were held during hospitalization and her mental status returned to baseline. She will remain on this reduced list medications upon discharge to SNF. On January 16 she was stable for discharge. She felt she would benefit from SNF stay for a few weeks prior to returning home. Arrangements were complete for her to go to [facility] [place] for ongoing care needs. - Time Spent with Patient Total time spent providing and/or coordinating discharge services: - Discharge Medications Prescriptions: OxyCODONE/APAP 5/325 [Percocet 5/325 MG] 1 each PO Q6HR PRN 30 Days #120 tablet PRN Reason: Pain Lactobacillus [Culturelle] 1 each PO BID 3 Days cap.sprink Home Medications: Calcium Carbonate [Calcium] 600 mg PO DAILY 01/18/16 [History] OxyCODONE/APAP 10/325 [Percocet 10/325 MG] 1 each PO Q6HR PRN 01/18/16 [History] Albuterol Sulfate [Albuterol Inhaler] 2 puff IH Q4HR PRN #0 03/31/16 [Rx] Budesonide/Formoterol 160/4.5 [Symbicort 160/4.5] 2 puff IH BID 12/28/17 [ History] Rivaroxaban [Xarelto] 20 mg PO DAILY 12/28/17 [History] Ascorbic Acid [C-500] 500 mg PO DAILY #30 tablet 01/11/18 [Rx] Ferrous Sulfate 325 mg PO DAILY #30 tablet 01/11/18 [Rx] Ascorbic Acid [Vitamin C] 500 mg PO 0630 tablet 01/16/18 [Rx] Ferrous Sulfate 325 mg PO 0630 tablet 01/16/18 [Rx] Lactobacillus [Culturelle] 1 each PO BID 3 Days cap.sprink 01/16/18 [Rx] Magnesium Oxide [Mag-Ox] 400 mg PO DAILY 7 Days #0 tablet 01/16/18 [Rx] OxyCODONE/APAP 5/325 [Percocet 5/325 MG] 1 each PO Q6HR PRN 30 Days #120 tablet 01/16/18 [Rx] Potassium Chloride 20 meq PO DAILY 365 Days tab.er.prt 01/16/18 [Rx] levoFLOXacin [Levaquin] 750 mg PO DAILY 3 Days tablet 01/16/18 [Rx] Allergies/Adverse Reactions: 3 Allergy/AdvReac Type Severity Reaction Status Date / Time lisinopril AdvReac Cough Verified 12/27/17 20:48 morphine AdvReac Nausea Verified 12/27/17 20:48 Penicillins AdvReac Nausea Verified 12/27/17 20:48 ranitidine [From Zantac] AdvReac Diarrhea Verified 12/27/17 20:48 Date of admission: 01/14/18 00:27 Primary care physician: Maria Luz Bonner CNP - Constitutional Vitals: Temp Pulse Resp BP Pulse Ox 97.7 F 69 20 110/67 100 01/16/18 11:26 01/16/18 11:26 01/16/18 11:26 01/16/18 11:26 01/16/18 11:26 - Patient Status Disposition: Transfer SNF Condition: Fair - Discharge Instructions Instructions: Acute Respiratory Distress Syndrome (DC), Chronic Obstructive Pulmonary Disease (DC) - Diet and Activity Activity: wear oxygen at all times Diet: diabetic diet - VTE Documentation of Mechanical Device: Graduated compression elastic hosiery
--- NOTE | 2018-01-16 14:18 | Physician Discharge Referral ---
ExtendedCare Referral Info Transfer To: [facility] Provider in Charge: Quinn Provider in Charge after Transfer: PCP (Quinn) - Diagnosis (1) Pneumonia Priority: Primary Status: Acute (2) COPD (chronic obstructive pulmonary disease) Priority: Secondary Status: Chronic (3) Hypertension Priority: Secondary Status: Chronic (4) Hypokalemia Priority: Secondary Status: Acute (5) Anemia Priority: Secondary Status: Acute (6) Hypoglycemia Priority: Secondary Status: Acute (7) Hypomagnesemia Priority: Secondary Status: Acute Prognosis: Fair - Transfer Medications Prescriptions: OxyCODONE/APAP 5/325 [Percocet 5/325 MG] 1 each PO Q6HR PRN 30 Days #120 tablet PRN Reason: Pain Lactobacillus [Culturelle] 1 each PO BID 3 Days cap.sprink Home Medications: Calcium Carbonate [Calcium] 600 mg PO DAILY 01/18/16 [History] OxyCODONE/APAP 10/325 [Percocet 10/325 MG] 1 each PO Q6HR PRN 01/18/16 [History] Albuterol Sulfate [Albuterol Inhaler] 2 puff IH Q4HR PRN #0 03/31/16 [Rx] Budesonide/Formoterol 160/4.5 [Symbicort 160/4.5] 2 puff IH BID 12/28/17 [ History] Rivaroxaban [Xarelto] 20 mg PO DAILY 12/28/17 [History] Ascorbic Acid [C-500] 500 mg PO DAILY #30 tablet 01/11/18 [Rx] Ferrous Sulfate 325 mg PO DAILY #30 tablet 01/11/18 [Rx] Ascorbic Acid [Vitamin C] 500 mg PO 0630 tablet 01/16/18 [Rx] Ferrous Sulfate 325 mg PO 0630 tablet 01/16/18 [Rx] Lactobacillus [Culturelle] 1 each PO BID 3 Days cap.sprink 01/16/18 [Rx] Magnesium Oxide [Mag-Ox] 400 mg PO DAILY 7 Days #0 tablet 01/16/18 [Rx] OxyCODONE/APAP 5/325 [Percocet 5/325 MG] 1 each PO Q6HR PRN 30 Days #120 tablet 01/16/18 [Rx] Potassium Chloride 20 meq PO DAILY 365 Days tab.er.prt 01/16/18 [Rx] levoFLOXacin [Levaquin] 750 mg PO DAILY 3 Days tablet 01/16/18 [Rx] Allergies/Adverse Reactions: 3 Allergy/AdvReac Type Severity Reaction Status Date / Time lisinopril AdvReac Cough Verified 12/27/17 20:48 morphine AdvReac Nausea Verified 12/27/17 20:48 Penicillins AdvReac Nausea Verified 12/27/17 20:48 ranitidine [From Zantac] AdvReac Diarrhea Verified 12/27/17 20:48 - Respiratory Orders Oxygen / L per min (2 L/m by nasal cannula 02/01) Smoking Cessation: Smoking cessation has been advised. For more information, call the [place] Tobacco Quit Line at 1-162-FDDN-NOW. - Lab Orders Lab Orders: Other (include drug levels w/frequency) (CBC with differential, bn peptide. BMP, magnesium level in 1 week) - Mobility Orders Ambulate - Rehabiliation Orders Rehab Potential: Fair Rehab Orders: Evaluation for Physical Therapy, Evaluation for Occupational Therapy - Diet Orders No Concentrated Sweets CERTIFICATION: I certify that the transfer of the above named patient to an Extended Care Facility is necessary for the continuing treatment of the diagnosis listed. The above information is true and accurate reflection of patient's current condition. Confidential - Redisclosure prohibited without a patient's written consent.
== END 2018-01-16 14:59 | DRG 193 ==
LOC: EMEROOPIK 22:23 → INPPIK 01-14 00:27
PROVIDERS: ADMIT Internal Medicine; ATTEND Internal Medicine

== ENCOUNTER 2019-04-14 08:06 | Inpatient (IN) ==
[2019-04-14] MEDS ORDERED: Aspirin 81 MG TAB.CHEW PO ONE (08:13)
[2019-04-14] MEDS ORDERED: 0.9 % Sodium Chloride 1,000 ML IVC ONE (08:22)
[2019-04-14 08:26] LABS: Basophils # 0.1 K/mcL (0.0-0.2); Basophils % 0.4 %; Eosinophils # 0.1 K/mcL (0.0-0.6); Eosinophils % 0.7 %; Hematocrit 35.8 % (35.3-44.9); Hemoglobin 10.6 g/dL (11.5-15.4); Lymphocytes # 1.2 K/mcL (0.6-4.6); Lymphocytes % 9.2 %; Mean Corpuscular HGB Conc 29.6 g/dL (31.6-35.5); Mean Corpuscular Hemoglobin 19.7 pg (28.0-33.3); Mean Corpuscular Volume 66.4 fL (83.0-100.0); Monocytes # 0.8 K/mcL (0.0-1.3); Monocytes % 5.8 %; Neutrophils # 10.7 K/mcL (1.6-8.9); Platelet Count 203 K/mcL (140-400); Red Blood Count 5.39 M/mcL (3.82-4.97); Red Cell Distribution Width 16.3 % (11.5-14.5); Segmented Neutrophils % 82.9 %; White Blood Count 12.9 K/mcL (4.3-11.1)
[2019-04-14 08:32] LABS: INR 1.1; Prothrombin Time 12.4 Seconds (9.4-12.1)
[2019-04-14 08:34] LABS: Activated Partial Thrombo Time 33.4 Seconds (26.0-36.0)
[2019-04-14 08:46] LABS: BUN/Creatinine Ratio 34 (6-26); Blood Urea Nitrogen 33 mg/dL (8-23); Calcium 8.9 mg/dL (8.6-10.3); Carbon Dioxide 37 mEq/L (23-29); Chloride 76 mEq/L (98-107); Glucose 500 mg/dL (70-105); Osmolality,Calculated 282 (280-300); Potassium 2.5 mEq/L (3.5-5.1); Sodium 121 mEq/L (136-145); Troponin I < 0.03 ng/mL (< 0.04); eGFR For African Americans > 60 (> 60); eGFR For Non-African Americans 57 (> 60)
[2019-04-14 08:51] LABS: Bilirubin,Urine Negative (Negative); Blood,Urine Small (Negative); Clarity,Urine Slightly Cloudy (Clear); Glucose,Urine (UA) 500 mg/dL (Normal); Ketones,Urine Negative (Negative); Leukocyte Esterase,Urine Large (Negative); Nitrite,Urine Positive (Negative); Protein,Urine Negative (Neg-Trace); Specific Gravity,Urine <= 1.005 (1.010-1.025); Urobilinogen,Urine Normal (Normal)
[2019-04-14 08:53] LABS: Anisocytosis 1+ (Not Present); Large Platelets Present (Not Present); Microcytosis Present (Not Present); Platelet Clumps Few (Not Present); Platelet Estimate Normal (Normal); Toxic Granulation Present (Not Present); Toxic Vacuolation Present (Not Present)
[2019-04-14 08:54] LABS: Color,Urine Light Yellow (Yellow)
[2019-04-14 08:58] LABS: Bacteria,Urine Many per hpf (None-Few); RBC,Urine 0-3 per hpf (0-3); Squamous Epithelial Cell,Urine Few per lpf (None-Few); WBC,Urine TNTC per hpf (0-3); Yeast,Urine Many per hpf (None Seen)
[2019-04-14] MEDS ORDERED: Potassium Effervescent 25 MEQ TABLET.EFF PO ONE ×2 (09:05→10:20)
[2019-04-14] MEDS ORDERED: FLUCONAZOLE IVPB STA (09:40)
[2019-04-14] MEDS ORDERED: Albuterol Neb 1.25 MG/3 ML VIAL IH PRN (10:20)
[2019-04-14] MEDS ORDERED: Loratadine 10 MG TABLET PO PRN (10:20)
[2019-04-14] MEDS ORDERED: D5% in Water 1,000 ML IVC PRN (10:20)
[2019-04-14] MEDS ORDERED: *HR* Dextrose 50 % in Water (Syg) 50 ML SYRINGE IVP PRN (10:20)
[2019-04-14] MEDS ORDERED: 0.9 % Sodium Chloride 1,000 ML IVC SCH (10:20)
[2019-04-14] MEDS ORDERED: Naloxone 0.4 MG/ML INJ IVP PRN (10:20)
[2019-04-14] MEDS ORDERED: Dextrose Gel 15 GM/37.5 ML TUBE PO PRN ×2 (10:20)
[2019-04-14] MEDS ORDERED: Ondansetron 4 MG/2 ML VIAL IVP PRN (10:20)
[2019-04-14] MEDS: Insulin LISPRO 300 UNITS/3 ML VIAL SQ SCH ×2 (12:02→17:38)
[2019-04-14] MEDS ORDERED: 0.45 % Sodium Chloride w/KCl 20 MEQ/1,000 ML MLS IVC SCH (14:00)
[2019-04-14] MEDS: Methocarbamol 500 MG TABLET PO SCH ×2 (15:16→20:20)
[2019-04-14] MEDS ORDERED: *HR* Dextrose 50 % in Water (Vial) 50 ML VIAL IVP PRN (16:30)
[2019-04-14] MEDS ORDERED: Albuterol 2.5 MG/3 ML NEBULIZER IH PRN (16:50)
[2019-04-14] MEDS ORDERED: Sucralfate 1 GM TABLET PO SCH (18:00)
[2019-04-14 18:24] LABS: BUN/Creatinine Ratio 32 (6-26); Blood Urea Nitrogen 26 mg/dL (8-23); Calcium 8.4 mg/dL (8.6-10.3); Carbon Dioxide 35 mEq/L (23-29); Chloride 83 mEq/L (98-107); Glucose 367 mg/dL (70-105); Osmolality,Calculated 284 (280-300); Potassium 2.6 mEq/L (3.5-5.1); Sodium 127 mEq/L (136-145); eGFR For African Americans > 60 (> 60); eGFR For Non-African Americans > 60 (> 60)
[2019-04-14] MEDS: Lactobacillus 1 EACH CAP.SPRINK PO SCH (20:20)
[2019-04-14] MEDS: Pregabalin 75 MG CAPSULE PO SCH (20:23)
[2019-04-14] MEDS: 0.9 % Sodium Chloride w KCl 20 MEQ/1,000 ML MLS IVC SCH (20:25)
[2019-04-14] MEDS ORDERED: Insulin DETEMIR 100 UNIT/ML X5UNITS SQ SCH (21:00)
[2019-04-15] MEDS: *HR* Enoxaparin 40 MG/0.4 ML SYRINGE SQ SCH (05:47)
[2019-04-15] MEDS: 0.9 % Sodium Chloride w KCl 20 MEQ/1,000 ML MLS IVC SCH ×2 (05:47→16:38)
[2019-04-15 06:04] LABS: Phosphorous 2.2 mg/dL (2.7-4.5); Uric Acid 6.2 mg/dL (2.3-7.6)
[2019-04-15 06:05] LABS: Basophils # 0.1 K/mcL (0.0-0.2); Basophils % 0.5 %; Eosinophils # 0.1 K/mcL (0.0-0.6); Eosinophils % 0.8 %; Hematocrit 35.2 % (35.3-44.9); Hemoglobin 10.2 g/dL (11.5-15.4); Immature Granulocytes % 1.1 % (0-4); Lymphocytes # 1.6 K/mcL (0.6-4.6); Lymphocytes % 15.7 %; Mean Corpuscular Hemoglobin 19.6 pg (28.0-33.3); Mean Corpuscular Volume 67.6 fL (83.0-100.0); Monocytes # 0.8 K/mcL (0.0-1.3); Monocytes % 8.5 %; Neutrophils # 7.3 K/mcL (1.6-8.9); Platelet Count 172 K/mcL (140-400); Red Blood Count 5.21 M/mcL (3.82-4.97); Red Cell Distribution Width 16.4 % (11.5-14.5); Segmented Neutrophils % 73.4 %; White Blood Count 9.9 K/mcL (4.3-11.1)
[2019-04-15 06:09] LABS: BUN/Creatinine Ratio 25 (6-26); Blood Urea Nitrogen 17 mg/dL (8-23); Calcium 8.3 mg/dL (8.6-10.3); Carbon Dioxide 35 mEq/L (23-29); Chloride 89 mEq/L (98-107); Glucose 282 mg/dL (70-105); Osmolality,Calculated 288 (280-300); Potassium 2.4 mEq/L (3.5-5.1); Sodium 133 mEq/L (136-145); eGFR For African Americans > 60 (> 60); eGFR For Non-African Americans > 60 (> 60)
[2019-04-15 06:15] LABS: Anisocytosis 1+ (Not Present); Thyroid Stimulating Hormone 0.669 mcIU/mL (0.340-5.600)
[2019-04-15 06:16] LABS: Microcytosis Present (Not Present); Poikilocytosis 1+ (Not Present)
[2019-04-15 06:19] LABS: Platelet Estimate Normal (Normal); Stomatocytes 1+ (Not Present)
[2019-04-15 06:20] LABS: Hypochromasia Present (Not Present); Large Platelets Present (Not Present)
[2019-04-15] MEDS: Lactobacillus 1 EACH CAP.SPRINK PO SCH ×2 (07:41→20:00)
[2019-04-15] MEDS: Bumetanide 1 MG TABLET PO SCH (07:41)
[2019-04-15] MEDS: Metoprolol XL (24 HR) Succ 50 MG TAB.ER.24H PO SCH (07:41)
[2019-04-15] MEDS: *HR* SitaGLIPtin 25 MG TABLET PO SCH (07:41)
[2019-04-15] MEDS: Isosorbide MONOnitrate (24 HR) 60 MG TAB.ER.24H PO SCH (07:42)
[2019-04-15] MEDS: Methocarbamol 500 MG TABLET PO SCH ×3 (07:42→20:00)
[2019-04-15] MEDS: Aspirin Enteric Coated 81 MG Tablet PO SCH (07:42)
[2019-04-15] MEDS: Pregabalin 75 MG CAPSULE PO SCH ×2 (07:43→20:00)
[2019-04-15] MEDS: FLUoxetine 20 MG CAPSULE PO SCH (07:43)
[2019-04-15] MEDS: Roflumilast [Daliresp] 500 MCG PO SCH (07:44)
[2019-04-15] MEDS: Insulin LISPRO 300 UNITS/3 ML VIAL SQ SCH ×3 (07:51→16:39)
[2019-04-15] MEDS: Magnesium Oxide 400 MG TABLET PO SCH (08:19)
[2019-04-15] MEDS ORDERED: FLUCONAZOLE IVPB SCH (09:00)
[2019-04-15] MEDS ORDERED: SAXAGLIPTIN HCL 5 MG PO SCH (09:00)
[2019-04-15] MEDS ORDERED: NON-FORMULARY MEDICATION 1 EACH EACH (Tiotropium Br/Olodaterol Hcl [Stiolto Respimat Inhal IH SCH (09:00)
[2019-04-15 09:10] LABS: Folate 5.9 ng/mL (3.0-16.0)
[2019-04-15] MEDS: Tiotropium 18 MCG inhalation IH SCH (09:11)
[2019-04-15] MEDS: cefTRIAXone 1,000 MG in Water for inj. (sterile) 10 ML IVP SCH (09:42)
[2019-04-15 10:34] LABS: Estimated Average Glucose 390 mg/dl
[2019-04-15] MEDS: Ibuprofen 600 MG TABLET PO PRN ×2 (16:38→22:28)
[2019-04-15 17:06] LABS: BUN/Creatinine Ratio 19 (6-26); Blood Urea Nitrogen 13 mg/dL (8-23); Carbon Dioxide 33 mEq/L (23-29); Chloride 94 mEq/L (98-107); Glucose 249 mg/dL (70-105); Osmolality,Calculated 286 (280-300); Potassium 3.6 mEq/L (3.5-5.1); Sodium 134 mEq/L (136-145); eGFR For African Americans > 60 (> 60); eGFR For Non-African Americans > 60 (> 60)
[2019-04-15] MEDS ORDERED: Insulin DETEMIR 100 UNIT/ML X5UNITS SQ SCH (21:00)
[2019-04-16] MEDS: 0.9 % Sodium Chloride w KCl 20 MEQ/1,000 ML MLS IVC SCH (02:14)
[2019-04-16] MEDS: *HR* Enoxaparin 40 MG/0.4 ML SYRINGE SQ SCH (05:39)
[2019-04-16] MEDS: Ibuprofen 600 MG TABLET PO PRN ×2 (06:14→19:32)
[2019-04-16 06:34] LABS: Basophils # 0.1 K/mcL (0.0-0.2); Basophils % 0.7 %; Eosinophils # 0.2 K/mcL (0.0-0.6); Eosinophils % 2.1 %; Hematocrit 33.2 % (35.3-44.9); Hemoglobin 9.4 g/dL (11.5-15.4); Immature Granulocytes % 1.9 % (0-4); Lymphocytes # 2.9 K/mcL (0.6-4.6); Lymphocytes % 33.5 %; Mean Corpuscular HGB Conc 28.3 g/dL (31.6-35.5); Mean Corpuscular Hemoglobin 19.7 pg (28.0-33.3); Mean Corpuscular Volume 69.5 fL (83.0-100.0); Monocytes # 0.9 K/mcL (0.0-1.3); Monocytes % 10.1 %; Neutrophils # 4.4 K/mcL (1.6-8.9); Platelet Count 181 K/mcL (140-400); Red Blood Count 4.78 M/mcL (3.82-4.97); Red Cell Distribution Width 17.1 % (11.5-14.5); Segmented Neutrophils % 51.7 %; White Blood Count 8.6 K/mcL (4.3-11.1)
[2019-04-16 06:58] LABS: Anisocytosis 1+ (Not Present); Hypochromasia Present (Not Present); Large Platelets Present (Not Present); Microcytosis Present (Not Present); Platelet Estimate Normal (Normal)
[2019-04-16 07:02] LABS: Poikilocytosis 1+ (Not Present)
[2019-04-16 07:04] LABS: Stomatocytes 1+ (Not Present)
[2019-04-16 07:09] LABS: Alanine Aminotransferase 4 Units/L (7-52); Albumin 3.1 g/dL (3.5-5.7); Albumin/Globulin Ratio 1.1 (1.1-2.2); Alkaline Phosphatase 69 Units/L (34-104); Aspartate Amino Transferase 6 Units/L (13-39); BUN/Creatinine Ratio 14 (6-26); Bilirubin,Total 0.4 mg/dL (0.3-1.0); Blood Urea Nitrogen 12 mg/dL (8-23); Carbon Dioxide 30 mEq/L (23-29); Chloride 98 mEq/L (98-107); Globulin 2.8 g/dL (2.4-3.5); Glucose 211 mg/dL (70-105); Osmolality,Calculated 288 (280-300); Phosphorous 2.7 mg/dL (2.7-4.5); Potassium 3.3 mEq/L (3.5-5.1); Sodium 136 mEq/L (136-145); Total Protein 5.9 g/dL (6.4-8.9); eGFR For African Americans > 60 (> 60); eGFR For Non-African Americans > 60 (> 60)
[2019-04-16] MEDS: Nystatin POWDER 30 GM BOTTLE TP SCH ×2 (08:01→19:34)
[2019-04-16] MEDS: FLUCONAZOLE IVPB SCH (08:02)
[2019-04-16] MEDS: Tiotropium 18 MCG inhalation IH SCH (08:06)
[2019-04-16] MEDS: FLUoxetine 20 MG CAPSULE PO SCH (08:07)
[2019-04-16] MEDS: Bumetanide 1 MG TABLET PO SCH (08:08)
[2019-04-16] MEDS: *HR* SitaGLIPtin 25 MG TABLET PO SCH (08:08)
[2019-04-16] MEDS: Pregabalin 75 MG CAPSULE PO SCH ×2 (08:09→19:31)
[2019-04-16] MEDS: Metoprolol XL (24 HR) Succ 50 MG TAB.ER.24H PO SCH (08:09)
[2019-04-16] MEDS: Aspirin Enteric Coated 81 MG Tablet PO SCH (08:09)
[2019-04-16] MEDS: Magnesium Oxide 400 MG TABLET PO SCH (08:09)
[2019-04-16] MEDS: Methocarbamol 500 MG TABLET PO SCH ×3 (08:09→19:32)
[2019-04-16] MEDS: cefTRIAXone 1,000 MG in Water for inj. (sterile) 10 ML IVP SCH (08:10)
[2019-04-16] MEDS: Lactobacillus 1 EACH CAP.SPRINK PO SCH (08:10)
[2019-04-16] MEDS: Isosorbide MONOnitrate (24 HR) 60 MG TAB.ER.24H PO SCH (08:10)
[2019-04-16] MEDS: Roflumilast [Daliresp] 500 MCG PO SCH (08:11)
[2019-04-16] MEDS: Insulin LISPRO 300 UNITS/3 ML VIAL SQ SCH ×3 (08:17→16:24)
[2019-04-16] MEDS: *HR* Metformin 500 MG TABLET PO SCH (16:24)
[2019-04-16] MEDS: Insulin DETEMIR 100 UNIT/ML X5UNITS SQ SCH (19:31)
[2019-04-17] MEDS: *HR* Enoxaparin 40 MG/0.4 ML SYRINGE SQ SCH (05:56)
[2019-04-17] MEDS: Ibuprofen 600 MG TABLET PO PRN (05:58)
[2019-04-17 06:43] VITALS: BP 117/71
[2019-04-17] MEDS: *HR* SitaGLIPtin 25 MG TABLET PO SCH (07:58)
[2019-04-17] MEDS: FLUoxetine 20 MG CAPSULE PO SCH (07:59)
[2019-04-17] MEDS: Methocarbamol 500 MG TABLET PO SCH (07:59)
[2019-04-17] MEDS: *HR* Metformin 500 MG TABLET PO SCH (08:00)
[2019-04-17] MEDS: Bumetanide 1 MG TABLET PO SCH (08:00)
[2019-04-17] MEDS: Pregabalin 75 MG CAPSULE PO SCH (08:00)
[2019-04-17] MEDS: Isosorbide MONOnitrate (24 HR) 60 MG TAB.ER.24H PO SCH (08:00)
[2019-04-17] MEDS: Aspirin Enteric Coated 81 MG Tablet PO SCH (08:00)
[2019-04-17] MEDS: Magnesium Oxide 400 MG TABLET PO SCH (08:00)
[2019-04-17] MEDS: Insulin LISPRO 300 UNITS/3 ML VIAL SQ SCH ×2 (08:01→11:27)
[2019-04-17] MEDS: Insulin DETEMIR 100 UNIT/ML X5UNITS SQ SCH (08:01)
[2019-04-17] MEDS: Roflumilast [Daliresp] 500 MCG PO SCH (08:03)
[2019-04-17] MEDS: Nystatin POWDER 30 GM BOTTLE TP SCH (08:03)
[2019-04-17] MEDS: FLUCONAZOLE IVPB SCH (08:07)
[2019-04-17] MEDS: Tiotropium 18 MCG inhalation IH SCH (08:30)
[2019-04-17] MEDS ORDERED: Metoprolol XL (24 HR) Succ 50 MG TAB.ER.24H PO SCH (09:00)
[2019-04-17] MEDS ORDERED: Apixaban 5 MG TABLET PO SCH (21:00)
[2019-04-18] MEDS ORDERED: Bumetanide 1 MG TABLET PO SCH (09:00)
[2019-04-19 10:13] LABS: Zinc 60.2 ug/dL (60.0-120.0)
== END 2019-04-17 12:55 | disposition other institution (70) | DRG 313 ==
LOC: INPPIK 08:06 → EMEROOPIK 08:06 → INPPIK 10:22
PROVIDERS: ADMIT Internal Medicine; ATTEND Internal Medicine

== ENCOUNTER 2019-04-17 12:26 | Inpatient (IN) ==
[2019-04-17] MEDS ORDERED: Loratadine 10 MG TABLET PO PRN (13:05)
[2019-04-17] MEDS ORDERED: Albuterol 2.5 MG/3 ML NEBULIZER IH PRN (13:05)
[2019-04-17] MEDS ORDERED: Dextrose Gel 15 GM/37.5 ML TUBE PO PRN ×2 (14:25)
[2019-04-17] MEDS ORDERED: D5% in Water 1,000 ML IVC PRN (14:25)
[2019-04-17] MEDS ORDERED: *HR* Dextrose 50 % in Water (Syg) 50 ML SYRINGE IVP PRN (14:25)
[2019-04-17] MEDS: Methocarbamol 500 MG TABLET PO SCH ×2 (14:37→19:23)
[2019-04-17] MEDS: Insulin LISPRO 300 UNITS/3 ML VIAL SQ SCH ×2 (16:37→19:24)
[2019-04-17] MEDS ORDERED: *HR* Dextrose 50 % in Water (Vial) 50 ML VIAL IVP PRN (17:45)
[2019-04-17] MEDS: Apixaban 5 MG TABLET PO SCH (19:23)
[2019-04-17] MEDS: Pregabalin 75 MG CAPSULE PO SCH (19:24)
[2019-04-17] MEDS: Insulin DETEMIR 100 UNIT/ML X5UNITS SQ SCH (19:24)
[2019-04-17] MEDS: Nystatin POWDER 30 GM BOTTLE TP SCH (19:25)
[2019-04-17] MEDS: Acetaminophen 325 MG TABLET PO PRN (19:38)
[2019-04-18] MEDS: Insulin DETEMIR 100 UNIT/ML X5UNITS SQ SCH ×2 (08:11→20:40)
[2019-04-18] MEDS: Insulin LISPRO 300 UNITS/3 ML VIAL SQ SCH ×4 (08:11→20:40)
[2019-04-18] MEDS: FLUoxetine 20 MG CAPSULE PO SCH (08:12)
[2019-04-18] MEDS: Bumetanide 1 MG TABLET PO SCH (08:12)
[2019-04-18] MEDS: *HR* SitaGLIPtin 25 MG TABLET PO SCH (08:12)
[2019-04-18] MEDS: Apixaban 5 MG TABLET PO SCH ×2 (08:15→19:43)
[2019-04-18] MEDS: Cholecalciferol (D-3) 1,000 UNIT (25MCG) TABLET PO SCH (08:16)
[2019-04-18] MEDS: Pregabalin 75 MG CAPSULE PO SCH ×2 (08:17→19:43)
[2019-04-18] MEDS: Isosorbide MONOnitrate (24 HR) 60 MG TAB.ER.24H PO SCH (08:18)
[2019-04-18] MEDS: Magnesium Oxide 400 MG TABLET PO SCH (08:18)
[2019-04-18] MEDS: Metoprolol XL (24 HR) Succ 50 MG TAB.ER.24H PO SCH (08:19)
[2019-04-18] MEDS: Methocarbamol 500 MG TABLET PO SCH ×3 (08:22→19:42)
[2019-04-18] MEDS: Acetaminophen 325 MG TABLET PO PRN ×2 (08:23→19:45)
[2019-04-18] MEDS: Nystatin POWDER 30 GM BOTTLE TP SCH ×2 (08:24→19:43)
[2019-04-18] MEDS: Roflumilast [Daliresp] 500 MCG PO SCH (08:24)
[2019-04-18] MEDS: Tiotropium 18 MCG inhalation IH SCH (09:21)
[2019-04-19 06:53] LABS: Basophils # 0.1 K/mcL (0.0-0.2); Basophils % 0.9 %; Eosinophils # 0.1 K/mcL (0.0-0.6); Eosinophils % 1.5 %; Hematocrit 32.3 % (35.3-44.9); Hemoglobin 9.2 g/dL (11.5-15.4); Lymphocytes # 2.7 K/mcL (0.6-4.6); Lymphocytes % 29.8 %; Mean Corpuscular HGB Conc 28.5 g/dL (31.6-35.5); Mean Corpuscular Hemoglobin 19.8 pg (28.0-33.3); Mean Corpuscular Volume 69.5 fL (83.0-100.0); Monocytes # 0.9 K/mcL (0.0-1.3); Monocytes % 9.5 %; Neutrophils # 5.2 K/mcL (1.6-8.9); Platelet Count 196 K/mcL (140-400); Red Blood Count 4.65 M/mcL (3.82-4.97); Red Cell Distribution Width 17.4 % (11.5-14.5); Segmented Neutrophils % 56.3 %; White Blood Count 9.2 K/mcL (4.3-11.1)
[2019-04-19 07:17] LABS: BUN/Creatinine Ratio 10 (6-26); Blood Urea Nitrogen 8 mg/dL (8-23); Calcium 9.2 mg/dL (8.6-10.3); Carbon Dioxide 31 mEq/L (23-29); Chloride 98 mEq/L (98-107); Glucose 180 mg/dL (70-105); Osmolality,Calculated 283 (280-300); Phosphorous 4.4 mg/dL (2.7-4.5); Potassium 4.4 mEq/L (3.5-5.1); Sodium 135 mEq/L (136-145); eGFR For African Americans > 60 (> 60); eGFR For Non-African Americans > 60 (> 60)
[2019-04-19 07:25] LABS: Magnesium 1.7 mg/dL (1.6-2.6)
[2019-04-19 07:26] LABS: Hypochromasia Present (Not Present); Microcytosis Present (Not Present); Ovalocytes 1+ (Not Present); Platelet Estimate Normal (Normal)
[2019-04-19] MEDS: Nystatin POWDER 30 GM BOTTLE TP SCH ×2 (08:18→20:57)
[2019-04-19] MEDS: Insulin LISPRO 300 UNITS/3 ML VIAL SQ SCH ×4 (08:18→20:54)
[2019-04-19] MEDS: FLUoxetine 20 MG CAPSULE PO SCH (08:19)
[2019-04-19] MEDS: Bumetanide 1 MG TABLET PO SCH (08:19)
[2019-04-19] MEDS: Pregabalin 75 MG CAPSULE PO SCH ×2 (08:19→20:56)
[2019-04-19] MEDS: Cholecalciferol (D-3) 1,000 UNIT (25MCG) TABLET PO SCH (08:19)
[2019-04-19] MEDS: Magnesium Oxide 400 MG TABLET PO SCH (08:21)
[2019-04-19] MEDS: Metoprolol XL (24 HR) Succ 50 MG TAB.ER.24H PO SCH (08:21)
[2019-04-19] MEDS: *HR* SitaGLIPtin 25 MG TABLET PO SCH (08:21)
[2019-04-19] MEDS: Isosorbide MONOnitrate (24 HR) 60 MG TAB.ER.24H PO SCH (08:21)
[2019-04-19] MEDS: Apixaban 5 MG TABLET PO SCH ×2 (08:21→20:53)
[2019-04-19] MEDS: Roflumilast [Daliresp] 500 MCG PO SCH (08:22)
[2019-04-19] MEDS: Insulin DETEMIR 100 UNIT/ML X5UNITS SQ SCH ×2 (08:22→20:53)
[2019-04-19] MEDS: Methocarbamol 500 MG TABLET PO SCH ×3 (08:24→20:53)
[2019-04-19] MEDS: Tiotropium 18 MCG inhalation IH SCH (09:46)
[2019-04-19] MEDS: Acetaminophen 325 MG TABLET PO PRN (19:25)
[2019-04-20] MEDS: *HR* SitaGLIPtin 25 MG TABLET PO SCH (07:44)
[2019-04-20] MEDS: Apixaban 5 MG TABLET PO SCH ×2 (07:45→21:03)
[2019-04-20] MEDS: Metoprolol XL (24 HR) Succ 25 MG TAB.ER.24H PO SCH (07:45)
[2019-04-20] MEDS: FLUoxetine 20 MG CAPSULE PO SCH (07:45)
[2019-04-20] MEDS: Magnesium Oxide 400 MG TABLET PO SCH (07:45)
[2019-04-20] MEDS: Bumetanide 1 MG TABLET PO SCH (07:45)
[2019-04-20] MEDS: Cholecalciferol (D-3) 1,000 UNIT (25MCG) TABLET PO SCH (07:45)
[2019-04-20] MEDS: Isosorbide MONOnitrate (24 HR) 60 MG TAB.ER.24H PO SCH (07:45)
[2019-04-20] MEDS: Methocarbamol 500 MG TABLET PO SCH ×3 (07:46→21:04)
[2019-04-20] MEDS: Pregabalin 75 MG CAPSULE PO SCH ×2 (07:46→21:10)
[2019-04-20] MEDS: Roflumilast [Daliresp] 500 MCG PO SCH (07:46)
[2019-04-20] MEDS: Nystatin POWDER 30 GM BOTTLE TP SCH ×2 (07:51→23:39)
[2019-04-20] MEDS: Insulin LISPRO 300 UNITS/3 ML VIAL SQ SCH ×4 (07:51→21:08)
[2019-04-20] MEDS: Insulin DETEMIR 100 UNIT/ML X5UNITS SQ SCH ×2 (07:54→21:05)
[2019-04-20] MEDS: Tiotropium 18 MCG inhalation IH SCH (08:40)
[2019-04-20] MEDS: Acetaminophen 325 MG TABLET PO PRN ×2 (10:43→18:48)
[2019-04-21] MEDS: Bumetanide 1 MG TABLET PO SCH (08:22)
[2019-04-21] MEDS: FLUoxetine 20 MG CAPSULE PO SCH (08:23)
[2019-04-21] MEDS: *HR* SitaGLIPtin 25 MG TABLET PO SCH (08:23)
[2019-04-21] MEDS: Methocarbamol 500 MG TABLET PO SCH ×3 (08:24→20:15)
[2019-04-21] MEDS: Cholecalciferol (D-3) 1,000 UNIT (25MCG) TABLET PO SCH (08:25)
[2019-04-21] MEDS: Magnesium Oxide 400 MG TABLET PO SCH (08:25)
[2019-04-21] MEDS: Apixaban 5 MG TABLET PO SCH ×2 (08:25→20:18)
[2019-04-21] MEDS: Isosorbide MONOnitrate (24 HR) 60 MG TAB.ER.24H PO SCH (08:25)
[2019-04-21] MEDS: Metoprolol XL (24 HR) Succ 25 MG TAB.ER.24H PO SCH (08:26)
[2019-04-21] MEDS: Pregabalin 75 MG CAPSULE PO SCH ×2 (08:26→20:16)
[2019-04-21] MEDS: Insulin LISPRO 300 UNITS/3 ML VIAL SQ SCH ×4 (08:26→20:14)
[2019-04-21] MEDS: Roflumilast [Daliresp] 500 MCG PO SCH (08:26)
[2019-04-21] MEDS: Nystatin POWDER 30 GM BOTTLE TP SCH ×2 (08:26→22:02)
[2019-04-21] MEDS: Insulin DETEMIR 100 UNIT/ML X5UNITS SQ SCH ×2 (08:31→20:14)
[2019-04-21] MEDS: Tiotropium 18 MCG inhalation IH SCH (08:40)
[2019-04-21] MEDS: Acetaminophen 325 MG TABLET PO PRN ×2 (10:30→15:22)
[2019-04-22] MEDS: Acetaminophen 325 MG TABLET PO PRN ×2 (01:31→07:07)
[2019-04-22 07:26] LABS: Basophils # 0.1 K/mcL (0.0-0.2); Eosinophils # 0.2 K/mcL (0.0-0.6); Eosinophils % 1.5 %; Hematocrit 34.4 % (35.3-44.9); Hemoglobin 9.7 g/dL (11.5-15.4); Immature Granulocytes % 1.1 % (0-4); Lymphocytes # 3.4 K/mcL (0.6-4.6); Mean Corpuscular HGB Conc 28.2 g/dL (31.6-35.5); Mean Corpuscular Hemoglobin 19.9 pg (28.0-33.3); Mean Corpuscular Volume 70.5 fL (83.0-100.0); Monocytes # 0.8 K/mcL (0.0-1.3); Monocytes % 7.3 %; Platelet Count 227 K/mcL (140-400); Red Blood Count 4.88 M/mcL (3.82-4.97); Red Cell Distribution Width 17.5 % (11.5-14.5); Segmented Neutrophils % 57.1 %; White Blood Count 10.6 K/mcL (4.3-11.1)
[2019-04-22 07:45] LABS: BUN/Creatinine Ratio 13 (6-26); Blood Urea Nitrogen 10 mg/dL (8-23); Calcium 8.9 mg/dL (8.6-10.3); Carbon Dioxide 29 mEq/L (23-29); Chloride 96 mEq/L (98-107); Glucose 159 mg/dL (70-105); Magnesium 1.4 mg/dL (1.6-2.6); Osmolality,Calculated 280 (280-300); Phosphorous 3.7 mg/dL (2.7-4.5); Sodium 134 mEq/L (136-145); eGFR For African Americans > 60 (> 60); eGFR For Non-African Americans > 60 (> 60)
[2019-04-22 08:06] VITALS: BP 109/67
[2019-04-22] MEDS: *HR* SitaGLIPtin 25 MG TABLET PO SCH (08:09)
[2019-04-22] MEDS: Bumetanide 1 MG TABLET PO SCH (08:09)
[2019-04-22] MEDS: Magnesium Oxide 400 MG TABLET PO SCH (08:10)
[2019-04-22] MEDS: FLUoxetine 20 MG CAPSULE PO SCH (08:10)
[2019-04-22] MEDS: Isosorbide MONOnitrate (24 HR) 60 MG TAB.ER.24H PO SCH (08:10)
[2019-04-22] MEDS: Methocarbamol 500 MG TABLET PO SCH (08:10)
[2019-04-22] MEDS: Metoprolol XL (24 HR) Succ 25 MG TAB.ER.24H PO SCH (08:10)
[2019-04-22] MEDS: Apixaban 5 MG TABLET PO SCH (08:10)
[2019-04-22] MEDS: Cholecalciferol (D-3) 1,000 UNIT (25MCG) TABLET PO SCH (08:10)
[2019-04-22] MEDS: Nystatin POWDER 30 GM BOTTLE TP SCH (08:11)
[2019-04-22] MEDS: Pregabalin 75 MG CAPSULE PO SCH (08:11)
[2019-04-22] MEDS: Roflumilast [Daliresp] 500 MCG PO SCH (08:11)
[2019-04-22] MEDS: Insulin LISPRO 300 UNITS/3 ML VIAL SQ SCH (08:11)
[2019-04-22 08:22] LABS: Anisocytosis 1+ (Not Present); Hypochromasia Present (Not Present); Platelet Estimate Normal (Normal)
[2019-04-22] MEDS: Insulin DETEMIR 100 UNIT/ML X5UNITS SQ SCH (09:19)
[2019-04-22] MEDS ORDERED: FLU Vac QV 19-20 (6Month+)/PF 0.5 ML SYRINGE IM ONE (10:30)
== END 2019-04-22 11:50 | disposition home or self-care (01) | DRG 946 ==
LOC: INPPIK 13:17
PROVIDERS: ADMIT Internal Medicine; ATTEND Internal Medicine

== ENCOUNTER 2019-06-09 11:43 | Inpatient (IN) ==
[2019-06-09] MEDS ORDERED: 0.9 % Sodium Chloride 1,000 ML IVC ONE ×2 (12:16→12:49)
[2019-06-09] MEDS ORDERED: Ondansetron 4 MG/2 ML VIAL IVP ONE ×2 (12:16→18:17)
[2019-06-09] MEDS ORDERED: Ipratropium/Albuterol Neb 3 ML IH ONE (12:16)
[2019-06-09 12:40] LABS: Hemoglobin 10.6 g/dL (11.5-15.4); Mean Corpuscular HGB Conc 28.6 g/dL (31.6-35.5); Mean Corpuscular Volume 73.4 fL (83.0-100.0); Platelet Count 216 K/mcL (140-400); Red Blood Count 5.04 M/mcL (3.82-4.97); Red Cell Distribution Width 18.4 % (11.5-14.5)
[2019-06-09 12:46] LABS: ABG Base Excess 3 mEq/L (-2 to 3); ABG HCO3 26 mEq/L (21-27); ABG Oxygen Saturation 86 % (95-98); ABG PCO2 34 mmHg (35-45); ABG PH 7.49 pH Units (7.32-7.45); ABG PO2 47 mmHg (85-104); ABG TCO2 27 mEq/L (20-26)
[2019-06-09 12:49] LABS: INR 1.7; Prothrombin Time 19.2 Seconds (9.4-12.1)
[2019-06-09] MEDS ORDERED: levoFLOXacin 750 MG/150 ML 750 MG/150 ML BAG IVPB ONE (12:49)
[2019-06-09 13:00] LABS: Lymphocytes # 0.6 K/mcL (0.6-4.6); Monocytes # 2.6 K/mcL (0.0-1.3); Neutrophils # 28.2 K/mcL (1.6-8.9)
[2019-06-09 13:01] LABS: Anisocytosis 1+ (Not Present); Hypochromasia Present (Not Present); Large Platelets Present (Not Present); Platelet Estimate Normal (Normal); Polychromasia 1+ (Not Present); Toxic Granulation Present (Not Present); Troponin I < 0.03 ng/mL (< 0.04)
[2019-06-09 13:02] LABS: Alanine Aminotransferase 18 Units/L (7-52); Albumin 3.4 g/dL (3.5-5.7); Alkaline Phosphatase 103 Units/L (34-104); Aspartate Amino Transferase 21 Units/L (13-39); BUN/Creatinine Ratio 7 (6-26); Bilirubin,Direct 0.2 mg/dL (0.0-0.2); Bilirubin,Indirect 0.3 mg/dL (0.0-1.0); Bilirubin,Total 0.5 mg/dL (0.3-1.0); Blood Urea Nitrogen 5 mg/dL (8-23); Calcium 8.5 mg/dL (8.6-10.3); Carbon Dioxide 28 mEq/L (23-29); Chloride 96 mEq/L (98-107); Globulin 3.4 g/dL (2.4-3.5); Glucose 192 mg/dL (70-105); Lipase 6 Units/L (11-82); Osmolality,Calculated 288 (280-300); Potassium 3.4 mEq/L (3.5-5.1); Sodium 138 mEq/L (136-145); Total Protein 6.8 g/dL (6.4-8.9); eGFR For African Americans > 60 (> 60); eGFR For Non-African Americans > 60 (> 60)
[2019-06-09 13:49] LABS: Bilirubin,Urine Negative (Negative); Blood,Urine Trace-intact (Negative); Clarity,Urine Cloudy (Clear); Color,Urine Dark Yellow (Yellow); Glucose,Urine (UA) Normal (Normal); Ketones,Urine Negative (Negative); Leukocyte Esterase,Urine Small (Negative); Nitrite,Urine Positive (Negative); Protein,Urine >=300 mg/dL (Neg-Trace); Urobilinogen,Urine Normal (Normal)
[2019-06-09 13:57] LABS: Bacteria,Urine Many per hpf (None-Few); RBC,Urine 0-3 per hpf (0-3); Squamous Epithelial Cell,Urine Few per lpf (None-Few); WBC,Urine 50-100 per hpf (0-3)
[2019-06-09] MEDS ORDERED: Acetaminophen 325 MG TABLET PO PRN (14:21)
[2019-06-09] MEDS ORDERED: Ondansetron 4 MG/2 ML VIAL IVP PRN (14:21)
[2019-06-09] MEDS ORDERED: MOM Conc 10 ML UD.LIQ PO PRN (14:21)
[2019-06-09] MEDS ORDERED: Naloxone 0.4 MG/ML INJ IVP PRN (14:21)
[2019-06-09] MEDS ORDERED: Metoprolol XL (24 HR) Succ 25 MG TAB.ER.24H PO SCH (15:00)
[2019-06-09] MEDS ORDERED: Apixaban 5 MG TABLET PO SCH (15:00)
[2019-06-09 15:02] VITALS: BP 129/73
[2019-06-09] MEDS ORDERED: Cefepime HCl 2,000 MG in Water for inj. (sterile) 20 ML IVP SCH (16:00)
[2019-06-09] MEDS: 0.9 % Sodium Chloride 1,000 ML IVC SCH ×2 (16:24→16:29)
[2019-06-09 16:58] LABS: ABG Base Excess -2 mEq/L (-2 to 3); ABG HCO3 23 mEq/L (21-27); ABG Oxygen Saturation 91 % (95-98); ABG PCO2 35 mmHg (35-45); ABG PH 7.42 pH Units (7.32-7.45); ABG PO2 60 mmHg (85-104); ABG TCO2 24 mEq/L (20-26)
[2019-06-09 19:19] LABS: Hematocrit 32.6 % (35.3-44.9); Hemoglobin 9.4 g/dL (11.5-15.4); Mean Corpuscular HGB Conc 28.8 g/dL (31.6-35.5); Mean Corpuscular Hemoglobin 21.3 pg (28.0-33.3); Mean Corpuscular Volume 73.8 fL (83.0-100.0); Platelet Count 186 K/mcL (140-400); Red Blood Count 4.42 M/mcL (3.82-4.97); Red Cell Distribution Width 18.4 % (11.5-14.5)
[2019-06-09 19:21] LABS: White Blood Count 35.1 K/mcL (4.3-11.1)
[2019-06-09 19:38] LABS: BUN/Creatinine Ratio 11 (6-26); Blood Urea Nitrogen 7 mg/dL (8-23); Calcium 7.6 mg/dL (8.6-10.3); Carbon Dioxide 23 mEq/L (23-29); Chloride 102 mEq/L (98-107); Glucose 173 mg/dL (70-105); Magnesium 0.9 mg/dL (1.6-2.6); Osmolality,Calculated 286 (280-300); Potassium 3.4 mEq/L (3.5-5.1); Sodium 137 mEq/L (136-145); eGFR For African Americans > 60 (> 60); eGFR For Non-African Americans > 60 (> 60)
[2019-06-09] MEDS ORDERED: Insulin DETEMIR 100 UNIT/ML X5UNITS SQ SCH (21:00)
[2019-06-09] MEDS ORDERED: Pregabalin 75 MG CAPSULE PO SCH (21:00)
[2019-06-09] MEDS ORDERED: Magnesium Oxide 400 MG TABLET PO SCH (21:00)
[2019-06-09 22:03] LABS: Adenovirus Not Detected (Not Detect); Bordetella Pertussis Not Detected (Not Detect); Chlamydophila pneumoniae Not Detected (Not Detect); Coronavirus 229E Not Detected (Not Detect); Coronavirus HKU1 Not Detected (Not Detect); Coronavirus NL63 Not Detected (Not Detect); Coronavirus OC43 Not Detected (Not Detect); Human Metapneumovirus Not Detected (Not Detect); Human Rhinovirus/Enterovirus Not Detected (Not Detect); Influenza A Subtype 2009 H1 Not Detected (Not Detect); Influenza A Untypeable Not Detected (Not Detect); Influenza B Not Detected (Not Detect); Mycoplasma pneumoniae Not Detected (Not Detect); Parainfluenza Virus 1 Not Detected (Not Detect); Parainfluenza Virus 2 Not Detected (Not Detect); Parainfluenza Virus 3 Not Detected (Not Detect); Parainfluenza Virus 4 Not Detected (Not Detect); Respiratory Syncytial Virus Not Detected (Not Detect)
[2019-06-10] MEDS ORDERED: ONGLYZA 5 MG SCH (09:00)
[2019-06-10] MEDS ORDERED: DALIRESP 500 MCG SCH (09:00)
[2019-06-10] MEDS ORDERED: FLUoxetine 20 MG CAPSULE PO SCH (09:00)
[2019-06-10 09:27] LABS: Acinetobacter baumannii by PCR Not Detected (Not Detect); Candida albicans by PCR Not Detected (Not Detect); Candida glabrata by PCR Not Detected (Not Detect); Candida krusei by PCR Not Detected (Not Detect); Candida parapsilosis by PCR Not Detected (Not Detect); Candida tropicalis by PCR Not Detected (Not Detect); Enterobacter cloacae Cmplx PCR Not Detected (Not Detect); Enterobacteriaceae by PCR Not Detected (Not Detect); Enterococcus by PCR Not Detected (Not Detect); Escherichia coli by PCR Not Detected (Not Detect); Klebsiella oxytoca by PCR Not Detected (Not Detect); Klebsiella pneumoniae by PCR Not Detected (Not Detect); Proteus by PCR Not Detected (Not Detect); Pseudomonas aeruginosa by PCR Not Detected (Not Detect); Serratia marcescens by PCR Not Detected (Not Detect); Staphylococcus aureus by PCR Not Detected (Not Detect); Staphylococcus by PCR Not Detected (Not Detect); Streptococcus agalactiae(B)PCR Not Detected (Not Detect); Streptococcus pneumoniae PCR DETECTED (Not Detect); Streptococcus pyogenes (A) PCR Not Detected (Not Detect)
[2019-06-10] MEDS ORDERED: levoFLOXacin 750 MG/150 ML 750 MG/150 ML BAG IVPB SCH (13:00)
== END 2019-06-09 20:16 | disposition short-term general hospital (02) | DRG 871 ==
LOC: EMEROOPIK 11:43 → INPPIK 14:04
PROVIDERS: ADMIT Family Medicine; ATTEND Family Medicine

== ENCOUNTER 2019-12-27 20:21 | Inpatient (IN) ==
[2019-12-27 21:16] LABS: Basophils # 0.1 K/mcL (0.0-0.2); Basophils % 0.5 %; Eosinophils % 1.1 %; Hematocrit 32.3 % (35.3-44.9); Hemoglobin 9.9 g/dL (11.5-15.4); Immature Granulocytes % 1.9 % (0-4); Lymphocytes # 1.4 K/mcL (0.6-4.6); Lymphocytes % 10.3 %; Mean Corpuscular HGB Conc 30.7 g/dL (31.6-35.5); Mean Corpuscular Volume 75.1 fL (83.0-100.0); Mean Platelet Volume 11.3 fL (9.4-12.4); Monocytes # 0.8 K/mcL (0.0-1.3); Neutrophils # 10.7 K/mcL (1.6-8.9); Platelet Count 267 K/mcL (140-400); Red Cell Distribution Width 15.9 % (11.5-14.5); Segmented Neutrophils % 80.2 %; White Blood Count 13.3 K/mcL (4.3-11.1)
[2019-12-27 21:17] LABS: Eosinophils # 0.2 K/mcL (0.0-0.6)
[2019-12-27 21:35] LABS: BUN/Creatinine Ratio 16 (6-26); Blood Urea Nitrogen 11 mg/dL (8-23); Calcium 9.1 mg/dL (8.6-10.3); Carbon Dioxide 30 mEq/L (23-29); Chloride 88 mEq/L (98-107); Glucose 159 mg/dL (70-105); Osmolality,Calculated 273 (280-300); Potassium 3.1 mEq/L (3.5-5.1); Sodium 130 mEq/L (136-145); eGFR For African Americans > 60 (> 60); eGFR For Non-African Americans > 60 (> 60)
[2019-12-27 21:36] LABS: Troponin I < 0.03 ng/mL (< 0.04)
[2019-12-27 21:40] LABS: Activated Partial Thrombo Time 39.7 Seconds (26.0-36.0); INR 1.5; Prothrombin Time 16.8 Seconds (9.4-12.1)
[2019-12-28] MEDS ORDERED: Azithromycin 500 MG in 0.9 % Sodium Chloride 250 ML IVPB ONE (00:17)
[2019-12-28] MEDS ORDERED: cefTRIAXone 1,000 MG in Water for inj. (sterile) 10 ML IVP ONE (00:17)
[2019-12-28] MEDS ORDERED: Dextrose Gel 15 GM/37.5 ML TUBE PO PRN ×4 (01:26→02:22)
[2019-12-28] MEDS ORDERED: D5% in Water 1,000 ML IVC PRN ×2 (01:26→02:22)
[2019-12-28] MEDS ORDERED: *HR* Dextrose 50 % in Water (Vial) 50 ML VIAL IVP PRN ×2 (01:26→02:22)
[2019-12-28] MEDS ORDERED: Ondansetron 4 MG/2 ML VIAL IVP ONE ×2 (01:45→02:22)
[2019-12-28] MEDS ORDERED: Ondansetron 4 MG/2 ML VIAL ONE (01:50)
[2019-12-28] MEDS ORDERED: hydrOXYzine pamoate 25 MG CAPSULE PO PRN (02:22)
[2019-12-28 07:27] LABS: Basophils # 0.1 K/mcL (0.0-0.2); Basophils % 0.4 %; Eosinophils # 0.1 K/mcL (0.0-0.6); Eosinophils % 0.8 %; Hemoglobin 10.1 g/dL (11.5-15.4); Immature Granulocytes % 1.8 % (0-4); Lymphocytes # 1.8 K/mcL (0.6-4.6); Lymphocytes % 15.4 %; Mean Corpuscular HGB Conc 30.6 g/dL (31.6-35.5); Mean Corpuscular Hemoglobin 23.3 pg (28.0-33.3); Mean Corpuscular Volume 76.2 fL (83.0-100.0); Mean Platelet Volume 11.4 fL (9.4-12.4); Monocytes % 8.4 %; Neutrophils # 8.7 K/mcL (1.6-8.9); Platelet Count 266 K/mcL (140-400); Red Blood Count 4.33 M/mcL (3.82-4.97); Red Cell Distribution Width 15.7 % (11.5-14.5); Segmented Neutrophils % 73.2 %; White Blood Count 11.9 K/mcL (4.3-11.1)
[2019-12-28] MEDS ORDERED: Insulin LISPRO 300 UNITS/3 ML VIAL SQ SCH ×2 (07:30→21:00)
[2019-12-28] MEDS: Budesonide/Formoterol 160/4.5 1 PUFF INH IH SCH ×2 (07:41→22:52)
[2019-12-28 07:50] LABS: BUN/Creatinine Ratio 15 (6-26); Blood Urea Nitrogen 9 mg/dL (8-23); Carbon Dioxide 32 mEq/L (23-29); Chloride 91 mEq/L (98-107); Glucose 158 mg/dL (70-105); Osmolality,Calculated 278 (280-300); Potassium 3.3 mEq/L (3.5-5.1); Sodium 133 mEq/L (136-145); eGFR For African Americans > 60 (> 60); eGFR For Non-African Americans > 60 (> 60)
[2019-12-28 08:06] LABS: Platelet Estimate Normal (Normal)
[2019-12-28] MEDS ORDERED: *HR* SitaGLIPtin 25 MG TABLET PO SCH (09:00)
[2019-12-28] MEDS: Pregabalin 75 MG CAPSULE PO SCH ×2 (10:15→21:38)
[2019-12-28] MEDS: Insulin DETEMIR 100 UNIT/ML per UNIT SQ SCH (10:15)
[2019-12-28] MEDS: Aspirin Enteric Coated 81 MG Tablet PO SCH (10:15)
[2019-12-28] MEDS: Isosorbide MONOnitrate (24 HR) 60 MG TAB.ER.24H PO SCH (10:15)
[2019-12-28] MEDS: Bumetanide 1 MG TABLET PO SCH (10:15)
[2019-12-28] MEDS: Sucralfate 1 GM TABLET PO SCH (10:15)
[2019-12-28] MEDS: Metoprolol XL (24 HR) Succ 25 MG TAB.ER.24H PO SCH (10:16)
[2019-12-28] MEDS: FLUoxetine 20 MG CAPSULE PO SCH (10:16)
[2019-12-28] MEDS: methocarbamoL 500 MG TABLET PO SCH ×3 (10:16→21:37)
[2019-12-28] MEDS: Ascorbic Acid 500 MG TABLET PO SCH (10:16)
[2019-12-28] MEDS: Cholecalciferol (D-3) 1,000 UNIT (25MCG) TABLET PO SCH (10:16)
[2019-12-28] MEDS: allopurinoL 100 MG TABLET PO SCH (10:16)
[2019-12-28] MEDS: Apixaban 5 MG TABLET PO SCH ×2 (10:16→21:38)
[2019-12-28] MEDS: Insulin LISPRO 300 UNITS/3 ML VIAL SQ SCH ×4 (10:16→21:38)
[2019-12-28] MEDS: STIOLTO RESPIMAT IH SCH (10:17)
[2019-12-28] MEDS: Roflumilast [Daliresp] 500 MCG PO SCH (10:17)
[2019-12-28] MEDS: Saxagliptin Hcl [Onglyza] 5 MG PO SCH (10:17)
[2019-12-28] MEDS: MethylPREDNISolone 40 MG/ML VIAL IVP SCH ×3 (11:58→23:54)
[2019-12-28] MEDS: 0.9 % Sodium Chloride 1,000 ML IVC SCH (11:58)
[2019-12-28 13:26] LABS: Adenovirus Not Detected (Not Detect); Coronavirus 229E Not Detected (Not Detect); Coronavirus HKU1 Not Detected (Not Detect); Coronavirus NL63 Not Detected (Not Detect); Coronavirus OC43 Not Detected (Not Detect); Human Metapneumovirus Not Detected (Not Detect); Human Rhinovirus/Enterovirus DETECTED (Not Detect); Influenza A Subtype 2009 H1 Not Detected (Not Detect); Influenza B Not Detected (Not Detect); Parainfluenza Virus 1 Not Detected (Not Detect); Parainfluenza Virus 2 Not Detected (Not Detect)
[2019-12-28 13:27] LABS: Bordetella Pertussis Not Detected (Not Detect); Chlamydophila pneumoniae Not Detected (Not Detect); Mycoplasma pneumoniae Not Detected (Not Detect); Parainfluenza Virus 3 Not Detected (Not Detect); Parainfluenza Virus 4 Not Detected (Not Detect); Respiratory Syncytial Virus Not Detected (Not Detect)
[2019-12-28] MEDS ORDERED: Ondansetron 4 MG/2 ML VIAL IVP PRN (15:03)
[2019-12-28] MEDS: Oxymetazoline Nasal SPRAY BOTTLE NS SCH (16:34)
[2019-12-28] MEDS: Acetaminophen 325 MG TABLET PO PRN (21:44)
[2019-12-28] MEDS: cefTRIAXone 1,000 MG in 0.9 % Sodium Chloride Mini Bag 100 ML IVPB SCH (23:47)
[2019-12-29] MEDS: Azithromycin 500 MG in 0.9 % Sodium Chloride 250 ML IVPB SCH (00:30)
[2019-12-29] MEDS: 0.9 % Sodium Chloride 1,000 ML IVC SCH (03:44)
[2019-12-29] MEDS: Oxymetazoline Nasal SPRAY BOTTLE NS SCH ×2 (05:31→16:42)
[2019-12-29 07:49] LABS: Basophils % 0.2 %; Hemoglobin 9.4 g/dL (11.5-15.4); Immature Granulocytes % 1.5 % (0-4); Lymphocytes # 0.7 K/mcL (0.6-4.6); Lymphocytes % 8.2 %; Mean Corpuscular HGB Conc 29.4 g/dL (31.6-35.5); Mean Corpuscular Volume 78.2 fL (83.0-100.0); Monocytes # 0.4 K/mcL (0.0-1.3); Monocytes % 4.9 %; Neutrophils # 6.8 K/mcL (1.6-8.9); Platelet Count 252 K/mcL (140-400); Red Blood Count 4.09 M/mcL (3.82-4.97); Red Cell Distribution Width 15.9 % (11.5-14.5); Segmented Neutrophils % 85.2 %
[2019-12-29 08:07] LABS: BUN/Creatinine Ratio 24 (6-26); Blood Urea Nitrogen 16 mg/dL (8-23); Calcium 8.7 mg/dL (8.6-10.3); Carbon Dioxide 28 mEq/L (23-29); Chloride 96 mEq/L (98-107); Glucose 221 mg/dL (70-105); Osmolality,Calculated 286 (280-300); Potassium 4.1 mEq/L (3.5-5.1); Sodium 134 mEq/L (136-145); eGFR For African Americans > 60 (> 60); eGFR For Non-African Americans > 60 (> 60)
[2019-12-29] MEDS: Insulin LISPRO 300 UNITS/3 ML VIAL SQ SCH ×4 (09:26→20:52)
[2019-12-29] MEDS: methocarbamoL 500 MG TABLET PO SCH ×3 (09:27→20:51)
[2019-12-29] MEDS: Insulin DETEMIR 100 UNIT/ML per UNIT SQ SCH (09:27)
[2019-12-29] MEDS: Ascorbic Acid 500 MG TABLET PO SCH (09:28)
[2019-12-29] MEDS: Pregabalin 75 MG CAPSULE PO SCH ×2 (09:28→20:51)
[2019-12-29] MEDS: Apixaban 5 MG TABLET PO SCH ×2 (09:28→20:51)
[2019-12-29] MEDS: Bumetanide 1 MG TABLET PO SCH (09:28)
[2019-12-29] MEDS: Aspirin Enteric Coated 81 MG Tablet PO SCH (09:29)
[2019-12-29] MEDS: Sucralfate 1 GM TABLET PO SCH (09:29)
[2019-12-29] MEDS: Metoprolol XL (24 HR) Succ 25 MG TAB.ER.24H PO SCH (09:29)
[2019-12-29] MEDS: Isosorbide MONOnitrate (24 HR) 60 MG TAB.ER.24H PO SCH (09:29)
[2019-12-29] MEDS: FLUoxetine 20 MG CAPSULE PO SCH (09:30)
[2019-12-29] MEDS: allopurinoL 100 MG TABLET PO SCH (09:30)
[2019-12-29] MEDS: Cholecalciferol (D-3) 1,000 UNIT (25MCG) TABLET PO SCH (09:30)
[2019-12-29] MEDS: MethylPREDNISolone 40 MG/ML VIAL IVP SCH ×2 (09:30→16:42)
[2019-12-29] MEDS: Roflumilast [Daliresp] 500 MCG PO SCH (09:31)
[2019-12-29] MEDS: STIOLTO RESPIMAT IH SCH (09:31)
[2019-12-29] MEDS: Saxagliptin Hcl [Onglyza] 5 MG PO SCH (09:31)
[2019-12-29] MEDS: Budesonide/Formoterol 160/4.5 1 PUFF INH IH SCH ×2 (10:00→22:23)
[2019-12-29] MEDS: Acetaminophen 325 MG TABLET PO PRN (22:42)
[2019-12-29] MEDS: cefTRIAXone 1,000 MG in 0.9 % Sodium Chloride Mini Bag 100 ML IVPB SCH (23:54)
[2019-12-30] MEDS: MethylPREDNISolone 40 MG/ML VIAL IVP SCH ×2 (00:35→08:41)
[2019-12-30] MEDS: Azithromycin 500 MG in 0.9 % Sodium Chloride 250 ML IVPB SCH (00:35)
[2019-12-30] MEDS: Oxymetazoline Nasal SPRAY BOTTLE NS SCH (06:02)
[2019-12-30 07:04] VITALS: BP 132/60
[2019-12-30 07:24] LABS: Basophils % 0.1 %; Hematocrit 32.4 % (35.3-44.9); Hemoglobin 9.4 g/dL (11.5-15.4); Immature Granulocytes % 1.1 % (0-4); Lymphocytes # 0.8 K/mcL (0.6-4.6); Lymphocytes % 7.6 %; Mean Corpuscular Hemoglobin 22.9 pg (28.0-33.3); Mean Corpuscular Volume 78.8 fL (83.0-100.0); Mean Platelet Volume 10.9 fL (9.4-12.4); Monocytes # 0.3 K/mcL (0.0-1.3); Monocytes % 2.6 %; Neutrophils # 9.3 K/mcL (1.6-8.9); Platelet Count 220 K/mcL (140-400); Red Blood Count 4.11 M/mcL (3.82-4.97); Red Cell Distribution Width 15.8 % (11.5-14.5); Segmented Neutrophils % 88.6 %; White Blood Count 10.5 K/mcL (4.3-11.1)
[2019-12-30 07:36] LABS: BUN/Creatinine Ratio 28 (6-26); Blood Urea Nitrogen 18 mg/dL (8-23); Calcium 8.9 mg/dL (8.6-10.3); Carbon Dioxide 31 mEq/L (23-29); Chloride 95 mEq/L (98-107); Glucose 207 mg/dL (70-105); Osmolality,Calculated 286 (280-300); Potassium 4.4 mEq/L (3.5-5.1); Sodium 134 mEq/L (136-145); eGFR For African Americans > 60 (> 60); eGFR For Non-African Americans > 60 (> 60)
[2019-12-30] MEDS: Apixaban 5 MG TABLET PO SCH (08:42)
[2019-12-30] MEDS: allopurinoL 100 MG TABLET PO SCH (08:42)
[2019-12-30] MEDS: Pregabalin 75 MG CAPSULE PO SCH (08:42)
[2019-12-30] MEDS: methocarbamoL 500 MG TABLET PO SCH (08:42)
[2019-12-30] MEDS: Isosorbide MONOnitrate (24 HR) 60 MG TAB.ER.24H PO SCH (08:42)
[2019-12-30] MEDS: Aspirin Enteric Coated 81 MG Tablet PO SCH (08:42)
[2019-12-30] MEDS: Ascorbic Acid 500 MG TABLET PO SCH (08:42)
[2019-12-30] MEDS: Sucralfate 1 GM TABLET PO SCH (08:43)
[2019-12-30] MEDS: Bumetanide 1 MG TABLET PO SCH (08:43)
[2019-12-30] MEDS: FLUoxetine 20 MG CAPSULE PO SCH (08:43)
[2019-12-30] MEDS: Insulin LISPRO 300 UNITS/3 ML VIAL SQ SCH (08:43)
[2019-12-30] MEDS: Cholecalciferol (D-3) 1,000 UNIT (25MCG) TABLET PO SCH (08:43)
[2019-12-30] MEDS ORDERED: Insulin DETEMIR 100 UNIT/ML X5UNITS SQ SCH (09:00)
[2019-12-30] MEDS ORDERED: STIOLTO RESPIMAT IH SCH (10:00)
[2019-12-30] MEDS: Budesonide/Formoterol 160/4.5 1 PUFF INH IH SCH (10:50)
[2019-12-31] MEDS ORDERED: Azithromycin 500 MG in 0.9 % Sodium Chloride 250 ML IVPB SCH (01:00)
== END 2019-12-30 11:26 | disposition home health service (06) | DRG 871 ==
LOC: INPPIK 20:21 → EMEROOPIK 20:21 → INPPIK 12-28 02:17
PROVIDERS: ADMIT Family Medicine; ATTEND Family Medicine